=== PATIENT | male | born 1930 | race Caucasian/White ===

== ENCOUNTER → 2019-01-03 | Outpatient (CLI) | payer MEDICARE ==
--- NOTE | 2019-01-04 13:36 | Diagnostic Imaging Report ---
PROCEDURE:X-RAY MODIFIED BARIUM SWALLOW COMPARISON:None. INDICATIONS:Not provided. Fluoroscopy time: 1.9 minutes DAP: 1.43 Gycm2 DISCUSSION:Fluoroscopic examination was performed in conjunction with speech pathology, during swallowing of a variety of thin and thick liquid consistencies. CONCLUSION:Laryngeal penetration with thin liquid administration. Trace silent aspiration of thin liquids with cup and straw sips. Please see the report from speech pathology for complete details. Dictated by: Nikko Timmons M.D. on 01/04/2019 at 13:40 Electronically approved by: Nikko Timmons M.D. on 01/04/2019 at 13:40
== END ==
LOC: DX 11:32
PROVIDERS: ATTEND Psychiatry & Neurology Neurology
DX: R13.10 Dysphagia, unspecified (principal); G20 Parkinson's disease; G31.83 Neurocognitive disorder with Lewy bodies
CPT/HCPCS: 74230

== ENCOUNTER → 2019-02-01 | Outpatient (RCR) | payer MEDICARE ==
--- NOTE | 2019-01-12 15:12 | NUR ---
Patient Name: Damaso Frank: 1930 Age/Sex: 88/maleOrdering Physician: Tyrell Machado MD Clinical Swallow Evaluation/Initial Treatment Session Patient is a 88 year old male with diagnosis of dysphagia and choking. PMH includs dementia. Pt/spouse reported several month h/o difficulty swallowing, liquids more than solids. Pt stated that he coughs every once in a while when he drinks liquids and he must be careful with everything he chews, including oatmeal and mashed potatoes. Pt/spouse denied recent PNA, bronchitis, or URI. Per pt/spouse report, pt is very active. He reportedly goes to the gym 4-5 times per week for cardio and light weight lifting. 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 Pt noted to have very low volume of speech. It was noted that the order for this evaluation included an order for a speech and language eval. Patient completed a modified barium swallow (MBS) study on 01/03/2019. Pt presented with mild to moderate pharyngeal dysphagia c/b consistent premature spillage over the base of tongue, SILENT aspiration of thin liquids, and consistent pharyngeal residue after the swallow. Dysphagia was judged to be secondary to decreased hyolaryngeal excursion, decreased pharyngeal constriction during the swallow, and decreased coordination of the swallow. Recommendation was made for dysphagia therapy to increase strength and coordination of swallow. Patient was seen today in the outpatient clinic for initial treatment of Neuromuscular Electrical Stimulation (NMES) with VitalStim Therapy and traditional dysphagia therapy with pharyngeal exercises. Pt was seen with spouse present. Oral motor exam revealed function that was grossly within normal limits. Patient tolerates room air. Hearing appeared to be WFL. Speech and language skills were functional. Provided extensive education re: need for therapy, purpose of exercises and NMES, and future plan of care. Pt indicated understanding. Pt was given water and he refused hard candy. Pt was instructed to take small sips and swallow hard, feeling all the muscles in her throat contract. Placement 3b was used to target the mylohyoid muscle, the anterior belly of the digastric muscle, the sternohyoid muscle, the omohyoid muscle, the geniohyoid muscle, and the middle pharyngeal constrictors. Channel 1 of the electrodes was aligned horizontally just above the hyoid bone and channel 2 of the electrodes was aligned horizontally at the level of the thyroid notch. This placement was used to improve base of tongue strength, pharyngeal constriction, and UES function. Pt initially tolerated 6.5 mA, but as the session progressed pt tolerated 12.5 mA. Pt received 50 minutes of stimulation. Cough noted X 1, throat clear X 0 and pts eyes watered the majority of the session. During NMES an exercise program was presented, demonstrated, and discussed. Pt completed the exercises with minimal assistance. A home program was assigned. Pt verbalized understanding of the home exercise program. Pt stimulable for vocal loudness with average extended phonation of 79 dB and conversational speech averaged 64 dB. Data supports pt participation in [facility] and this can be initiated either during or after completion of dysphagia therapy with NMES. Education provided as indicated. All questions were answered. Pt/spouse indicated that attending therapy 3x/week would be convenient Impressions: Pt tolerated initial session of NMES well. He continues to report and demonstrate s/s of aspiration during meals which significantly interferes with his quality of life. Pt is an excellent candidate for dysphagia exercises and NMES for improvement of strength and coordination of swallow. Recommendations: 1.Dysphagia therapy to include traditional exercises and NMES 3X/week for 4 weeks for a total of 12 treatment sessions 2.Home exercise program 3.Repeat MBS in 4-6 weeks with new goals to be determined at that time Senior Care Goal: Pt will tolerate least restrictive diet without s/s of aspiration as judged by an objective evaluation. Short Term Goals: 1.Pt will complete 3 repetitions of a set of dysphagia exercises to improve laryngeal elevation, base of tongue retraction, and laryngeal closure, 10 repetitions per exercise, with minimal cues. 2.Pt will tolerate NMES for 45 60 minutes with no clinical s/s of aspiration to improve strength of pharyngeal constrictors, hyolaryngeal excursion, and safety with po intake. 3.Pt will complete home dysphagia exercise program targeting laryngeal elevation, base of tongue strength, and cricopharyngeal function independently. 4.Pt will follow aspiration precautions with independence. 5.Pt will participate in a repeat Modified Barium Swallow study to objectively re-assess swallow safety and function and determine safest diet. Stacie Brown M.S. CCC-MEAT PICK[employer]ER Date of Session: 01/12/19 Dysphagia Evaluation and Treatment X 60 minutes Physicians signature below certifies medical necessity for these skilled interventions Physician Signature Date NOMS Rating for Swallowing: Level 5
== END ==
LOC: PT 01-12 09:48
PROVIDERS: ATTEND Psychiatry & Neurology Neurology
DX: G20 Parkinson's disease (principal); M62.81 Muscle weakness (generalized); R26.2 Difficulty in walking, not elsewhere classified

== ENCOUNTER → 2019-02-10 | Outpatient (CLI) | payer MEDICARE ==
--- NOTE | 2019-02-13 08:49 | Diagnostic Imaging Report ---
PROCEDURE: X-RAY MODIFIED BARIUM SWALLOW COMPARISON: None. INDICATION: Aspiration Radiation Details: Fluoroscopy time: 1.7 minutes Cumulative dose: 5.4 mGy DISCUSSION: Fluoroscopic examination was performed in conjunction with speech pathology during swallowing a variety of thin and thick liquid consistencies. Provided images demonstrate laryngeal penetration and silent aspiration. CONCLUSION: Modified barium swallow demonstrating laryngeal penetration and silent aspiration. Please refer to the speech pathology report for further details. Signed by: Kelvin Kimball MD on 02/13/2019 8:45 AM
== END ==
LOC: DX 10:09
PROVIDERS: ATTEND Specialist
DX: R13.13 Dysphagia, pharyngeal phase (principal); G20 Parkinson's disease; F02.80 Dementia in other diseases classified elsewhere, unspecified severity, without behavioral disturbance, psychotic disturbance, mood disturbance, and anxiety
CPT/HCPCS: 74230

== ENCOUNTER 2019-03-03 12:51 | Outpatient (RCR) | payer MEDICARE ==
--- NOTE | 2019-02-27 09:38 | NUR ---
ST NOTE: Pt cx apt, he is ill. Pt scheduled for 03/02/19 at 1200
== END 2019-03-04 ==
LOC: ST 12:51
PROVIDERS: ATTEND Psychiatry & Neurology Neurology
DX: G20 Parkinson's disease (principal); M62.81 Muscle weakness (generalized); R26.89 Other abnormalities of gait and mobility; R26.2 Difficulty in walking, not elsewhere classified

== ENCOUNTER 2019-03-13 09:53 | Outpatient (RCR) | payer MEDICARE | END 2019-04-03 | LOC: ST 09:53 | PROVIDERS: ATTEND Psychiatry & Neurology Neurology | DX: G20 Parkinson's disease (principal); M62.81 Muscle weakness (generalized); R26.2 Difficulty in walking, not elsewhere classified ==

== ENCOUNTER → 2019-03-15 | Outpatient (CLI) | payer MEDICARE ==
--- NOTE | 2019-03-20 12:41 | Diagnostic Imaging Report ---
PROCEDURE: X-RAY MODIFIED BARIUM SWALLOW COMPARISON: Modified barium swallow of 02/10/2019. INDICATION: Dysphasia Radiation Details: Fluoroscopy time: 1.8 minutes Cumulative dose: 6.1 mGy DISCUSSION: Fluoroscopic examination was performed in conjunction with speech pathology during swallowing a variety of thin and thick liquid consistencies. Provided images demonstrate one episode of laryngeal penetration and no aspiration. CONCLUSION: Modified barium swallow demonstrating one episode of laryngeal penetration and no aspiration. Please refer to the speech pathology report for further details. Signed by: Kelvin Kimball MD on 03/20/2019 12:38 PM
== END ==
LOC: DX 09:29
PROVIDERS: ATTEND Specialist
DX: R13.13 Dysphagia, pharyngeal phase (principal); R09.89 Other specified symptoms and signs involving the circulatory and respiratory systems; F03.90 Unspecified dementia, unspecified severity, without behavioral disturbance, psychotic disturbance, mood disturbance, and anxiety
CPT/HCPCS: 74230

== ENCOUNTER 2020-01-16 19:39 | Emergency (ER) | payer MEDICARE, OTHER ==
--- NOTE | 2020-01-16 20:09 | Emergency Department Note ---
History of Present Illnes History of Present Illness Chief Complaint: Extremity Trauma/Pain History of Present Illness This is a 89 year old male brought by [facility] for unwitnessed fall. Patient was recovering from rehab earlier today and had felt weak and had fallen down. Seen at bedside with no complaint. PCP requested XR for evaluation of R femur. 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 Any updates have been documented here. Past Medical History Recent Fever: No Clinical Suspicion of Infectio: No New/Unexplained Change in Ment: No Other Medical History: parkinsons Past Surgical History: Pacer/AICD Social History Smoking Cessation: Never Smoker Review of Systems Review of Systems Constitutional: Reports no symptoms EENTM: Reports no symptoms Cardiovascular: Reports no symptoms Respiratory: Reports no symptoms Gastrointestinal: Reports no symptoms Genitourinary: Reports no symptoms Musculoskeletal: Reports no symptoms Integumentary: Reports no symptoms Neurological: Reports no symptoms Psychological: Reports no symptoms Endocrine: Reports no symptoms Hematological/Lymphatic: Reports no symptoms Physical Exam Related Data Allergies: Coded Allergies: No Known Allergies (Unverified , 01/16/20) Triage Vital Signs Vital Signs Date Time Temp Pulse Resp B/P (MAP) Pulse Ox O2 Delivery O2 Flow Rate FiO2 01/16/20 19:50 98.3 112 20 150/93 96 Room Air Vital signs reviewed: Yes Physical Exam CONSTITUTIONAL Constitutional: Present cachectic HENT HENT: Present normocephalic, Present atraumatic, Present oropharynx clear/moist, Present nose normal HENT L/R: Present left ext ear normal, Present right ext ear normal EYES Eyes: Reports PERRL, Reports conjunctivae normal NECK Neck: Present ROM normal PULMONARY Pulmonary: Present effort normal, Present breath sounds normal CARDIOVASCULAR Cardiovascular: Present tachycardia GASTROINTESTINAL Abdominal: Present soft, Present nontender, Present bowel sounds normal GENITOURINARY Genitourinary: Present exam deferred SKIN Skin: Present warm, Present dry MUSCULOSKELETAL Musculoskeletal: Present ROM normal NEUROLOGICAL Neurological: Present alert, Present oriented x 3, Present no gross motor or sensory deficits PSYCHOLOGICAL Psychological: Present mood/affect normal, Present judgement normal Results Imaging Imaging results reviewed: Yes Impressions [place] [address] Patient Name: WAYNE MCCARTNEY MR #: [id number] : 1930 Age/Sex: 89/M Req #: [id number] Adm Physician: Ordered by: SAHIL CADET DO Report #: [id number] Location: ER Room/Bed: Procedure: [id number] DX/FEMUR 2 VIEWS MINIMUM LEFT Exam Date: Exam Time: REPORT STATUS: Signed Exam: Left femur, 4 views History: Status post fall, leg pain. Comparison: None. Findings: There is decreased bone mineralization, which limits evaluation of the bony structures.. No acute, displaced fracture or dislocation. Mild to moderate degenerative changes in the left hip joint. 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 Vascular calcifications. No aggressive lytic or suspicious focal sclerotic lesions. No soft tissue swelling. Impression: 1. No acute, displaced fracture or dislocation despite the limitations. Signed by: Dr. Hieu Jackson M.D. on 01/16/2020 9:34 PM Dictated By: HIEU JACKSON MD 33 Transcribed By: ELAYNE on 01/16/202133 COPY TO: SAHIL CADET DO~ [place] [address] Patient Name: WAYNE MCCARTNEY MR #: [id number] : 1930 Age/Sex: 89/M Req #: [id number] [facility] Physician: Ordered by: SAHIL CADET DO Report #: [id number] Location: ER Room/Bed: Procedure: [id number] DX/FEMUR 2 VIEWS MINIMUM LEFT Exam Date: Exam Time: REPORT STATUS: Signed Exam: Left femur, 4 views History: Status post fall, leg pain. Comparison: None. Findings: There is decreased bone mineralization, which limits evaluation of the bony structures.. No acute, displaced fracture or dislocation. Mild to moderate degenerative changes in the left hip joint. 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 Vascular calcifications. No aggressive lytic or suspicious focal sclerotic lesions. No soft tissue swelling. Impression: 1. No acute, displaced fracture or dislocation despite the limitations. Signed by: Dr. Hieu Jacskon M.D. on 01/16/2020 9:34 PM Dictated By: HIEU JACKSON MD 33 Transcribed By: ELAYNE on 01/16/202133 COPY TO: SAHIL CADET DO~ Procedures 12 Lead ECG Interpretation ECG Interpretation : ECG: ECG 1 Silica Filter Operator: Interpreted by ED physician Date: Jan 16, 2020 Time: 20:07 Prior ECG tracings: reviewed Rhythm: sinus rhythm Ectopy: frequent PVC's BPM: 106 ST segments normal: Yes T waves normal: Yes Pacin% capture Assessment & Plan Medical Decision Making MDM Diff Dx : sprain, strain, fracture, contusion Assessment & Plan Final Impression: (1) Left thigh pain Depart Disposition: HOME, SELF-CARE Last Vital Signs Date Time Temp Pulse Resp B/P (MAP) Pulse Ox O2 Delivery O2 Flow Rate FiO2 01/16/20 19:50 98.3 112 20 150/93 96 Room Air SAHIL CADET DO Jan 16, 2020 20:09
--- NOTE | 2020-01-16 21:14 | NUR ---
Patient resting with no distress noted. RR even and unlabored. Will continue to monitor patient.
--- NOTE | 2020-01-16 21:38 | Diagnostic Imaging Report ---
Exam: Left femur, 4 views History: Status post fall, leg pain. Comparison: None. Findings: There is decreased bone mineralization, which limits evaluation of the bony structures.. No acute, displaced fracture or dislocation. Mild to moderate degenerative changes in the left hip joint. 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 Vascular calcifications. No aggressive lytic or suspicious focal sclerotic lesions. No soft tissue swelling. Impression: 1. No acute, displaced fracture or dislocation despite the limitations. Signed by: Dr. Rodrgio Jackson M.D. on 01/16/2020 9:34 PM
--- NOTE | 2020-01-16 21:41 | Diagnostic Imaging Report ---
Exam: Left hip and AP pelvis, 3 views History: Status post fall, left Comparison: None. Findings: There is decreased bone mineralization, which limits evaluation of the bony structures. No acute, displaced fracture or dislocation. Mild to moderate degenerative changes in bilateral hip and sacroiliac joints and lower lower lumbosacral spine. No lytic lesions. Well-circumscribed 2.0 cm round sclerotic focus projecting over the left iliac crest likely represents a gluteal injection granuloma and less likely a bone island. No soft tissue swelling. Impression: 1. No acute, displaced fracture or dislocation despite the limitations of the study. Correlate clinically for need for further imaging. Signed by: Dr. Rodrigo Jackson M.D. on 01/16/2020 9:38 PM
[2020-01-16 21:45] VITALS: BP 142/91
== END 2020-01-16 22:15 | disposition home or self-care (01) ==
LOC: ER 20:00
DX: M79.652 Pain in left thigh (principal); W18.30XA Fall on same level, unspecified, initial encounter; G20 Parkinson's disease; Z95.810 Presence of automatic (implantable) cardiac defibrillator
CPT/HCPCS: 93005; 99283

== ENCOUNTER → 2020-01-26 | Outpatient (CLI) | payer MEDICARE ==
[~2020-01-26] MED LIST: ADVIL100 M1 PO; ASPIRIN81 MG PO; DONEPEZIL HCL5 MG SL; FLOMAX0.4 MG PO; FUROSEMIDE40 MG PO; MIRALAX17 GM PO; MULTI-VITAMIN1 EACH PO; NAPROXEN250 MG PO; SINEMET 25-1001 EACH PO
--- NOTE | 2020-01-26 17:40 | Diagnostic Imaging Report ---
Bone Scan, three-phase Reason for exam: 89 M with left leg pain. Sustained on fall on his left side on 01/16/2020 and has complained of leg pain since the fall. Radiopharmaceutical: Tc-99m MDP 27.4 mCi IV RAC Comparison: Left femur and hip radiographs 01/16/2020 Following intravenous administration of the radiopharmaceutical, dynamic flow and immediate blood pool images of the thighs followed by delayed total body and selected spot images were obtained. The flow and blood pool images show symmetric distribution of tracer in the thighs and knees bilaterally. The hips were not included on these images. Two small round foci of increased tracer are seen in the anterior aspect of the left 3rd and 4th ribs in an adjacent pattern. Focal moderately increased tracer is seen in the femoral neck of the left femur. A left knee prosthesis is present and has not associated increased osteoblastic activity. Impression: 1. Acute fracture in the left femoral neck. 2. Healing rib fractures in the left 3rd and 4th ribs anteriorly. 3. Dr. Ankit Jacobsen was notified of these results at 5:30 pm on 01/26/2020. Signed by: Dr. Annmarie Waite M.D. on 01/26/2020 5:37 PM
== END ==
LOC: NM 09:52
PROVIDERS: ATTEND Specialist
DX: M79.605 Pain in left leg (principal); S72.002A Fracture of unspecified part of neck of left femur, initial encounter for closed fracture; W19.XXXA Unspecified fall, initial encounter
CPT/HCPCS: 78315; A9503

== ENCOUNTER 2020-01-28 11:04 | Inpatient (IN) | payer MEDICARE, OTHER ==
[~2020-01-28] VITALS: Ht 175.3 cm; Wt 80.3 kg
[2020-01-28 11:38] LABS: BASOPHILS % 0.4 % (0.0-1.0); EOSINOPHILS # (AUTO) 0.1 (0.0-0.4); EOSINOPHILS % 1.6 % (0.0-6.0); HEMATOCRIT 42.6 % (38.2-49.6); HEMOGLOBIN 14.1 g/dL (14.0-18.0); LYMPHOCYTES # (AUTO) 0.7 (1.0-3.2); LYMPHOCYTES % 9.4 % (18.0-39.1); MEAN CORPUSCULAR HEMOGLOBIN 32.8 pg (28-32); MEAN CORPUSCULAR HGB CONC 33.1 g/dL (31-35); MEAN CORPUSCULAR VOLUME 99.1 fL (81-99); MONOCYTES # (AUTO) 0.7 (0.2-0.8); MONOCYTES % 9.1 % (4.4-11.3); NEUTROPHILS % 79.1 % (38.7-80.0); PLATELET COUNT 302 x10e3/uL (140-360)
[2020-01-28 11:48] LABS: INR 0.97; PROTHROMBIN TIME 13.4 seconds (11.9-14.5)
[2020-01-28 11:49] LABS: PARTIAL THROMBOPLASTIN TIME 35.3 seconds (23.8-35.5)
[2020-01-28 11:58] LABS: ALANINE AMINOTRANSFERASE 15 IU/L (0-55); ALBUMIN 3.7 g/dL (3.5-5.0); ALBUMIN/GLOBULIN RATIO 1.4 (0.8-2.0); ALKALINE PHOSPHATASE 78 IU/L (40-150); ANION GAP 14.1 mmol/L (8-16); BLOOD UREA NITROGEN 14 mg/dL (7-26); BUN/CREATININE RATIO 17 (6-25); CALCIUM 8.8 mg/dL (8.4-10.2); CARBON DIOXIDE 25 mmol/L (22-29); CHLORIDE 101 mmol/L (98-107); CREATINE KINASE 66 IU/L (30-200); CREATININE, SERUM 0.83 mg/dL (0.72-1.25); EST GLOMERULAR FILTRATION RATE > 60 ML/MIN (60-); GLUCOSE 106 mg/dL (74-118); POTASSIUM 4.1 mmol/L (3.5-5.1); SODIUM 136 mmol/L (136-145)
[2020-01-28] MEDS ORDERED: ONDANSETRON HCL INJ 2MG/ML 2ML 2 MG/ML VIAL IV PRN ×2 (12:15→16:30)
[2020-01-28] MEDS ORDERED: MORPHINE SULFATE 2 MG/ML SYR 1ML IV PRN (12:15)
[2020-01-28] MEDS ORDERED: SODIUM CHLORIDE 0.9% 1000ML 1,000 ML IV SCH (12:15)
[2020-01-28] MEDS ORDERED: SODIUM CHLORIDE 0.9% 1000ML 1,000 ML ONE (12:23)
--- NOTE | 2020-01-28 12:57 | Emergency Department Note ---
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 Arrival Mode: [place] Additional Treatment DEVELOPER ADVISOR: N/A [employer] Director Required: No Onset (how long ago): day(s) (10) Location: LEFT HIP Quality: PAIN Radiation: Reports non-radiation Severity: moderate Onset quality: sudden Timing of current episode: constant Chronicity: new Context: Reports trauma/injury; Denies recent illness Relieving factors: none Exacerbating factors: movement Associated symptoms: Reports denies other symptoms Treatments prior to arrival: none Past Medical/Family History Physician Review I have reviewed the patient's past medical and family history. Any updates have been documented here. Past Medical History Recent Fever: No Clinical Suspicion of Infectio: No New/Unexplained Change in Ment: No Other Medical History: parkinsons, DEMENTIA Past Surgical History: Pacer/AICD Social History Smoking Cessation: Never Smoker Counseling Performed: No Alcohol Use: None Any Illegal Drug Use: No TB Exposure/Symptoms: No Physically hurt or threatened: No Family History Family history of heart diseas: No Other Any Pre-Existing Lines (PICC,: No Review of Systems Review of Systems Constitutional: Reports no symptoms EENTM: Reports no symptoms Cardiovascular: Reports no symptoms Respiratory: Reports no symptoms Gastrointestinal: Reports no symptoms Genitourinary: Reports no symptoms Musculoskeletal: Reports as per HPI Integumentary: Reports no symptoms Neurological: Reports no symptoms Psychological: Reports no symptoms Endocrine: Reports no symptoms Hematological/Lymphatic: Reports no symptoms Physical Exam Related Data Allergies: Coded Allergies: No Known Allergies (Unverified , 01/16/20) Triage Vital Signs Vital Signs Date Time Temp Pulse Resp B/P (MAP) Pulse Ox O2 Delivery O2 Flow Rate FiO2 01/28/20 11:30 100 15 152/101 95 Room Air 01/28/20 11:32 98.1 Vital signs reviewed: Yes Physical Exam CONSTITUTIONAL Constitutional: Present well-developed, Present well-nourished HENT HENT: Present normocephalic, Present atraumatic, Present oropharynx clear/moist, Present nose normal HENT L/R: Present left ext ear normal, Present right ext ear normal EYES Eyes: Reports PERRL, Reports conjunctivae normal NECK Neck: Present ROM normal PULMONARY Pulmonary: Present effort normal, Present breath sounds normal CARDIOVASCULAR Cardiovascular: Present regular rhythm (WITH FREQUENT ECTOPY), Present tachycardia GASTROINTESTINAL Abdominal: Present soft, Present nontender, Present bowel sounds normal GENITOURINARY Genitourinary: Present exam deferred SKIN Skin: Present warm, Present dry MUSCULOSKELETAL Musculoskeletal: Present other (TENDERNESS LEFT HIP, DECR ROM LEFT HIP, PELVIS STABLE) NEUROLOGICAL Neurological: Present alert, Present oriented x 3, Present no gross motor or sensory deficits PSYCHOLOGICAL Psychological: Present mood/affect normal, Present judgement normal Results Laboratory Result Diagram: 01/28/20 1115 01/28/20 1115 Laboratory Laboratory Tests Test 01/28/20 12:10 01/28/20 11:15 White Blood Count 7.59 x10e3/uL (4.8-10.8) Red Blood Count 4.30 x10e6/uL (4.3-5.7) Hemoglobin 14.1 g/dL (14.0-18.0) Hematocrit 42.6 % (38.2-49.6) Mean Corpuscular Volume 99.1 fL (81-99) Mean Corpuscular Hemoglobin 32.8 pg (28-32) Mean Corpuscular Hemoglobin Concent 33.1 g/dL (31-35) Red Cell Distribution Width 13.0 % (11.7-14.4) Platelet Count 302 x10e3/uL (140-360) Neutrophils (%) (Auto) 79.1 % (38.7-80.0) Lymphocytes (%) (Auto) 9.4 % (18.0-39.1) Monocytes (%) (Auto) 9.1 % (4.4-11.3) Eosinophils (%) (Auto) 1.6 % (0.0-6.0) Basophils (%) (Auto) 0.4 % (0.0-1.0) Neutrophils # (Auto) 6.0 (2.1-6.9) Lymphocytes # (Auto) 0.7 (1.0-3.2) Monocytes # (Auto) 0.7 (0.2-0.8) Eosinophils # (Auto) 0.1 (0.0-0.4) Basophils # (Auto) 0.0 (0.0-0.1) Absolute Immature Granulocyte (auto 0.03 x10e3/uL (0-0.1) Prothrombin Time 13.4 seconds (11.9-14.5) Prothromb Time International Ratio 0.97 Activated Partial Thromboplast Time 35.3 seconds (23.8-35.5) Sodium Level 136 mmol/L (136-145) Potassium Level 4.1 mmol/L (3.5-5.1) Chloride Level 101 mmol/L (98-107) Carbon Dioxide Level 25 mmol/L (22-29) Anion Gap 14.1 mmol/L (8-16) Blood Urea Nitrogen 14 mg/dL (7-26) Creatinine 0.83 mg/dL (0.72-1.25) Estimat Glomerular Filtration Rate > 60 ML/MIN (60-) BUN/Creatinine Ratio 17 (6-25) Glucose Level 106 mg/dL (74-118) Calcium Level 8.8 mg/dL (8.4-10.2) Total Bilirubin 0.6 mg/dL (0.2-1.2) Aspartate Amino Transf (AST/SGOT) 25 IU/L (5-34) Alanine Aminotransferase (ALT/SGPT) 15 IU/L (0-55) Alkaline Phosphatase 78 IU/L (40-150) Creatine Kinase 66 IU/L (30-200) Creatine Kinase MB 1.90 ng/mL (0-5.0) Troponin I 0.013 ng/mL (0-0.300) B-Type Natriuretic Peptide 401.4 pg/mL (0-100) Total Protein 6.4 g/dL (6.5-8.1) Albumin 3.7 g/dL (3.5-5.0) Globulin 2.7 g/dL (2.3-3.5) Albumin/Globulin Ratio 1.4 (0.8-2.0) Lab results reviewed: Yes Imaging Imaging results reviewed: Yes Procedures 12 Lead ECG Interpretation ECG Interpretation : ECG: ECG 1 [employer] Director: Interpreted by ED physician Date: Jan 28, 2020 Time: 11:20 Rhythm: paced (VENTRICULAR PACED) Rate: tachycardia (111) QRS axis: left Conduction: left bundle branch block Clinical Impression: abnormal ECG Assessment & Plan Medical Decision Making MDM CHECK CBC, CHEM, ECG, CARDIACS, CXR, T&S - NEEDS MED CLEARANCE FOR LEFT HIP SURGERY. WILL ALSO CHECK CT BRAIN R/O CEREBRAL BLEED. I SPOKE WITH DR MOISE WHO WANTS REPEAT LEFT HIP XRAYS Reassessment Reassessment SPOKE WITH DR CADET FOR ADMISSION AND DR MOISE Assessment & Plan Final Impression: (1) Fracture of femoral neck, left (2) Fall Depart Disposition: ADMITTED Last Vital Signs Date Time Temp Pulse Resp B/P (MAP) Pulse Ox O2 Delivery O2 Flow Rate FiO2 01/28/20 12:32 107 14 143/93 95 Room Air 01/28/20 11:32 98.1 KEITH ORLANDO MD Jan 28, 2020 12:57
--- NOTE | 2020-01-28 13:38 | NUR ---
given parkinsons meds
--- NOTE | 2020-01-28 13:48 | Diagnostic Imaging Report ---
CT BRAIN WO HISTORY: Trauma COMPARISON: None. Technique: Noncontrast axial scans were obtained from skull base to the vertex. Coronal and sagittal reconstructions obtained from the axial data. One or more of the following dose reduction techniques were used: Automated exposure control, adjustment of the mA and/or kV according to patient size, and/or utilization of iterative reconstruction technique. DISCUSSION: Scalp/Skull: Unremarkable. Brain sulci: Mildly prominent. Ventricles: Compensatory dilatation. Extra-axial spaces: No masses or fluid collections. Carotid and vertebral artery calcifications are present. Parenchyma: Moderate bilateral deep white matter hypodensity is likely chronic microvascular ischemic change. Otherwise, no masses, hemorrhage, or large vascular territory acute infarct. Dural sinuses: No abnormal densities. Sellar/Suprasellar region: Intact. Skull base: Intact. Incidental findings: Bilateral ocular lens replacement. Small amount of subcutaneous air is seen in the right premaxillary region. IMPRESSION: 1. No acute intracranial abnormalities. 2. 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 Mild generalized cerebral volume loss. Signed by: Dr. Logan Anderson M.D. on 01/28/2020 1:44 PM
[2020-01-28 13:55] VITALS: BP 136/95
--- NOTE | 2020-01-28 13:56 | Diagnostic Imaging Report ---
HIP LEFT 2-3 VW (+/- PELVIS) - Multiple views HISTORY: FALL 01/15 WITH LEFT FEM NECK FX COMPARISON: Hip x-ray dated 01/16/2020. Bone scan dated 01/26/2020. FINDINGS: Bones: No acute displaced fracture. The left femoral neck fracture reported on bone scan on 01/26/2020 is not seen on this exam. Osseous alignment is within normal limits. Joints: There are bilateral hip joint space narrowing and bone production compatible with osteoarthritis. Soft tissues: The soft tissues appear unremarkable. IMPRESSION: Left femoral neck fracture reported on bone scan on 01/26/2020 is not seen on this exam. Signed by: Héctor Khan MD on 01/28/2020 1:53 PM
--- NOTE | 2020-01-28 13:56 | Diagnostic Imaging Report ---
CT CERVICAL SPINE WO HISTORY: Trauma COMPARISON: Concurrent head CT TECHNIQUE: CT of the cervical spine without contrast. Sagittal and coronal reformations were created. One or more of the following dose reduction techniques were used: Automated exposure control, adjustment of the mA and/or kV according to patient size, and/or utilization of iterative reconstruction technique. FINDINGS: Mild bone demineralization limits evaluation. Cervical lordosis is straightened. There is no significant scoliosis. No definite acute fracture or compression deformity is seen. The craniocervical junction is intact. No gross spinal canal masses are seen. The paravertebral and paraspinal soft tissues are unremarkable. Degenerative changes. Moderate multilevel spondylotic changes are associated with facet arthrosis. There is associated minimal grade 1 anterolisthesis of C3 on C4. Prominent atlantoaxial arthrosis is present as well. At least mild multilevel canal stenoses are due to posterior disc osteophyte complexes. Multilevel moderate to severe bilateral foraminal stenoses are due to uncovertebral and facet arthrosis. Additional findings: Small bilateral pleural effusions are partially imaged. Incidental hypodense left thyroid nodule measures up to 1.3 cm; no further imaging is indicated. Small amount of air is seen in the right submandibular region and in the lower right internal jugular vein. Mild bilateral carotid bulb calcified plaque is present. Cardiac device in the left anterior chest wall is partially imaged. IMPRESSION: 1. No acute osseous abnormalities. 2. Degenerative changes as described. Signed by: Dr. Logan Anderson M.D. on 01/28/2020 1:52 PM
--- NOTE | 2020-01-28 13:58 | Diagnostic Imaging Report ---
EXAMINATION: CHEST SINGLE (NOT PORTABLE) INDICATION: FALL 01/15 WITH LEFT FEM NECK FX COMPARISON: None FINDINGS: AP view TUBES and LINES: 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 . LUNGS/PLEURA: Lungs are well inflated. There are bilateral interstitial opacities, consistent with pulmonary edema.. There is no pleural effusion or pneumothorax. HEART AND MEDIASTINUM: Cardiac size is mildly enlarged. BONES AND SOFT TISSUES: No acute osseous lesion. Soft tissues are unremarkable. UPPER ABDOMEN: No free air under the diaphragm. IMPRESSION: Mild pulmonary edema. Signed by: Héctor Khan MD on 01/28/2020 1:55 PM
[2020-01-28] MEDS ORDERED: GLYCOPYRROLATE INJ 0.2 MG/ML VIAL ONE (14:09)
[2020-01-28] MEDS ORDERED: PROPOFOL IV EMULSION 10 MG/ML 20 ML VIAL ONE (14:09)
[2020-01-28] MEDS ORDERED: ONDANSETRON HCL INJ 2MG/ML 2ML 2 MG/ML VIAL ONE (14:09)
[2020-01-28] MEDS ORDERED: ETOMIDATE 2 MG/ML 10 ML INJ IV ONE (14:09)
[2020-01-28] MEDS ORDERED: LIDOCAINE HCL 2% LOCAL INJ 5 ML SDV VIAL INJ ONE (14:09)
[2020-01-28] MEDS ORDERED: SEVOFLURANE INHAL SOLN 250 ML PEN BTL ONE (14:09)
[2020-01-28] MEDS ORDERED: NEOSTIGMINE 1 MG/ML 10ML VIAL ONE (14:09)
[2020-01-28] MEDS ORDERED: MULTI-VITAMIN1 EACH PO (15:55)
[2020-01-28] MEDS ORDERED: DONEPEZIL HCL5 MG PO (15:55)
[2020-01-28] MEDS ORDERED: ASPIRIN81 MG PO (15:55)
[2020-01-28] MEDS ORDERED: SINEMET 25-1001 EACH PO (15:55)
[2020-01-28] MEDS ORDERED: NAPROXEN250 MG PO (15:55)
[2020-01-28] MEDS ORDERED: FLOMAX0.4 MG PO (15:55)
[2020-01-28] MEDS ORDERED: FUROSEMIDE40 MG PO (15:55)
[2020-01-28 16:29] VITALS: BP 136/95
[2020-01-28] MEDS ORDERED: ACETAMINOPHEN 325 MG TAB PO PRN (16:30)
[2020-01-28] MEDS ORDERED: ONDANSETRON HCL 4 MG ORAL DISINTEGRATING TAB PO PRN (16:30)
[2020-01-28] MEDS ORDERED: FUROSEMIDE INJ 10 MG/ML 4 ML VIAL IV NR ×2 (16:30→18:30)
[2020-01-28] MEDS ORDERED: POTASSIUM CHLORIDE 10MEQ EA PO NR ×2 (16:30→18:30)
[2020-01-28] MEDS ORDERED: ADVIL100 M1 PO (16:32)
--- NOTE | 2020-01-28 17:00 | NUR ---
Given 3 carvidopa/levodopa at this time.
--- NOTE | 2020-01-28 17:38 | NUR ---
Notified Dr. Proctor about the patient running V-tach and the patient's history and pacemaker, notified about the stat EKG result. He stated that he does not want me to read the result to him and he is probably because of the pace maker. The patient is asymptomatic and denies chest discomfort.
--- NOTE | 2020-01-28 18:04 | History and Physical ---
PRIMARY CARE PHYSICIAN: Dr. Ankit Jacobsen. CONSULTING PHYSICIAN: Dr. Mil Brito. CHIEF COMPLAINT: Left hip pain, status post fall approximately two weeks ago. HISTORY OF PRESENT ILLNESS: The patient is an 89 years old male apparently fell on January 15Wednesday a few weeks ago, had negative x-ray again. The patient did follow up with primary care physician and subsequently ambulatory, but then again experiencing increasing pain. PCP did a bone scan that showed left femoral neck fractures, called Dr. Brito and subsequently was sent into the emergency room for evaluation. The patient is now admitted to the hospital for possible intervention. The patient's imaging tests done shown that the patient has left femoral neck fractures reported on the bone scan on January 26, 2020, it was not seen on the imaging test. The patient's chest x-ray was otherwise unremarkable with mild pulmonary edema. He does have a left upper chest dual lead pacemaker. The patient stated that he has significant pain upon ambulation especially to the left leg. The patient does have Parkinson disease. The patient is otherwise stable. Mast virus PCR is still pending. His BNP is 401. The patient is stable. PAST MEDICAL HISTORY: Permanent pacemaker placed approximately a month ago per patient. Parkinson disease. Hypertension. Congestive heart failure. Osteoarthritis. Enlarged prostate. PAST SURGICAL HISTORY: Permanent pacemaker placement. SOCIAL HISTORY: The patient lives with his spouse. He does not smoke or use alcohol. No regular drug. ALLERGIES: NO KNOWN ALLERGIES. HOME MEDICATIONS: The patient is on aspirin 81 mg daily, Sinemet 25/100, 3 tablets 3 times a day, Aricept 5 mg at bedtime, Lasix 40 mg daily, multivitamin, naproxen p.r.n. and Flomax 0.4 mg daily. PHYSICAL EXAMINATION: VITAL SIGNS: Temperature is 98, blood pressure 157/100, pulse rate 101, respiration 18. GENERAL: The patient is not in acute distress. He seems comfortable. HEENT: Normocephalic and atraumatic. Anicteric. NECK: Supple grossly. PULMONARY: Diminished breath sounds without any wheezing. Possible some rales at the bases. CARDIOVASCULAR: Permanent pacemaker left upper chest. S1, S2. Regular rate and rhythm. ABDOMEN: Soft. EXTREMITIES: No cyanosis or edema. NEUROLOGIC: Dementia. Parkinson's without any other focal deficits. LABORATORY DATA: Sodium 136, potassium 4.1, chloride 101, bicarb 25, BUN 14, creatinine 0.8, glucose is 106. WBC 7.6, hemoglobin 14, hematocrit 43, platelets 302,000. Chest x-ray showed vascular congestion. IMPRESSION: 1. Left femoral neck fractures on previous bone scan. Not apparent on the x-ray, however, the patient has signs and symptoms consistent with hip fractures. 2. Baseline Parkinson disease associated with dementia. 3. Baseline permanent pacemaker. PLAN: Obtain 2D echocardiogram. Consult Dr. Proctor for cardiac monitoring. May not need clearance since hip fracture need to be fix. Continue with home medication. Lasix IV for now. We will monitor the patient's electrolytes and correction if needed. The patient will be admitted for management. MD LORA Murray/ANNETTE /[id number]
[2020-01-28] MEDS ORDERED: MIRALAX17 GM PO (18:05)
[2020-01-28] MEDS: HYDROCODONE/APAP 5MG-325MG TAB PO PRN (18:26)
[2020-01-28 19:07] LABS: CREATINE KINASE MB 1.7 ng/mL (0-5.0)
[2020-01-28 20:48] VITALS: BP 126/89
[2020-01-28] MEDS ORDERED: CARBIDOPA/LEVODOPA 25/100 TAB PO SCH (21:00)
[2020-01-28] MEDS: TAMSULOSIN HCL 0.4 MG CAP PO SCH (21:08)
[2020-01-28] MEDS: DONEPEZIL HCL 5 MG TAB PO SCH (21:08)
--- NOTE | 2020-01-28 21:16 | NUR ---
DR. MOISE DOING ROUNDS. NEW ORDER RECEIVED TO APPLY 5LBS SANDHU'S TRACTION TO LEFT LEG.
[2020-01-28 21:30] VITALS: BP 126/89
--- NOTE | 2020-01-28 21:30 | NUR ---
5LBS BUCKS TRACTION APPLIED TO LEFT LEG
[2020-01-29] VITALS (8 sets, daily range): BP systolic 111–150; BP diastolic 71–96
[2020-01-29 01:16] LABS: CREATINE KINASE MB 1.7 ng/mL (0-5.0)
[2020-01-29] MEDS: CARBIDOPA/LEVODOPA 25/100 TAB PO SCH ×4 (06:00→20:21)
[2020-01-29 06:27] LABS: BASOPHILS % 0.3 % (0.0-1.0); EOSINOPHILS # (AUTO) 0.1 (0.0-0.4); EOSINOPHILS % 1.6 % (0.0-6.0); HEMOGLOBIN 13.8 g/dL (14.0-18.0); LYMPHOCYTES # (AUTO) 0.6 (1.0-3.2); LYMPHOCYTES % 9.4 % (18.0-39.1); MEAN CORPUSCULAR HEMOGLOBIN 32.6 pg (28-32); MEAN CORPUSCULAR HGB CONC 32.9 g/dL (31-35); MEAN CORPUSCULAR VOLUME 99.3 fL (81-99); MONOCYTES # (AUTO) 0.5 (0.2-0.8); MONOCYTES % 8.7 % (4.4-11.3); NEUTROPHILS # (AUTO) 4.9 (2.1-6.9); NEUTROPHILS % 79.7 % (38.7-80.0); PLATELET COUNT 284 x10e3/uL (140-360); RED BLOOD COUNT 4.23 x10e6/uL (4.3-5.7); RED CELL DISTRIBUTION WIDTH 12.9 % (11.7-14.4)
[2020-01-29 06:56] LABS: ALANINE AMINOTRANSFERASE 8 IU/L (0-55); ALBUMIN 3.4 g/dL (3.5-5.0); ALBUMIN/GLOBULIN RATIO 1.3 (0.8-2.0); ALKALINE PHOSPHATASE 76 IU/L (40-150); ANION GAP 13.1 mmol/L (8-16); BLOOD UREA NITROGEN 11 mg/dL (7-26); BUN/CREATININE RATIO 15 (6-25); CALCIUM 8.8 mg/dL (8.4-10.2); CARBON DIOXIDE 25 mmol/L (22-29); CHLORIDE 102 mmol/L (98-107); CREATININE, SERUM 0.75 mg/dL (0.72-1.25); EST GLOMERULAR FILTRATION RATE > 60 ML/MIN (60-); GLUCOSE 95 mg/dL (74-118); POTASSIUM 4.1 mmol/L (3.5-5.1); SODIUM 136 mmol/L (136-145)
[2020-01-29] MEDS: FUROSEMIDE 40 MG TAB PO SCH (08:26)
[2020-01-29] MEDS: HYDROCODONE/APAP 5MG-325MG TAB PO PRN (08:26)
[2020-01-29] MEDS: METOPROLOL TARTRATE 50 MG TAB PO SCH ×2 (10:50→17:13)
[2020-01-29] MEDS ORDERED: BISACODYL 10 MG SUPP PR PRN (12:00)
[2020-01-29] MEDS ORDERED: SODIUM CHLORIDE 0.9% 1000ML 1,000 ML IV SCH (15:45)
[2020-01-29] MEDS ORDERED: CEFAZOLIN SOD 1 GM VIAL IV ONE (15:45)
[2020-01-29] MEDS ORDERED: CEFAZOLIN SOD 2 GM/D5W 50ML 50 ML IV PRN (16:30)
--- NOTE | 2020-01-29 18:55 | Consultation ---
DATE OF CONSULTATION: Cardiology Consult HISTORY OF PRESENT ILLNESS: Damaso Gutiérrez is an 89-year-old male with primary history of hypertension, CHF with LVEF of less than 40%, the patient has a pacemaker, admitted for left femoral neck fracture following a fall 2 weeks ago prior to admission. On admission, the patient chest x-ray result shows mild pulmonary edema and admission BNP is 401. The patient denies any shortness of breath. Denies any chest pain or denies cough or any GI symptoms. PAST MEDICAL HISTORY: Hypertension, congestive heart failure, permanent pacemaker placed approximately a month ago, Parkinson disease, osteoarthritis, and also enlarged prostate. PAST SURGICAL HISTORY: Permanent pacemaker placement approximately a month ago. SOCIAL HISTORY: The patient lives with his spouse. He is not a cigarette smoker nor an alcohol user. ALLERGIES: NO KNOWN DRUG ALLERGIES. HOME MEDICATIONS: Includes aspirin, Sinemet, Aricept, Lasix, multivitamin, naproxen, and Flomax. PHYSICAL EXAMINATION: CURRENT VITAL SIGNS: 98.2 temperature, pulse is 98, respiration rate is 19, blood pressure is 150/92, and pulse oximetry 94% on room air. GENERAL: The patient is well developed, well nourished, and no acute respiratory distress. SKIN: Normal in appearance, texture, and temperature. Warm and dry. HEENT: The patient's cranium is normocephalic and atraumatic. Pupils are equally round and reactive to light and accommodation. Sclerae are nonicteric. Ears are normal. Mucosa is moist. Throat is clear. NECK: Supple. Full range of motion. No cervical lymphadenopathy. No thyromegaly. No JVD or hepatojugular reflux. RESPIRATORY: Normal respiratory effort. Lungs are clear to auscultation bilaterally. No rales or wheezing. CARDIOVASCULAR: S1 and S2 is audible. Regular rate and rhythm. No significant murmurs heard. GI: Soft, nontender, and nondistended. Bowel sounds are present. EXTREMITIES: No cyanosis. No edema. Pulses are palpable 1+ throughout. NEUROLOGIC: The patient has Parkinson. No overt tremors observed. Reflexes are normal and symmetrical bilaterally. LABORATORY DATA: Sodium is 136, potassium is 4.1, and creatinine 0.75. Troponin 0.019, 0.013, 0.024. BNP is 401. ASSESSMENT AND PLAN: The patient is admitted with left femoral neck fracture on previous bone scan reported on 01/26/2020. Cardiology is consulted to give clearance for possible surgery. The patient's cardiac status is stable and the patient is cleared for possible surgical intervention from cardiac standpoint. Thank you for this consultation. We will continue to follow. Dictated by Brynn Stewart NP MD JG Blanton/ANNETTE /[id number]
--- NOTE | 2020-01-29 19:16 | NUR ---
WALKING ROUNDS PERFORMED, RECEIVED PT LAYING SEMI FOWLERS IN BED, AAOX3, RR EVEN AND NON-LABORED, ON ROOM AIR. (L) LEG IN 5 POUNDS BUCKS TRACTION. NO S/SX OF DISTRESS NOTED. LEFT PT LAYING SEMI FOWLERS IN BED, BED IN LOW LOCKED POSITION, SIDE RAILS UPX2, CALL LIGHT AND PHONE WITHIN REACH.
--- NOTE | 2020-01-29 20:00 | NUR ---
ALTERNATING PRESSURE PUMP APPLIED TO MATTRESS FOR PUP.
[2020-01-29] MEDS: DONEPEZIL HCL 5 MG TAB PO SCH (20:21)
[2020-01-29] MEDS: TAMSULOSIN HCL 0.4 MG CAP PO SCH (20:21)
[2020-01-30] VITALS (8 sets, daily range): BP systolic 111–163; BP diastolic 71–95
[2020-01-30] MEDS: CARBIDOPA/LEVODOPA 25/100 TAB PO SCH ×4 (05:20→21:00)
[2020-01-30] MEDS: METOPROLOL TARTRATE 50 MG TAB PO SCH ×2 (09:00→17:00)
[2020-01-30] MEDS: FUROSEMIDE 40 MG TAB PO SCH (09:00)
[2020-01-30] MEDS: POLYETHYLENE GLYCOL 3350 17 GM PACK PO SCH (09:00)
[2020-01-30] MEDS ORDERED: BACITRACIN 50,000 UNIT VIAL ONE (12:09)
[2020-01-30] MEDS ORDERED: ONDANSETRON HCL INJ 2MG/ML 2ML 2 MG/ML VIAL IV PRN (14:15)
[2020-01-30] MEDS ORDERED: HYDROCODONE/APAP 5MG-325MG TAB PO PRN (14:15)
[2020-01-30] MEDS ORDERED: SODIUM CHLORIDE 0.9% 1000ML 1,000 ML IV SCH (14:15)
--- NOTE | 2020-01-30 15:00 | Diagnostic Imaging Report ---
EXAMINATION: PELVIS AP 1-2 VIEWS INDICATION: Postoperative COMPARISON: Pelvic and hip radiographs of 01/28/2020, bone scan of 01/26/2020 FINDINGS: AP view of the pelvis demonstrates postoperative findings of left proximal femur ORIF with 3 partially threaded screws. No displaced fracture. Mild degenerative changes of both absentee-shawnee hip joints. Surgical skin cheikh in place. IMPRESSION: Anatomic alignment status post ORIF of the left proximal femur. Signed by: Kelvin Kimball MD on 01/30/2020 2:57 PM
--- NOTE | 2020-01-30 15:35 | NUR ---
SPOKE WITH ABOUT IN NETWORK FACILITIES, SIGNED CHOICE FOR MEDICAL RESORT TRAM AREA
[2020-01-30 15:55] LABS: BILIRUBIN,URINE SMALL (NEGATIVE); CLARITY,URINE SL CLOUDY (CLEAR); COLOR,URINE YELLOW (YELLOW); KETONES,URINE 2+ (NEGATIVE); LEUKOCYTE ESTERASE ,URINE NEGATIVE (NEGATIVE); NITRITE,URINE NEGATIVE (NEGATIVE); PROTEIN,URINE DIPSTICK 1+ (NEGATIVE); URINE UROBILINOGEN 0.2 mg/dL (0.2 - 1)
[2020-01-30 16:12] LABS: BACTERIA,URINE FEW /HPF
--- NOTE | 2020-01-30 20:00 | NUR ---
INITIAL ASSESSMENT COMPLETE, CALL LIGHT IN REACH, O2 2L NC ON PT, VS WNL, TELE ON PT, IV INFUSING, WILSON DRAINING CLEAR YELLOW URINE, SCDS ON PT, NO DISTRESS NOTED,
[2020-01-30] MEDS: TAMSULOSIN HCL 0.4 MG CAP PO SCH (21:00)
[2020-01-30] MEDS: DONEPEZIL HCL 5 MG TAB PO SCH (21:00)
--- NOTE | 2020-01-30 21:25 | Operative Report ---
DATE OF PROCEDURE: 01/28/2020 SURGEON: Mil Brito MD PREOPERATIVE DIAGNOSIS: Displaced left femoral neck fracture. POSTOPERATIVE DIAGNOSIS: Displaced left femoral neck fracture. OPERATIONS/PROCEDURES PERFORMED: The patient underwent a closed reduction and percutaneous screw fixation of the left femoral neck fracture. CV TECH: There was no cafe assistant. ANESTHESIA: General endotracheal intubation anesthesia. IV FLUIDS: Per Anesthesia record. BRIEF DESCRIPTION OF THE PATIENT'S OPERATIVE PROCEDURE: Mr. Gutiérrez was taken to the operating room and placed in a supine position on the fracture table. Following induction of general anesthesia as well as endotracheal intubation, the patient's left lower extremity is placed in a well-padded longitudinal traction and the right lower extremity was placed in a well-padded lithotomy position. Fluoroscopic evaluation of the patient's left hip demonstrated a minimally displaced femoral neck fracture. The leg was manipulated under anesthesia and this resulted in reduction of the patient's femoral neck fracture. The patient's thigh and flank were then prepped and draped in the standard surgical fashion. An incision was created over the proximal lateral thigh in line with the femur. This incision was carried through skin only. Blunt dissection was used to deepen the incision to the level of lateral aspect of the femur. A guide was placed against the lateral aspect of the femur and three pins from the 7.3 cannulated screw system were then inserted from lateral to medial through the neck and into the head of the femur. The position of those pins was checked fluoroscopically in both the AP and lateral planes and found to be appropriate. Measurements were taken and three screws were then inserted over the pins transfixing the fracture and providing compression at the level of the fracture site. The position of the screws as well as reduction of the fracture was again assessed fluoroscopically in both the AP and lateral plane and found to be appropriate. The wound was copiously irrigated. A multilayer closure was provided. Sterile dressings were applied and the patient was then awakened and transferred to the Postanesthesia Care Unit in stable condition. MD PK Alaniz/LIDIAL /[id number]
[2020-01-30] MEDS: CEFAZOLIN SOD 1 GM/NS 50ML 50 ML IV SCH (22:00)
[2020-01-31] VITALS (8 sets, daily range): BP systolic 115–147; BP diastolic 79–89
[2020-01-31 04:44] LABS: BASOPHILS % 0.4 % (0.0-1.0); EOSINOPHILS # (AUTO) 0.1 (0.0-0.4); EOSINOPHILS % 1.2 % (0.0-6.0); HEMATOCRIT 39.3 % (38.2-49.6); HEMOGLOBIN 13.2 g/dL (14.0-18.0); LYMPHOCYTES # (AUTO) 0.6 (1.0-3.2); LYMPHOCYTES % 8.4 % (18.0-39.1); MEAN CORPUSCULAR HEMOGLOBIN 33.2 pg (28-32); MEAN CORPUSCULAR HGB CONC 33.6 g/dL (31-35); MEAN CORPUSCULAR VOLUME 98.7 fL (81-99); MONOCYTES # (AUTO) 0.6 (0.2-0.8); MONOCYTES % 8.5 % (4.4-11.3); NEUTROPHILS % 81.1 % (38.7-80.0); PLATELET COUNT 254 x10e3/uL (140-360); RED BLOOD COUNT 3.98 x10e6/uL (4.3-5.7); RED CELL DISTRIBUTION WIDTH 12.6 % (11.7-14.4)
[2020-01-31 05:01] LABS: ANION GAP 14.9 mmol/L (8-16); BLOOD UREA NITROGEN 15 mg/dL (7-26); BUN/CREATININE RATIO 19 (6-25); CARBON DIOXIDE 24 mmol/L (22-29); CHLORIDE 105 mmol/L (98-107); CREATININE, SERUM 0.81 mg/dL (0.72-1.25); EST GLOMERULAR FILTRATION RATE > 60 ML/MIN (60-); GLUCOSE 79 mg/dL (74-118); POTASSIUM 3.9 mmol/L (3.5-5.1); SODIUM 140 mmol/L (136-145)
[2020-01-31] MEDS: CEFAZOLIN SOD 1 GM/NS 50ML 50 ML IV SCH ×2 (06:00→14:42)
[2020-01-31] MEDS: CARBIDOPA/LEVODOPA 25/100 TAB PO SCH ×4 (06:00→21:30)
--- NOTE | 2020-01-31 06:49 | NUR ---
PT AWAKE, WILSON DCd, TIP INTACT, CONTINUE TO MONITOR DTV
--- NOTE | 2020-01-31 07:40 | NUR ---
ASSUMED CARE. AAOX3. ACYANOTIC. RESTING IN BED. NO DISTRESS NOTED. CALL LIGHT IN REACH. SIDE RAILS UP X2. BED LOW AND LOCKED.
[2020-01-31] MEDS: FUROSEMIDE 40 MG TAB PO SCH (10:00)
[2020-01-31] MEDS: METOPROLOL TARTRATE 50 MG TAB PO SCH ×2 (10:00→17:17)
[2020-01-31] MEDS: POLYETHYLENE GLYCOL 3350 17 GM PACK PO SCH (10:00)
[2020-01-31] MEDS: SENNA-S TABLET PO SCH ×2 (10:00→17:17)
--- NOTE | 2020-01-31 13:11 | NUR ---
AWAKE AND ALERT. ACYANOTIC. RESTING IN BED. NO DISTRESS NOTED. SPOUSE PRESENT AT BEDSIDE. CALL LIGHT IN REACH. SIDE RAILS UP X2. BED LOW AND LOCKED.
[2020-01-31] MEDS: RIVAROXABAN 10 MG TABLET PO SCH (17:17)
[2020-01-31] MEDS: TAMSULOSIN HCL 0.4 MG CAP PO SCH (21:00)
[2020-01-31] MEDS: DONEPEZIL HCL 5 MG TAB PO SCH (21:30)
--- NOTE | 2020-01-31 21:30 | NUR ---
PATIENT IN STABLE CONDITION, NO SIGNS OF DISTRESS NOTED. IS AT BEDSIDE AND PATIENT VOICES NO PAIN AT THIS TIME. DRESSING NOTED ON LEFT HIP, CLEAN, DRY, AND INTACT. NASAL CANNULA IS INTACT AND RUNNING AT 2 LITERS. BED IS IN LOWEST POSITION, BOTH SIDE RAILS ARE UP, CALL LIGHT IS WITHIN REACH, WILL CONTINUE TO MONITOR.
[2020-02-01] VITALS (8 sets, daily range): BP systolic 110–143; BP diastolic 71–93
[2020-02-01 04:43] LABS: HEMATOCRIT 38.4 % (38.2-49.6); HEMOGLOBIN 12.9 g/dL (14.0-18.0)
[2020-02-01] MEDS: CARBIDOPA/LEVODOPA 25/100 TAB PO SCH ×4 (06:35→20:43)
--- NOTE | 2020-02-01 07:21 | NUR ---
ASSUMED CARE. RESTING IN BED WITH EYES CLOSED. ACYANOTIC. EQUAL RISE AND FALL OF CHEST NOTED WITH RESPRIATIONS. NO DISTRESS. CALL LIGHT IN REACH. SIDE RAILS UP X2. BED LOW AND LOCKED. SPOUSE PRESENT AT BEDSIDE.
[2020-02-01] MEDS: METOPROLOL TARTRATE 50 MG TAB PO SCH ×2 (08:53→17:30)
[2020-02-01] MEDS: SENNA-S TABLET PO SCH ×2 (08:53→17:30)
[2020-02-01] MEDS: FUROSEMIDE 40 MG TAB PO SCH (08:53)
[2020-02-01] MEDS: POLYETHYLENE GLYCOL 3350 17 GM PACK PO SCH (08:53)
[2020-02-01] MEDS: OLOPATADINE 5 ML BTL OP SCH ×2 (09:46→20:42)
--- NOTE | 2020-02-01 13:31 | NUR ---
ORDER FOR ACUTE REHAB PT'S CHOSE [facility] FAXED TO [facility] AWAIT INS DECISION TODAY REC'D PHONE CALL FROM VICKEY AT [facility] WHO STATES ACUTE REHAB HAS BEEN DENIED BY MED DIRECTOR PEER TO PEER OFFERED TEXT TO SERAFIN COULTER AND DR CADET REGARDING PEER TO PEER INFORMATION CASE # [id number] LEAVE PT'S NAME [facility] ID # [id number] DR CADET'S NPI NUMBER DR CADET'S PHONE NUMBER DEADLINE FOR PEER TO PEER IS TOMORROW AT 1 PM
[2020-02-01] MEDS: RIVAROXABAN 10 MG TABLET PO SCH (17:30)
[2020-02-01] MEDS: TAMSULOSIN HCL 0.4 MG CAP PO SCH (20:42)
[2020-02-01] MEDS: DONEPEZIL HCL 5 MG TAB PO SCH (20:42)
--- NOTE | 2020-02-01 20:45 | NUR ---
PATIENT IN STABLE CONDITION, NO SIGNS OF DISTRESS NOTED. PATIENT RESTING COMFORTABLY AND VOICES NO PAIN AT THIS TIME. DRESSING NOTED ON LEFT HIP, CLEAN, DRY, AND INTACT. NASAL CANNULA IS INTACT AND RUNNING AT 2 LITERS. BED IS IN LOWEST POSITION, BOTH SIDE RAILS ARE UP, CALL LIGHT IS WITHIN REACH, WILL CONTINUE TO MONITOR.
[2020-02-02] VITALS: BP 123/86
[2020-02-02 04:00] VITALS: BP 135/84
[2020-02-02] MEDS: CARBIDOPA/LEVODOPA 25/100 TAB PO SCH ×4 (06:46→20:25)
--- NOTE | 2020-02-02 07:36 | NUR ---
SPOKE WITH PATIENT'S REGARDING ACUTE CARE/REHAB. SHE VOICES THAT SHE WOULD NOT LIKE TO GO FORWARD AND WOULD LIKE TO SPEAK TO DR. CADET AND CASE MANAGEMENT SOON THEY ARRIVE. CALLED DR. CADET AND HE IS AWARE OF THE SITUATION AND MADE A NOTE TO CASE MANAGEMENT TO UPDATE THEM.
[2020-02-02] MEDS: METOPROLOL TARTRATE 50 MG TAB PO SCH ×2 (08:42→18:09)
[2020-02-02] MEDS: POTASSIUM CHLORIDE 10MEQ EA PO SCH (08:42)
[2020-02-02] MEDS: POLYETHYLENE GLYCOL 3350 17 GM PACK PO SCH (08:43)
[2020-02-02] MEDS: SENNA-S TABLET PO SCH ×2 (08:43→18:10)
[2020-02-02] MEDS: FUROSEMIDE 40 MG TAB PO SCH (08:43)
[2020-02-02 08:45] VITALS: BP 128/70
[2020-02-02] MEDS: OLOPATADINE 5 ML BTL OP SCH ×2 (08:51→20:25)
[2020-02-02 08:59] VITALS: BP 128/70
--- NOTE | 2020-02-02 11:51 | NUR ---
PEER TO PEER DONE BY DR CADET FOR ACUTE REHAB TODAY DENIAL UPHELD ORDERS FOR SNF EVAL AND TRANSFER NOTIFIED PT'S AND SHE IS CALLING CUSTOMER SERVICE TO APPEAL DENIAL
--- NOTE | 2020-02-02 12:50 | NUR ---
EDUCATED ABOUT IMM, SIGNED, FILED IN CHART, WITH COPY LEFT WITH FAMILY AT BEDSIDE.
--- NOTE | 2020-02-02 13:33 | NUR ---
SPOKE WITH ABOUT DENIAL FOR INPATIENT REHAB, WHILE IN ROOM SHE CALLED INSURANCE AND ASKED FOR A EXPEDITED APPEAL ON HER BEHALF. SHE KNOWS THE DOCTOR DID THE PEER TO PEER, BUT STATES WITH HIS PARKINSONS AND NEED TO RETURN TO HIS BASELINE HEALTHIEST SHE FEELS HE WOULD DO BETTER AND NOT RISK GETTING COVID AT A REHAB VERSES THE NEXT LEVEL OF CARE OF A SNF. YUNI ON THE APPEALS LINE TOOK NOTES AND STATES WILL HAVE AN ANSWER IN 24 HOURS AND WILL CALL HOSPITAL AND ASK FOR SYSTEM SPECIALIST OR THE NURSE STATION, AND THE TO LET KNOW DECISION. PACKET WITH [facility], AND RTF IS ON MY DESK IN OFFICE IF DENIED , CAN FAX AT THAT TIME, REFUSES UNTIL THEY GIVE AN ANSWER AT APPROX 230 TOMORROW.
[2020-02-02 17:01] VITALS: BP 122/78
[2020-02-02] MEDS: RIVAROXABAN 10 MG TABLET PO SCH (18:10)
--- OUTSIDE RECORDS SUMMARY | 2020-02-02 18:29 | XMS REPORT | Continuity of Care Document ---
Author Author [facility] Organization [facility] Address [address] [place] [address] Phone Unavailable Care Team Providers Care Packaging Sales Name Role Phone Marc JACOBSEN PCP JOSÉ MIGUEL CADET Attphys Unavailable Marc JACOBSEN Attphys Unavailable SAHIL CADET Attphys Unavailable Jeannette HUYNH, Tyrell Attphys VISIT, [facility] NURSE Attphys Unavailable STARR BANUELOS Attphys Unavailable Amira Moise Attphys [place] Attphys Lars Barker Attphys JOSÉ MIGUEL CADET Admphys Unavailable Payers Payer Name Policy Type Policy Number Effective Date Expiration Date Christa carroll [facility] Care [id number] 2011 00:00:00 C [facility] Medicare A & B [id number] 1996 00:00:00 C [facility] Problems Condition Name Condition Details Condition Category Status Onset Date Resolution Date Last Treatment Date Treating Clinician Comments Source RIGHT KNEE AND BALANCE RIG T KNEE AND BALANCE Active 08/04/2016 [facility] [place] Diagnosis Active 2016-08-04 08:00:00 2016-10-20 11:52:00 [facility] RT KNEE AND BALANCE RT K NEE AND BALANCE Active 07/17/2016 [facility] [place] Diagnosis Active 2016-07-17 08:00:00 2016-09-17 14:55:0 0 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 [place] Active 07/05/2000 [facility] Diagnosis Active 2000-07-05 08:00:00 2016-10-01 15:44:00 [facility] Problem Condition Active [facility] Allergies, Adverse Reactions, Alerts Allergy Name Allergy Type Status Severity Reaction(s) Onset Date Inacti ve Date Treating Clinician Comments Source No Known Allergies DA Active U 2019-08-20 00:00:00 [facility] Social History Social Habit Start Date Stop Date Quantity Comments Source Social History 2015-11-12 04:59:00 2015-11-12 04:59:00 [facility] Sex Assigned At 1930 00:00:00 1930 00:00:00 Male [facility] Medications This patient has no known medications. Procedures This patient has no known procedures. Plan of Care Planned Activity Planned Date Details Comments Source Instructions Fall Prevention [facility] Encounters Start Date/Time End Date/Time Encounter Type Admission Type Attendi [facility] Care Department Encounter ID Source 2020-01-16 20:00:00 2020-01-16 20:00:00 Registered Emergency Room SAHIL CADET [facility] [id number] [facility] 2020-01-04 10:51:08 2020-01-04 13:54:57 Office Visit Tyrell Collier [facility] [id number] 2019-08-18 15:53:01 2019-08-19 23:59:59 Outpatient [facility] [id number] 2019-08-07 08:30:00 2019-08-07 08:30:00 [facility] [id number] 2019-03-13 09:53:00 2019-04-03 23:59:00 Discharged Recurring [facility] [id number] [facility] 2019-03-15 09:29:00 2019-03-15 09:29:00 Registered Clinic 3 ANKIT JACOBSEN [facility] [id number] [facility] 2019-02-03 10:08:00 2019-03-04 23:59:00 Discharged Recurring [facility] [id number] [facility] 2019-02-10 10:09:00 2019-02-10 10:09:00 Registered Clinic 3 ANKIT JACOBSEN [facility] [id number] [facility] 2019-01-12 09:48:00 2019-02-01 23:59:00 Discharged Recurring [facility] [id number] [facility] 2019-01-03 11:32:00 2019-01-03 11:32:00 Registered Clinic 3 STARR BANUELOS [facility] [id number] [facility] 2016-10-20 11:45:00 2016-11-18 23:59:00 Outpatient Mil Moise [id number] 2016-10-01 08:00:00 2016-10-30 23:59:00 [place]patient [place] [facility] [id number] 2016-09-17 14:52:00 2016-10-16 23:59:00 Outpatient Mil Moise [id number] 2016-09-01 08:00:00 2016-09-30 23:59:00 [facility] [place] [facility] [id number] 2016-08-17 09:30:00 2016-09-15 23:59:00 Outpatient Mil Moise [id number] 2015-11-11 09:52:00 2015-11-11 23:59:00 Outpatient Radha Barker [facility] [id number] Results Test Description Test Time Test Comments Results Result Comments Source PELVIS AP 1-2 VIEWS 2020-01-30 14:55:00 [place] [address] Patient Name: WAYNE MCCARTNEY MR #: [id number] : 1930 Age/Sex: 89/M Req #: [id number] [facility] Physician: JOSÉ MIGUEL CADET MD Ordered by: MIL MOISE MD Report #: [id number] Location: MED/SURG Room/Bed: [facility] Procedure: [id number] DX/PELVIS AP 1-2 VIEWS Exam Date: 01/30/20 Exam Time: 1430 REPORT STATUS: Signed EXAMINATION: PELVIS AP 1-2 VIEWS INDICATION: Postoperative COMPARISON: Pelvic and hip radiographs of 01/28/2020, bone scan of 01/26/2020 FINDINGS: AP view of the pelvis demonstrates postoperative findings of left proximal femur ORIF with 3 partially threaded screws. No displaced fracture. Mild degenerative changes of both pokagon hip joints. Surgical skin cheikh in place. IMPRESSION: Anatomic alignment status post ORIF of the left proximal femur. Signed by: Hung Talley MD on 01/30/2020 2:57 PM Dictated By: HUNG TALLEY MD 56 Transcribed By: ELAYNE on 01/30/201456 COPY TO: MIL MOISE MD CHEST SINGLE (NOT PORTABLE) 2020-01-28 13:54:00 [place] [address] Patient Name: WAYNE MCCARTNEY MR #: [id number] : 1930 Age/Sex: 89/M Req #: [id number] Adm Physician: JOSÉ MIGUEL CADET MD Ordered by: KEITH ORLANDO MD Report #: [id number] Location: [facility] Room/Bed: [place] [address] Procedure: [id number] DX/CHEST SINGLE (NOT PORTABLE) Exam Date: 01/28/20 Exam Time: 1256 REPORT STATUS: Signed EXAMINATION: CHEST SINGLE (NOT PORTABLE) INDICATION: FALL 01/15 WITH LEFT FEM NECK FX COMPARISON: None FINDINGS: AP view TUBES and LINES: 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 . LUNGS/PLEURA: Lungs are well inflated. There are bilateral interstitial opacities, consistent with pulmonary edema.. There is no pleural effusion or pneumothorax. HEART AND MEDIASTINUM: Cardiac size is mildly enlarged. BONES AND SOFT TISSUES: No acute osseous lesion. Soft tissues are unremarkable. UPPER ABDOMEN: No free air under the diaphragm. IMPRESSION: Mild pulmonary edema. Signed by: Héctor Agustin MD on 01/28/2020 1:55 PM Dictated By: HÉCTOR AGUSTIN MD 54 Transcribed By: ELAYNE on 01/28/20 135 COPY TO: KEITH ORLANDO MD HIP LEFT 2-3 VW (+/- PELVIS) 2020-01-28 13:49:00 [place] [address] Patient Name: WAYNE MCCARTNEY MR #: [id number] : 1930 Age/Sex: 89/M Req #: [id number] Adm Physician: JOSÉ MIGUEL CADET MD Ordered by: KEITH ORLANDO MD Report #: [id number] Location: [facility] Room/Bed: [place] [address] Procedure: [id number] DX/HIP LEFT 2-3 VW (+/- PELVIS) Exam Date: Exam Time: REPORT STATUS: Signed HIP LEFT 2-3 VW (+/- PELVIS) - Multiple views HISTORY: FALL 01/15 WITH LEFT FEM NECK FX COMPARISON: Hip x-ray dated 01/16/2020. Bone scan dated 01/26/2020. FINDINGS: Bones: No acute displaced fracture. The left femoral neck fracture reported on bone scan on 01/26/2020 is not seen on this exam. Osseous alignment is within normal limits. Joints: There are bilateral hip joint space narrowing and bone production compatible with osteoarthritis. Soft tissues: The soft tissues appear unremarkable. IMPRESSION: Left femoral neck fracture reported on bone scan on 01/26/2020 is not seen on this exam. Signed by: Héctor Agustin MD on 01/28/2020 1:53 PM Dictated By: HÉCTOR AGUSTIN MD 135 Transcribed By: ELAYNE on 01/28/201352 COPY TO: KEITH ORLANDO MD CT CERVICAL SPINE WO 2020-01-28 13:46:00 [place] [address] Patient Name: WAYNE MCCARTNEY MR #: [id number] : 1930 Age/Sex: 89/M Req #: [id number] Adm Physician: JOSÉ MIGUEL CADET MD Ordered by: KEITH ORLANDO MD Report #: [id number] Location: [facility] Room/Bed: [place] [address] Procedure: [id number] CT/CT CERVICAL SPINE WO Exam Date: 01/28/20 Exam Time: 1302 REPORT STATUS: Signed CT CERVICAL SPINE WO HISTORY: Trauma COMPARISON: Concurrent head CT TECHNIQUE: CT of the cervical spine without contrast. Sagittal and coronal reformations were created. One or more of the following dose reduction techniques were used: Automated exposure control, adjustment of the mA and/or kV according to patient size, and/or utilization of iterative reconstruction technique. FINDINGS: Mild bone demineralization limits evaluation. Cervical lordosis is straightened. There is no significant scoliosis. No definite acute fracture or compression deformity is seen. The craniocervical junction is intact. No gross spinal canal masses are seen. The paravertebral and paraspinal soft tissues are unremarkable. Degenerative changes. Moderate multilevel spondylotic changes are associated with facet arthrosis. There is associated minimal grade 1 anterolisthesis of C3 on C4. Prominent atlantoaxial arthrosis is present as well. At least mild multilevel canal stenoses are due to posterior disc osteophyte complexes. Multilevel moderate to severe bilateral foraminal stenoses are due to uncovertebral and facet arthrosis. Additional findings: Small bilateral pleural effusions are partially imaged. Incidental hypodense left thyroid nodule measures up to 1.3 cm; no further imaging is indicated. Small amount of air is seen in the right submandibular region and in the lower right internal jugular vein. Mild bilateral carotid bulb calcified plaque is present. Cardiac device in the left anterior chest wall is partially imaged. IMPRESSION: 1. No acute osseous abnormalities. 2. Degenerative changes as described. Signed by: Dr. Logan Anderson M.D. on 01/28/2020 1:52 PM Dictated By: LOGAN ANDERSON MD 135 Transcribed By: ELAYNE on 01/28/20 135 COPY TO: KEITH ORLANDO MD CT BRAIN WO 2020-01-28 13:39:00 [place] [address] Patient Name: WAYNE MCCARTNEY MR #: [id number] : 1930 Age/Sex: 89/M Req #: [id number] Adm Physician: JOSÉ MIGUEL CADET MD Ordered by: KEITH ORLANDO MD Report #: [id number] Location: [facility] Room/Bed: [place] [address] Procedure: [id number] CT/CT BRAIN WO Exam Date: 01/28/20 Exam Time: 1302 REPORT STATUS: Signed CT BRAIN WO HISTORY: Trauma COMPARISON: None. Technique: Noncontrast axial scans were obtained from skull base to the vertex. Coronal and sagittal reconstructions obtained from the axial data. One or more of the following dose reduction techniques were used: Automated exposure control, adjustment of the mA and/or kV according to patient size, and/or utilization of iterative reconstruction technique. DISCUSSION: Scalp/Skull: Unremarkable. Brain sulci: Mildly prominent. Ventricles: Compensatory dilatation. Extra-axial spaces: No masses or fluid collections. Carotid and vertebral artery calcifications are present. Parenchyma: Moderate bilateral deep white matter hypodensity is likely chronic microvascular ischemic change. Otherwise, no masses, hemorrhage, or large vascular territory acute infarct. Dural sinuses: No abnormal densities. Sellar/Suprasellar region: Intact. Skull base: Intact. Incidental findings: Bilateral ocular lens replacement. Small amount of subcutaneous air is seen in the right premaxillary region. IMPRESSION: 1. No acute intracranial abnormalities. 2. 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 Mild generalized cerebral volume loss. Signed by: Dr. Logan Anderson M.D. on 01/28/2020 1:44 PM Dictated By: LOGAN ANDERSON MD 1344 Transcribed By: ELAYNE on 01/28/20 1344 COPY TO: KEITH ORLANDO MD BONE SCAN, 3 PHASE 2020-01-26 17:18:00 [place] [address] Patient Name: WAYNE MCCARTNEY MR #: [id number] : 1930 Age/Sex: 89/M Req #: [id number] Adm Physician: Ordered by: ANKIT JACOBSEN Report #: [id number] Location: [facility] Room/Bed: Procedure: [id number] NM/BONE SCAN, 3 PHASE Exam Date: 01/26/20 Exam Time: 1045 REPORT STATUS: Signed Bone Scan, three-phase Reason for exam: 89 M with left leg pain. Sustained on fall on his left side on 01/16/2020 and has complained of leg pain since the fall. Radiopharmaceutical: Tc-99m MDP 27.4 mCi IV RAC Comparison: Left femur and hip radiographs 01/16/2020 Following intravenous administration of the radiopharmaceutical, dynamic flow and immediate blood pool images of the thighs followed by delayed total body and selected spot images were obtained. The flow and blood pool images show symmetric distribution of tracer in the thighs and knees bilaterally. The hips were not included on these images. Two small round foci of increased tracer are seen in the anterior aspect of the left 3rd and 4th ribs in an adjacent pattern. Focal moderately increased tracer is seen in the femoral neck of the left femur. A left knee prosthesis is present and has not associated increased osteoblastic activity. Impression: 1. Acute fracture in the left femoral neck. 2. Healing rib fractures in the left 3rd and 4th ribs anteriorly. 3. Dr. Ankit Jacobsen was notified of these results at 5:30 pm on 01/26/2020. Signed by: Dr. Sugar Waite M.D. on 01/26/2020 5:37 PM Dictated By: SUGAR WAITE MD 36 Transcribed By: ELAYNE on 01/26/201736 COPY TO: ANKIT JACOBSEN HIP LEFT 2-3 VW (+/- PELVIS) 2020-01-16 21:36:00 [place] [address] Patient Name: WAYNE MCCARTNEY MR #: [id number] : 1930 Age/Sex: 89/M Req #: [id number] Adm Physician: Ordered by: SAHIL CADET DO Report #: [id number] Location: ER Room/Bed: Procedure: [id number] DX/HIP LEFT 2-3 VW (+/- PELVIS) Exam Date: Exam Time: REPORT STATUS: Signed Exam: Left hip and AP pelvis, 3 views History: Status post fall, left Comparison: None. Findings: There is decreased bone mineralization, which limits evaluation of the bony structures. No acute, displaced fracture or dislocation. Mild to moderate degenerative changes in bilateral hip and sacroiliac joints and lower lower lumbosacral spine. No lytic lesions. Well-circumscribed 2.0 cm round sclerotic focus projecting over the left iliac crest likely represents a gluteal injection granuloma and less likely a bone island. No soft tissue swelling. Impression: 1. No acute, displaced fracture or dislocation despite the limitations of the study. Correlate clinically for need for further imaging. Signed by: Dr. Rodrigo Bianchi M.D. on 01/16/2020 9:38 PM Dictated By: RODRIGO BIANCHI MD 37 Transcribed By: ELAYNE on 01/16/202137 COPY TO: SAHIL CADET DO FEMUR 2 VIEWS MINIMUM LEFT 2020-01-16 21:33:00 [place] [address] Patient Name: WAYNE MCCARTNEY MR #: [id number] : 1930 Age/Sex: 89/M Req #: [id number] Adm Physician: Ordered by: SAHIL CADET DO Report #: [id number] Location: ER Room/Bed: Procedure: [id number] DX/FEMUR 2 VIEWS MINIMUM LEFT Exam Date: Exam Time: REPORT STATUS: Signed Exam: Left femur, 4 views History: Status post fall, leg pain. Comparison: None. Findings: There is decreased bone mineralization, which limits evaluation of the bony structures.. No acute, displaced fracture or dislocation. Mild to moderate degenerative changes in the left hip joint. 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 Vascular calcifications. No aggressive lytic or suspicious focal sclerotic lesions. No soft tissue swelling. Impression: 1. No acute, displaced fracture or dislocation despite the limitations. Signed by: Dr. Rodrigo Bianchi M.D. on 01/16/2020 9:34 PM Dictated By: RODRIGO BIANCHI MD 33 Transcribed By: ELAYNE on 01/16/202133 COPY TO: SAHIL CADET DO COMPREHENSIVE METABOLIC PANEL 2019-08-25 06:31:00 Test Item SODIUM (test code = NA) 140 mmol/L 136-145 N POTASSIUM (test code = K) 3.7 mmol/L 3.5-5.1 N CHLORIDE (test code = CL) 105.0 mmol/L 98-107 N CARBON DIOXIDE (test code = CO2) 28.0 mmol/L 21-32 N ANION GAP (test code = GAP) 10.7 10-20 N GLUCOSE (test code = GLU) 93 mg/dL 74-106 N BLOOD UREA NITROGEN (test code = BUN) 12 mg/dL 7-18 N GLOMERULAR FILTRATION RATE (test code = GFR) > 60 mL/min >=60 Estimated GFR by using Modified MDRD formula.Chronic kidney disease is defined as either kidney damageor GFR <60 mL/min/1.73 m2 for >3 months. CREATININE (test code = CREAT) 0.70 mg/dL 0.7-1.3 N BUN/CREATININE RATIO (test code = BUN/CREA) 17.1 10-20 N TOTAL PROTEIN (test code = PROT) 6.3 gram/dL 6.4-8.2 L ALBUMIN (test code = ALB) 3.5 g/dL 3.4-5.0 N GLOBULIN (test code = GLOB) 2.8 gram/dL 2.7-4.2 N ALBUMIN/GLOBULIN RATIO (test code = A/G) 1.3 0.75-1.50 N CALCIUM (test code = CA) 8.4 mg/dL 8.5-10.1 L BILIRUBIN TOTAL (test code = BILT) 0.90 mg/dL 0.0-1.0 N SGOT/AST (test code = AST) 24 IUnit/L 15-37 N SGPT/ALT (test code = ALT) 8 IUnit/L 12-78 L ALKALINE PHOSPHATASE TOTAL (test code = ALKP) 81 IUnit/L 45-117 N Note change in reference range due to change in reagent. COMPREHENSIVE METABOLIC [id number] 06:18:00* Test Item Value Reference Range Interpretation Comments SODIUM (test code = NA) 140 mmol/L 136-145 N POTASSIUM (test code = K) 3.7 mmol/L 3.5-5.1 N CHLORIDE (test code = CL) 105.0 mmol/L 98-107 N CARBON DIOXIDE (test code = CO2) mmol/L 21-32 ANION GAP (test code = GAP) 10-20 GLUCOSE (test code = GLU) mg/dL 74-106 BLOOD UREA NITROGEN (test code = BUN) mg/dL 7-18 GLOMERULAR FILTRATION RATE (test code = GFR) mL/min >=60 CREATININE (test code = CREAT) mg/dL 0.7-1.3 BUN/CREATININE RATIO (test code = BUN/CREA) 10-20 TOTAL PROTEIN (test code = PROT) gram/dL 6.4-8.2 ALBUMIN (test code = ALB) g/dL 3.4-5.0 GLOBULIN (test code = GLOB) gram/dL 2.7-4.2 ALBUMIN/GLOBULIN RATIO (test code = A/G) 0.75-1.50 CALCIUM (test code = CA) mg/dL 8.5-10.1 BILIRUBIN TOTAL (test code = BILT) mg/dL 0.0-1.0 SGOT/AST (test code = AST) IUnit/L 15-37 SGPT/ALT (test code = ALT) IUnit/L 12-78 ALKALINE PHOSPHATASE TOTAL (test code = ALKP) IUnit/L 45-117 CBC W/AUTO [id number] 05:53:00* Test Item Value Reference Range Interpretation Comments WHITE BLOOD CELL (test code = WBC) 5.3 K/mm3 4.5-12.5 N RED BLOOD CELL (test code = RBC) 4.34 mill/mm3 4.0-5.8 N HEMOGLOBIN (test code = HGB) 14.2 gram/dL 13.0-17.5 N HEMATOCRIT (test code = HCT) 41.3 % 42.0-52.0 L MEAN CELL VOLUME (test code = MCV) 95.2 fL 80-98 N MEAN CELL HGB (test code = MCH) 32.7 picogram 27.0-33.0 N MEAN CELL HGB CONCETRATION (test code = MCHC) 34.4 gram/dL 33.0-36. 0 N RED CELL DISTRIBUTION WIDTH (test code = RDW) 11.8 % 11.6-16. 2 N RED CELL DISTRIBUTION WIDTH SD (test code = RDW-SD) 41.2 fL 37 .0-51.0 N PLATELET COUNT (test code = PLT) 188 K/mm3 150-450 N MEAN PLATELET VOLUME (test code = MPV) 11.5 fL 6.7-11.0 H NEUTROPHIL % (test code = NT%) 56.2 % 39.0-69.0 N IMMATURE GRANULOCYTE % (test code = IG%) 0.2 % 0.0-5.0 N LYMPHOCYTE % (test code = LY%) 23.3 % 25.0-55.0 L MONOCYTE % (test code = MO%) 14.0 % 0.0-10.0 H EOSINOPHIL % (test code = EO%) 5.7 % 0.0-5.0 H BASOPHIL % (test code = BA%) 0.6 % 0.0-1.0 N NUCLEATED RBC % (test code = NRBC%) 0.0 % 0-0 N NEUTROPHIL # (test code = NT#) 2.98 K/mm3 1.8-7.7 N IMMATURE GRANULOCYTE # (test code = IG#) 0.01 x10 3/uL 0-0.03 N LYMPHOCYTE # (test code = LY#) 1.23 K/mm3 1.0-5.0 N MONOCYTE # (test code = MO#) 0.74 K/mm3 0-0.8 N EOSINOPHIL # (test code = EO#) 0.30 K/mm3 0.0-0.5 N BASOPHIL # (test code = BA#) 0.03 K/mm3 0.0-0.2 N NUCLEATED RBC # (test code = NRBC#) 0.00 K/mm3 0.0-0.1 N CBC W/AUTO [id number] 05:50:00* Test Item Value Reference Range Interpretation Comments WHITE BLOOD CELL (test code = WBC) K/mm3 4.5-12.5 RED BLOOD CELL (test code = RBC) mill/mm3 4.0-5.8 HEMOGLOBIN (test code = HGB) 14.2 gram/dL 13.0-17.5 N HEMATOCRIT (test code = HCT) % 42.0-52.0 MEAN CELL VOLUME (test code = MCV) fL 80-98 MEAN CELL HGB (test code = MCH) picogram 27.0-33.0 MEAN CELL HGB CONCETRATION (test code = MCHC) gram/dL 33.0-36. 0 RED CELL DISTRIBUTION WIDTH (test code = RDW) % 11.6-16. 2 RED CELL DISTRIBUTION WIDTH SD (test code = RDW-SD) fL 37 .0-51.0 PLATELET COUNT (test code = PLT) K/mm3 150-450 MEAN PLATELET VOLUME (test code = MPV) fL 6.7-11.0 NEUTROPHIL % (test code = NT%) % 39.0-69.0 IMMATURE GRANULOCYTE % (test code = IG%) % 0.0-5.0 LYMPHOCYTE % (test code = LY%) % 25.0-55.0 MONOCYTE % (test code = MO%) % 0.0-10.0 EOSINOPHIL % (test code = EO%) % 0.0-5.0 BASOPHIL % (test code = BA%) % 0.0-1.0 NEUTROPHIL # (test code = NT#) K/mm3 1.8-7.7 LYMPHOCYTE # (test code = LY#) K/mm3 1.0-5.0 MONOCYTE # (test code = MO#) K/mm3 0-0.8 EOSINOPHIL # (test code = EO#) K/mm3 0.0-0.5 BASOPHIL # (test code = BA#) K/mm3 0.0-0.2 COMPREHENSIVE METABOLIC [id number] 07:27:00* Test Item Value Reference Range Interpretation Comments SODIUM (test code = NA) 139 mmol/L 136-145 N POTASSIUM (test code = K) 3.7 mmol/L 3.5-5.1 N CHLORIDE (test code = CL) 107.0 mmol/L 98-107 N CARBON DIOXIDE (test code = CO2) 26.0 mmol/L 21-32 N ANION GAP (test code = GAP) 9.7 10-20 L GLUCOSE (test code = GLU) 98 mg/dL 74-106 N BLOOD UREA NITROGEN (test code = BUN) 11 mg/dL 7-18 N GLOMERULAR FILTRATION RATE (test code = GFR) > 60 mL/min >=60 Estimated GFR by using Modified MDRD formula.Chronic kidney disease is defined as either kidney damageor GFR <60 mL/min/1.73 m2 for >3 months. CREATININE (test code = CREAT) 0.70 mg/dL 0.7-1.3 N BUN/CREATININE RATIO (test code = BUN/CREA) 15.7 10-20 N TOTAL PROTEIN (test code = PROT) 6.7 gram/dL 6.4-8.2 N ALBUMIN (test code = ALB) 3.4 g/dL 3.4-5.0 N GLOBULIN (test code = GLOB) 3.3 gram/dL 2.7-4.2 N ALBUMIN/GLOBULIN RATIO (test code = A/G) 1.0 0.75-1.50 N CALCIUM (test code = CA) 8.5 mg/dL 8.5-10.1 N BILIRUBIN TOTAL (test code = BILT) 1.10 mg/dL 0.0-1.0 H SGOT/AST (test code = AST) 26 IUnit/L 15-37 N SGPT/ALT (test code = ALT) 7 IUnit/L 12-78 L ALKALINE PHOSPHATASE TOTAL (test code = ALKP) 80 IUnit/L 45-117 N Note change in reference range due to change in reagent. COMPREHENSIVE METABOLIC [id number] 07:16:00* Test Item Value Reference Range Interpretation Comments SODIUM (test code = NA) 139 mmol/L 136-145 N POTASSIUM (test code = K) 3.7 mmol/L 3.5-5.1 N CHLORIDE (test code = CL) 107.0 mmol/L 98-107 N CARBON DIOXIDE (test code = CO2) mmol/L 21-32 ANION GAP (test code = GAP) 10-20 GLUCOSE (test code = GLU) mg/dL 74-106 BLOOD UREA NITROGEN (test code = BUN) mg/dL 7-18 GLOMERULAR FILTRATION RATE (test code = GFR) mL/min >=60 CREATININE (test code = CREAT) mg/dL 0.7-1.3 BUN/CREATININE RATIO (test code = BUN/CREA) 10-20 TOTAL PROTEIN (test code = PROT) gram/dL 6.4-8.2 ALBUMIN (test code = ALB) g/dL 3.4-5.0 GLOBULIN (test code = GLOB) gram/dL 2.7-4.2 ALBUMIN/GLOBULIN RATIO (test code = A/G) 0.75-1.50 CALCIUM (test code = CA) mg/dL 8.5-10.1 BILIRUBIN TOTAL (test code = BILT) mg/dL 0.0-1.0 SGOT/AST (test code = AST) IUnit/L 15-37 SGPT/ALT (test code = ALT) IUnit/L 12-78 ALKALINE PHOSPHATASE TOTAL (test code = ALKP) IUnit/L 45-117 CBC W/AUTO [id number] 07:05:00* Test Item Value Reference Range Interpretation Comments WHITE BLOOD CELL (test code = WBC) 6.5 K/mm3 4.5-12.5 N RED BLOOD CELL (test code = RBC) 4.36 mill/mm3 4.0-5.8 N HEMOGLOBIN (test code = HGB) 14.3 gram/dL 13.0-17.5 N HEMATOCRIT (test code = HCT) 41.4 % 42.0-52.0 L MEAN CELL VOLUME (test code = MCV) 95.0 fL 80-98 N MEAN CELL HGB (test code = MCH) 32.8 picogram 27.0-33.0 N MEAN CELL HGB CONCETRATION (test code = MCHC) 34.5 gram/dL 33.0-36. 0 N RED CELL DISTRIBUTION WIDTH (test code = RDW) 11.9 % 11.6-16. 2 N RED CELL DISTRIBUTION WIDTH SD (test code = RDW-SD) 42.0 fL 37 .0-51.0 N PLATELET COUNT (test code = PLT) 170 K/mm3 150-450 N MEAN PLATELET VOLUME (test code = MPV) 11.3 fL 6.7-11.0 H NEUTROPHIL % (test code = NT%) 68.8 % 39.0-69.0 N IMMATURE GRANULOCYTE % (test code = IG%) 0.3 % 0.0-5.0 N LYMPHOCYTE % (test code = LY%) 15.5 % 25.0-55.0 L MONOCYTE % (test code = MO%) 12.6 % 0.0-10.0 H EOSINOPHIL % (test code = EO%) 2.5 % 0.0-5.0 N BASOPHIL % (test code = BA%) 0.3 % 0.0-1.0 N NUCLEATED RBC % (test code = NRBC%) 0.0 % 0-0 N NEUTROPHIL # (test code = NT#) 4.44 K/mm3 1.8-7.7 N IMMATURE GRANULOCYTE # (test code = IG#) 0.02 x10 3/uL 0-0.03 N LYMPHOCYTE # (test code = LY#) 1.00 K/mm3 1.0-5.0 N MONOCYTE # (test code = MO#) 0.81 K/mm3 0-0.8 H EOSINOPHIL # (test code = EO#) 0.16 K/mm3 0.0-0.5 N BASOPHIL # (test code = BA#) 0.02 K/mm3 0.0-0.2 N NUCLEATED RBC # (test code = NRBC#) 0.00 K/mm3 0.0-0.1 N [id number] 20:39:00* Test Item Value Reference Range Interpretation Comments GLUBED (test code = GLUBED) 113 mg/dL 74-106 H Performed by certified nylon operator at [facility] - XR CHEST 2 [id number] 13:02:00 FAX: Griselda Toure MD [phone] [place]: St: DIS FAX: Ondina Nova DO [phone] Name: WAYNE MCCARTNEY [facility] : 1930 Age/S: 89/M [address] Unit #: [id number] Loc: V.5013 [place] [address] Phys: Ondina Way DO Acct: [id number] Dis Date: [id number] Status: DIS IN PHONE #: [phone] Exam Date: 08/23/2019 1220 FAX #: [phone] Reason: S/P PPM INSERTION EXAMS: CPT CODE: [id number] XR CHEST 2 V 64147 REASON FOR EXAM: S/P PPM INSERTION Exam Order Date: 08/23/2019 5:00 AM Ordering M.D.: Ondina Nova DO PROCEDURE: - XR CHEST 2 V COMPARISON: Chest x-ray August 22, 2019 FINDINGS: The lungs are clear. There is no pleural effusion or pneumothorax. Pulmonary vascularity is within normal limits. Cardiomediastinal silhouette is normal in size for technique. The mediastinal contours are within normal limits. Left subclavian vein pacemaker is unchanged with leads in the right atrium, left ventricle, and right ventricle. There are degenerative changes in the spine. The visualized upper abdomen is within normal limits. Pacemaker leads terminating in the right atrium, right ventricle, and left ventricle and are unchanged from the previous study. IMPRESSION: No acute cardiopulmonary process. Location: [facility] at 1302 Reported and signed by: Tyson Kamara MD CC: Griselda Smith MD; Ondina Nova DO Technologist: Margo Babin RT(R) Trnscrd Date/Time/By: 08/23/2019 (5905) : By: [email or web address] Orig Print D/T: S: 08/23/2019 (1962) PAGE 1 Signed Report - XR CHEST 2 V 2019-08-23 13:02:00 FAX: Griselda Toure MD [phone] [place]: St: ADM FAX: Ondina Nova DO [phone] Name: WAYNE MCCARTNEY [facility] : 1930 Age/S: 89/M [address] Unit #: [id number] Loc: V.5013 [place] [address] Phys: Ondina Way DO Acct: [id number] Dis Date: Status: ADM IN PHONE #: [phone] Exam Date: 08/23/2019 1220 FAX #: [phone] Reason: S/P PPM INSERTION EXAMS: CPT CODE: [id number] XR CHEST 2 V [id number] REASON FOR EXAM: S/P PPM INSERTION Exam Order Date: 08/23/2019 5:00 AM Ordering M.DKathy: Ondina Nova DO PROCEDURE: - XR CHEST 2 V COMPARISON: Chest x-ray August 22, 2019 FINDINGS: The lungs are clear. There is no pleural effusion or pneumothorax. Pulmonary vascularity is within normal limits. Cardiomediastinal silhouette is normal in size for technique. The mediastinal contours are within normal limits. Left subclavian vein pacemaker is unchanged with leads in the right atrium, left ventricle, and right ventricle. There are degenerative changes in the spine. The visualized upper abdomen is within normal limits. Pacemaker leads terminating in the right atrium, right ventricle, and left ventricle and are unchanged from the previous study. IMPRESSION: No acute cardiopulmonary process. Location: [facility] at 1302 Reported and signed by: Tyson Kamara MD CC: Griselda Smith MD; Ondina Nova DO Technologist: Margo Babin RT(R) Trnscrd Date/Time/By: 08/23/2019 (9748) : By: [email or web address] Orig Print D/T: S: 08/23/2019 (4122) PAGE 1 Signed Report - XR CHEST 1 V 2019-08-22 13:43:00 FAX: Griselda Toure MD [phone] [place]: St: DIS FAX: RohiniOndina [phone] Name: WAYNE MCCARTNEY [facility] : 1930 Age/S: 89/M [address] Unit #: [id number] Loc: V.5013 [place] [address] Phys: Ondina Way DO Acct: [id number] Dis Date: [id number] Status: DIS IN PHONE #: [phone] Exam Date: 08/22/2019 1328 FAX #: [phone] Reason: S/P PPM INSERTION EXAMS: CPT CODE: [id number] XR CHEST 1 V 80061 REASON FOR EXAM: S/P PPM INSERTION Exam Order Date: 08/22/2019 1:17 PM Ordering MKathyDKathy: Ondina Nova DO PROCEDURE: - XR CHEST 1 V COMPARISON: Chest x-ray August 20, 2019 FINDINGS: There is subsegmental atelectasis in the left lung base. Remainder of the lungs are clear. Cardiomediastinal silhouette is normal in size for technique. The aorta is tortuous. There is been interval placement of a left subclavian biventricular pacemaker with leads in the right atrium, right ventricle, and left ventricle. There are degenerative changes in the spine. The visualized upper abdomen is within normal limits. IMPR ESSION: No pneumothorax following placement of left subclavian biventric ular pacemaker. Lungs are clear other than mild subsegmental ate lectasis in the left lung base. Location: [facility] at 1343 Reported and signed by: Tyson Kamara MD CC: Griselda Smith MD; Ondina Pop DO Technologist: Hodan Key(Jeane); STUDENT T ECHNOLOGIST Trnscrd Date/Time/By: 08/22/2019 (1144) : By: [email or web address] Orig Print D/T: S: 08/22/2019 (8680) PAGE 1 Signed Report - XR CHEST 1 V 2019-08-22 13:43:00 FAX: Griselda Toure MD [phone] [place]: B St: ADM FAX: Ondina Nova DO [phone] Name: WAYNE MCCARTNEY [facility] : 1930 Age/S: 89/M [address] Unit #: [id number] Loc: V.4032 [place] [address] Phys: Ondina Way DO Acct: [id number] Dis Date: Status: ADM IN PHONE #: [phone] Exam Date: 08/22/2019 1328 FAX #: [phone] Reason: S/P PPM INSERTION EXAMS: CPT CODE: [id number] XR CHEST 1 V 55715 REASON FOR EXAM: S/P PPM INSERTION Exam Order Date: 08/22/2019 1:17 PM Ordering M.D.: Ondina Nova PROCEDURE: - XR CHEST 1 V COMPARISON: Chest x-ray August 20, 2019 FINDINGS: There is subsegmental atelectasis in the left lung base. Remainder of the lungs are clear. Cardiomediastinal silhouette is normal in size for technique. The aorta is tortuous. There is been interval placement of a left subclavian biventricular pacemaker with leads in the right atrium, right ventricle, and left ventricle. There are degenerative changes in the spine. The visualized upper abdomen is within normal limits. IMPR ESSION: No pneumothorax following placement of left subclavian biventric ular pacemaker. Lungs are clear other than mild subsegmental ate lectasis in the left lung base. Location: [facility] at 1343 Reported and signed by: Tyson Kamara MD CC: Griselda Smith MD; Peg chavezOndina Birmingham DO Technologist: Hodan Key(Jeane); STUDENT T ECHNOLOGIST Trnscrd Date/Time/By: 08/22/2019 (1343) : By: [email or web address] Orig Print D/T: S: 08/22/2019 (3767) PAGE 1 Signed Report BASIC METABOLIC [id number] 05:59:00* Test Item Value Reference Range Interpretation Comments SODIUM (test code = NA) 143 mmol/L 136-145 N POTASSIUM (test code = K) 3.5 mmol/L 3.5-5.1 N CHLORIDE (test code = CL) 110.0 mmol/L 98-107 H CARBON DIOXIDE (test code = CO2) 26.0 mmol/L 21-32 N ANION GAP (test code = GAP) 10.5 10-20 N GLUCOSE (test code = GLU) 102 mg/dL 74-106 N BLOOD UREA NITROGEN (test code = BUN) 15 mg/dL 7-18 N GLOMERULAR FILTRATION RATE (test code = GFR) > 60 mL/min >=60 Estimated GFR by using Modified MDRD formula.Chronic kidney disease is defined as either kidney damageor GFR <60 mL/min/1.73 m2 for >3 months. CREATININE (test code = CREAT) 0.90 mg/dL 0.7-1.3 N BUN/CREATININE RATIO (test code = BUN/CREA) 16.7 10-20 N CALCIUM (test code = CA) 8.7 mg/dL 8.5-10.1 N BASIC METABOLIC [id number] 05:54:00* Test Item Value Reference Range Interpretation Comments SODIUM (test code = NA) 143 mmol/L 136-145 N POTASSIUM (test code = K) 3.5 mmol/L 3.5-5.1 N CHLORIDE (test code = CL) 110.0 mmol/L 98-107 H CARBON DIOXIDE (test code = CO2) mmol/L 21-32 ANION GAP (test code = GAP) 10-20 GLUCOSE (test code = GLU) mg/dL 74-106 BLOOD UREA NITROGEN (test code = BUN) mg/dL 7-18 GLOMERULAR FILTRATION RATE (test code = GFR) mL/min >=60 CREATININE (test code = CREAT) mg/dL 0.7-1.3 BUN/CREATININE RATIO (test code = BUN/CREA) 10-20 CALCIUM (test code = CA) mg/dL 8.5-10.1 CBC W/AUTO [id number] 05:23:00* Test Item Value Reference Range Interpretation Comments WHITE BLOOD CELL (test code = WBC) 5.6 K/mm3 4.5-12.5 N RED BLOOD CELL (test code = RBC) 4.22 mill/mm3 4.0-5.8 N HEMOGLOBIN (test code = HGB) 13.9 gram/dL 13.0-17.5 N HEMATOCRIT (test code = HCT) 40.7 % 42.0-52.0 L MEAN CELL VOLUME (test code = MCV) 96.4 fL 80-98 N MEAN CELL HGB (test code = MCH) 32.9 picogram 27.0-33.0 N MEAN CELL HGB CONCETRATION (test code = MCHC) 34.2 gram/dL 33.0-36. 0 N RED CELL DISTRIBUTION WIDTH (test code = RDW) 12.1 % 11.6-16. 2 N RED CELL DISTRIBUTION WIDTH SD (test code = RDW-SD) 42.6 fL 37 .0-51.0 N PLATELET COUNT (test code = PLT) 228 K/mm3 150-450 N MEAN PLATELET VOLUME (test code = MPV) 11.3 fL 6.7-11.0 H NEUTROPHIL % (test code = NT%) 65.9 % 39.0-69.0 N IMMATURE GRANULOCYTE % (test code = IG%) 0.2 % 0.0-5.0 N LYMPHOCYTE % (test code = LY%) 22.6 % 25.0-55.0 L MONOCYTE % (test code = MO%) 9.9 % 0.0-10.0 N EOSINOPHIL % (test code = EO%) 0.9 % 0.0-5.0 N BASOPHIL % (test code = BA%) 0.5 % 0.0-1.0 N NUCLEATED RBC % (test code = NRBC%) 0.0 % 0-0 N NEUTROPHIL # (test code = NT#) 3.71 K/mm3 1.8-7.7 N IMMATURE GRANULOCYTE # (test code = IG#) 0.01 x10 3/uL 0-0.03 N LYMPHOCYTE # (test code = LY#) 1.27 K/mm3 1.0-5.0 N MONOCYTE # (test code = MO#) 0.56 K/mm3 0-0.8 N EOSINOPHIL # (test code = EO#) 0.05 K/mm3 0.0-0.5 N BASOPHIL # (test code = BA#) 0.03 K/mm3 0.0-0.2 N NUCLEATED RBC # (test code = NRBC#) 0.00 K/mm3 0.0-0.1 N BASIC METABOLIC [id number] 05:12:00* Test Item Value Reference Range Interpretation Comments SODIUM (test code = NA) 143 mmol/L 136-145 N POTASSIUM (test code = K) 3.7 mmol/L 3.5-5.1 N CHLORIDE (test code = CL) 109.0 mmol/L 98-107 H CARBON DIOXIDE (test code = CO2) 27.0 mmol/L 21-32 N ANION GAP (test code = GAP) 10.7 10-20 N GLUCOSE (test code = GLU) 84 mg/dL 74-106 N BLOOD UREA NITROGEN (test code = BUN) 12 mg/dL 7-18 N GLOMERULAR FILTRATION RATE (test code = GFR) > 60 mL/min >=60 Estimated GFR by using Modified MDRD formula.Chronic kidney disease is defined as either kidney damageor GFR <60 mL/min/1.73 m2 for >3 months. CREATININE (test code = CREAT) 0.70 mg/dL 0.7-1.3 N BUN/CREATININE RATIO (test code = BUN/CREA) 17.1 10-20 N CALCIUM (test code = CA) 8.4 mg/dL 8.5-10.1 L BASIC METABOLIC [id number] 05:11:00* Test Item Value Reference Range Interpretation Comments SODIUM (test code = NA) 143 mmol/L 136-145 N POTASSIUM (test code = K) 3.7 mmol/L 3.5-5.1 N CHLORIDE (test code = CL) 109.0 mmol/L 98-107 H CARBON DIOXIDE (test code = CO2) mmol/L 21-32 ANION GAP (test code = GAP) 10-20 GLUCOSE (test code = GLU) mg/dL 74-106 BLOOD UREA NITROGEN (test code = BUN) mg/dL 7-18 GLOMERULAR FILTRATION RATE (test code = GFR) mL/min >=60 CREATININE (test code = CREAT) mg/dL 0.7-1.3 BUN/CREATININE RATIO (test code = BUN/CREA) 10-20 CALCIUM (test code = CA) 8.4 mg/dL 8.5-10.1 L CBC W/AUTO [id number] 04:45:00* Test Item Value Reference Range Interpretation Comments WHITE BLOOD CELL (test code = WBC) 6.1 K/mm3 4.5-12.5 N RED BLOOD CELL (test code = RBC) 4.29 mill/mm3 4.0-5.8 N HEMOGLOBIN (test code = HGB) 13.9 gram/dL 13.0-17.5 N HEMATOCRIT (test code = HCT) 41.2 % 42.0-52.0 L MEAN CELL VOLUME (test code = MCV) 96.0 fL 80-98 N MEAN CELL HGB (test code = MCH) 32.4 picogram 27.0-33.0 N MEAN CELL HGB CONCETRATION (test code = MCHC) 33.7 gram/dL 33.0-36. 0 N RED CELL DISTRIBUTION WIDTH (test code = RDW) 12.2 % 11.6-16. 2 N RED CELL DISTRIBUTION WIDTH SD (test code = RDW-SD) 42.9 fL 37 .0-51.0 N PLATELET COUNT (test code = PLT) 235 K/mm3 150-450 N MEAN PLATELET VOLUME (test code = MPV) 11.3 fL 6.7-11.0 H NEUTROPHIL % (test code = NT%) 65.5 % 39.0-69.0 N IMMATURE GRANULOCYTE % (test code = IG%) 0.3 % 0.0-5.0 N LYMPHOCYTE % (test code = LY%) 22.1 % 25.0-55.0 L MONOCYTE % (test code = MO%) 10.6 % 0.0-10.0 H EOSINOPHIL % (test code = EO%) 1.2 % 0.0-5.0 N BASOPHIL % (test code = BA%) 0.3 % 0.0-1.0 N NUCLEATED RBC % (test code = NRBC%) 0.0 % 0-0 N NEUTROPHIL # (test code = NT#) 3.96 K/mm3 1.8-7.7 N IMMATURE GRANULOCYTE # (test code = IG#) 0.02 x10 3/uL 0-0.03 N LYMPHOCYTE # (test code = LY#) 1.34 K/mm3 1.0-5.0 N MONOCYTE # (test code = MO#) 0.64 K/mm3 0-0.8 N EOSINOPHIL # (test code = EO#) 0.07 K/mm3 0.0-0.5 N BASOPHIL # (test code = BA#) 0.02 K/mm3 0.0-0.2 N NUCLEATED RBC # (test code = NRBC#) 0.00 K/mm3 0.0-0.1 N MANUAL DIFF REQUIRED (test code = MDIFF) NO CBC W/AUTO [id number] 04:33:00* Test Item Value Reference Range Interpretation Comments WHITE BLOOD CELL (test code = WBC) K/mm3 4.5-12.5 RED BLOOD CELL (test code = RBC) mill/mm3 4.0-5.8 HEMOGLOBIN (test code = HGB) 13.9 gram/dL 13.0-17.5 N HEMATOCRIT (test code = HCT) % 42.0-52.0 MEAN CELL VOLUME (test code = MCV) fL 80-98 MEAN CELL HGB (test code = MCH) picogram 27.0-33.0 MEAN CELL HGB CONCETRATION (test code = MCHC) gram/dL 33.0-36. 0 RED CELL DISTRIBUTION WIDTH (test code = RDW) % 11.6-16. 2 RED CELL DISTRIBUTION WIDTH SD (test code = RDW-SD) fL 37 .0-51.0 PLATELET COUNT (test code = PLT) K/mm3 150-450 MEAN PLATELET VOLUME (test code = MPV) fL 6.7-11.0 NEUTROPHIL % (test code = NT%) % 39.0-69.0 IMMATURE GRANULOCYTE % (test code = IG%) % 0.0-5.0 LYMPHOCYTE % (test code = LY%) % 25.0-55.0 MONOCYTE % (test code = MO%) % 0.0-10.0 EOSINOPHIL % (test code = EO%) % 0.0-5.0 BASOPHIL % (test code = BA%) % 0.0-1.0 NEUTROPHIL # (test code = NT#) K/mm3 1.8-7.7 LYMPHOCYTE # (test code = LY#) K/mm3 1.0-5.0 MONOCYTE # (test code = MO#) K/mm3 0-0.8 EOSINOPHIL # (test code = EO#) K/mm3 0.0-0.5 BASOPHIL # (test code = BA#) K/mm3 0.0-0.2 [id number] 09:17:00* Test Item Value Reference Range Interpretation Comments PHOSPHORUS (test code = PHOS) 3.2 mg/dL 2.5-4.9 N THYROID STIMULATING [id number] 09:17:00* Test Item Value Reference Range Interpretation Comments THYROID STIMULATING HORMONE (test code = TSH) 3.080 uIU/mL 0.36-3.7 4 N TSH REFERENCE RANGES: EUTHYROID: 0.35 - 4.3 mIU/mL HYPO : > 5.5 mIU/mL HYPER : < 0.35 mIU/mL BASIC METABOLIC [id number] 09:17:00* Test Item Value Reference Range Interpretation Comments SODIUM (test code = NA) 140 mmol/L 136-145 N POTASSIUM (test code = K) 3.7 mmol/L 3.5-5.1 N CHLORIDE (test code = CL) 106.0 mmol/L 98-107 N CARBON DIOXIDE (test code = CO2) 30.0 mmol/L 21-32 N ANION GAP (test code = GAP) 7.7 10-20 L GLUCOSE (test code = GLU) 154 mg/dL 74-106 H BLOOD UREA NITROGEN (test code = BUN) 15 mg/dL 7-18 N GLOMERULAR FILTRATION RATE (test code = GFR) > 60 mL/min >=60 Estimated GFR by using Modified MDRD formula.Chronic kidney disease is defined as either kidney damageor GFR <60 mL/min/1.73 m2 for >3 months. CREATININE (test code = CREAT) 0.80 mg/dL 0.7-1.3 N BUN/CREATININE RATIO (test code = BUN/CREA) 18.8 10-20 N CALCIUM (test code = CA) 8.5 mg/dL 8.5-10.1 N [id number] 09:17:00* Test Item Value Reference Range Interpretation Comments MAGNESIUM (test code = MAG) 2.2 mg/dL 1.8-2.4 N [id number] 09:17:00* Test Item Value Reference Range Interpretation Comments TROPONIN-I (test code = TROPI) <0.015 ng/mL 0-0.045 N PROTHROMBIN [id number] 09:04:00* Test Item Value Reference Range Interpretation Comments PROTHROMBIN TIME PATIENT (test code = PTP) 12.0 seconds 9.0-14.0 N INTERNATIONAL NORMAL RATIO (test code = INR) 1.0 0.8-1.2 N The therapeutic range for oral anticoagulant therapy formost indications is an international normalized ratio (INR)of between 2.0 and 3.0. The recommended therapeutic INRrange for various clinical situations is listed below: Clinical Situation INR range Pulmonary e mbolism treatment (2.0-3.0)Venous thrombosis treatmentVenous thrombosis prophylaxis (high risk surgery)Prevention of systemic embolism from: Acute myocardial infarction Valvular heart disease Atrial fibrillation Mechanical prosthetic heart valves (2.5-3.5) IS PATIENT ON ANTICOAGULANTS? NTHROMBOPLASTIN TIME [id number] 09:04:00* Test Item Value Reference Range Interpretation Comments THROMBOPLASTIN TIME PARTIAL (test code = PTT) 31.4 seconds 25.0-36. 5 N IS PATIENT ON ANTICOAGULANTS? NBASIC METABOLIC [id number] 09:04:00* Test Item Value Reference Range Interpretation Comments SODIUM (test code = NA) 140 mmol/L 136-145 N POTASSIUM (test code = K) 3.7 mmol/L 3.5-5.1 N CHLORIDE (test code = CL) 106.0 mmol/L 98-107 N CARBON DIOXIDE (test code = CO2) mmol/L 21-32 ANION GAP (test code = GAP) 10-20 GLUCOSE (test code = GLU) mg/dL 74-106 BLOOD UREA NITROGEN (test code = BUN) mg/dL 7-18 GLOMERULAR FILTRATION RATE (test code = GFR) mL/min >=60 CREATININE (test code = CREAT) mg/dL 0.7-1.3 BUN/CREATININE RATIO (test code = BUN/CREA) 10-20 CALCIUM (test code = CA) mg/dL 8.5-10.1 [id number] 09:04:00* Test Item Value Reference Range Interpretation Comments MAGNESIUM (test code = MAG) mg/dL 1.8-2.4 [id number] 09:04:00* Test Item Value Reference Range Interpretation Comments TROPONIN-I (test code = TROPI) ng/mL 0-0.045 - XR CHEST 1 [id number] 09:02:00 FAX: Alivia Reddy DO [place]: St: DIS Name: WAYNE GAITAN [facility] : [birth year] Age/S: 89/M [address] [facility] Unit #: [id number] Loc: V.5013 [place] [address] Phys: Alivia Reddy DO Acct: [id number] Dis Date: [id number] Status: DIS IN PHONE #: [phone] Exam Date: 08/20/2019 0853 FAX #: [phone] Reason: CHEST PAIN EXAMS: CPT CODE: [id number] XR CHEST 1 V 61859 HISTORY: CHEST PAIN TECHNIQUE: AP chest x-ray COMPARISON: None FINDINGS: No airspace consolidation or pleural effusion. Mild cardiomegaly. Tortuous thoracic aorta with vascular calcification. Thoracic spond ylosis. IMPRESSION: No radiographic ev idence of acute cardiopulmonary process. L OCATION: LP Electronically Signed by Saumya Tirado D.O. on at 0902 Reported and signed by: Saumya Tirado D.O. CC: Alivia Reddy chnologist: Donna Thomas RT(R) Trnscrd Date/ Time/By: 08/20/2019 (901) : By: [email or web address] Orig Print D/T: S: 08/20/19 20 (904) PAGE 1 Signed Report - XR CHEST 1 [id number] 09:02:00 FAX: Alivia Reddy DO [place]: B St: REG Name: WAYNE GAITAN [facility] : [birth year] Age/S: 89/M [address] Unit #: [id number] [place]: [place] [address] Phys: Alivia Reddy DO Acct: [id number] Dis Date: Status: REG ER PHONE #: [phone] Exam Date: 08/20/2019 08 FAX #: [phone] Reason: CHEST PAIN EXAMS: CPT CODE: [id number] XR CHEST 1 V 95934 HISTORY: CHEST PAIN TECHNIQUE: AP chest x-ray COMPARISON: None FINDINGS: No airspace consolidation or pleural effusion. Mild cardiomegaly. Tortuous thoracic aorta with vascular calcification. Thoracic spond ylosis. IMPRESSION: No radiographic ev idence of acute cardiopulmonary process. L OCATION: LP Electronically Signed by Saumya Tirado D.O. on at 0902 Reported and signed by: Saumya Tirado D.O. CC: Alivia Reddy DO Te chnologist: Donna Thomas RT(R) Trnscrd Date/ Time/By: 08/20/2019 (901) : By: [email or web address] Orig Print D/T: S: 08/20/19 20 (904) PAGE 1 Signed Report CBC W/O [id number] 09:00:00* Test Item Value Reference Range Interpretation Comments WHITE BLOOD CELL (test code = WBC) 4.5 K/mm3 4.5-12.5 N RED BLOOD CELL (test code = RBC) 4.07 mill/mm3 4.0-5.8 N HEMOGLOBIN (test code = HGB) 13.3 gram/dL 13.0-17.5 N HEMATOCRIT (test code = HCT) 39.5 % 42.0-52.0 L MEAN CELL VOLUME (test code = MCV) 97.1 fL 80-98 N MEAN CELL HGB (test code = MCH) 32.7 picogram 27.0-33.0 N MEAN CELL HGB CONCETRATION (test code = MCHC) 33.7 gram/dL 33.0-36. 0 N RED CELL DISTRIBUTION WIDTH (test code = RDW) 12.2 % 11.6-16. 2 N PLATELET COUNT (test code = PLT) 220 K/mm3 150-450 N MEAN PLATELET VOLUME (test code = MPV) 11.1 fL 6.7-11.0 H MODIFIED BA. [id number] 12:35:00 [place] [address] Patient Name: WAYNE MCCARTNEY MR #: [id number] : 1930 Age/Sex: 88/M Req #: [id number] Adm Physician: Ordered by: ANKIT JACOBSEN Report #: [id number] Location: DX Room/Bed: Procedure: [id number] DX /MODIFIED BA. SWALLOW Exam Date: 03/15/19 Exam Time: 1015 REPORT STATUS: Signed PROC EDURE: X-RAY MODIFIED BARIUM SWALLOW COMPARISON: Modified barium swallow of 02/10/2019. INDICATION: Dysphasia Radiation Details: Fluoroscopy eliecer e: 1.8 minutes Cumulative dose: 6.1 mGy DISCUSSION: Fluoroscopic examinat ion was performed in conjunction with speech pathology during swallowing a haim iety of thin and thick liquid consistencies. Provided images demonstrate one e pisode of laryngeal penetration and no aspiration. CONCLUSION[facility] demonstrating one episode of laryngeal penetration and no as piration. Please refer to the speech pathology report for further details. Signed by: Hung Talley MD on 03/20/2019 12:38 PM Dictated By: HUNG Burrows 1238 Transcribed By: JOI CADET on 03/20/191237 COPY TO: ANKIT JACOBSEN BA. [id number] 08:45:00 [place] [address] Patient Name: WAYNE MCCARTNEY MR #: [id number] : 1930 Age/Sex: 88/M Req #: [id number] Adm Physician: Ordered by: ANKIT JACOBSEN Report #: [id number] Location: DX Room/Bed: Procedure: [id number] DX/M ODIFIED BA. SWALLOW Exam Date: 02/10/19 Exam Time: 1 130 REPORT STATUS: Signed PROCED URE: X-RAY MODIFIED BARIUM SWALLOW COMPARISON: None. INDICATION: Aspi ration Radiation Details: Fluoroscopy time: 1.7 minutes Cumulative dose : 5.4 mGy DISCUSSION: Fluoroscopic examination was performed in conjunction with speech pathology during swallowing a variety of thin and thick liquid co nsistencies. Provided images demonstrate laryngeal penetration and silent aspi ration. CONCLUSION: Modified barium swallow demonstrating laryngeal pen etration and silent aspiration. Please refer to the speech pathology report fo r further details. Signed by: Hung Talley MD on 02/13/2019 8:45 AM Di ctated By: HUNG TALLEY MD 45 Transcribed By: ELAYNE on 02/13/1945 COPY TO: ANKIT JACOBSEN BA. [id number] 13:40:00 [facility] [address] [place] [address] Patient Name: WAYNE MCCARTNEY MR #: [id number] : 1930 Age/Sex: 88/M Req #: [id number] Adm Physician: Ordered by: STARR BANUELOS MD Report #: [id number] Location: DX Room/Bed: Procedure: [id number] DX/MODIFIED BA. SWALLOW Exam Date: 01/03/19 Exam T boubacar: 1800 REPORT STATUS: Signed PROCEDURE: X-RAY MODIFIED BARIUM SWALLOW COMPARISON: None. INDIC ATIONS: Not provided. Fluoroscopy time: 1.9 minutes DAP: 1.43 Gycm2 DISCUSSION: Fluoroscopic examination was performed in conjunction with speech pathology, during swallowing of a variety of thin and thick liquid co nsistencies. CONCLUSION: Laryngeal penetration with thin liquid administration. Trace silent aspiration of thin liquids with cup and straw si ps. Please see the report from speech pathology for complete details. Dictated by: Elpidio Timmons M.D. on 01/04/2019 at 13:40 Electronically ap proved by: Elpidio Timmons M.D. on 01/04/2019 at 13:40 Dictated By: Stormy TIMMONS MD 1340 Tr anscribed By: PHIL on 01/04/19 1340 COPY TO: STARR BANUELOS MD CHEM [id number] 16:05[facility] [id number] 16:05:0087[facility]
--- OUTSIDE RECORDS SUMMARY | 2020-02-02 18:29 | XMS REPORT | Continuity of Care Document ---
Author Author Jered Waggoner [employer] Ginger[employer] Address Unknown Phone Unavailable Care Team Providers Care Real Estate Photographer Name Role Phone [employer] Yidio Unavailable Un available Problems Problem Status Onset Date Classification Date Reported Comments Source RIGHT KNEE AND BALANCE Active 08/04/2016 [facility] Christopher RT KNEE AND BALANCE [facility] AN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, 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 [facility] [place] Active 07/05/2000 [facility] AORTIC AN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, WIT Active [facility] Medications No Data Provided for This Section Allergies, Adverse Reactions, Alerts No Known Medication Allergies Immunizations No Data Provided for This Section Results Order Name Results Value Reference Range Date Interpretation Comments Source CHEM PANEL POC Creatinine 0.7 0.5 - 1.4 11/11/2015 [facility] CHEM PANEL eGFR 87 11/11/2015 Result Comment: The eGFR is calculated using the CKD-EPI formula. In most young, healthy individuals the eGFR will be >90 mL/min/1.73m2. The eGFR declines with age. An eGFR of 60-89 may be normal in some populations, particularly the elderly, for whom the CKD-EPI formula has not been extensively validated. Use of the eGFR is not recommended in the following populations:

Individuals with unstable creatinine concentrations, including patients and those with serious co-morbid conditions.

Patients with extremes in muscle mass or diet.

The data above are obtained from the National Kidney Disease Education Program (NKDEP) which additionally recommends that when the eGFR is used in patients with extremes of body mass index for purposes of drug dosing, the eGFR should be multiplied by the estimated BMI. [facility] Pathology Reports No Data Provided for This Section Diagnostic Reports Report Value Date Source Chest/Abdomen CTA EXAM: CTA CH EST WITH AND WITHOUT CONTRAST EXAM: CTA ABDOMEN WITH AND WITHOUT CONTRAST DATE: 11/11/2015 10:21 AM CDT INDICATION: AORTIC AN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, WITHOUT RUPTURE ADDITIONAL INFORMATION: None. COMPARISON: None. TECHNIQUE: Volumetric CT acquisition of the chest and abdomen during precontrast, arterial and venous phases. Axial, coronal and sagittal reconstructions. MIP reformats are created at the acquisition workstation. FINDINGS: Aorta and proximal branches: There is no evidence of intramural or periaortic hematoma. The innominate, proximal subclavian, and common carotid arteries are normal in branching order and size. The celiac trunk, SMA, and CITLALY are patent. Single renal arteries are present bilaterally both of which are patent. The infrarenal abdominal aorta is within normal limits. The visualized iliac vessels contains scattered calcifications. The aorta contains extensive atherosclerotic plaque, and measures: 4.8 x 5 cm at the ascending aorta at the level of the pulmonary artery, 3.6 cm at the mid arch, 2.7 cm at the descending aorta at the le haider of the main pulmonary artery, 2.9 cm at the level of the aortic hiatus , 1.8 cm at the level of the renal arterie s 1.9 cm just proximal to the iliac bifurc ation Right pelvis: 1.3 cm at the mid right common iliac Left pelvis: 1.2 cm at the mid left common iliac Lines/tubes: None. Heart and mediastinum: There are small left thyroid hypodensities measuring up to 7 mm. No mediastinal, hilar or axillary lymphadenopathy is seen. The heart and pericardium are within normal limits. There are mild aortic root and coronary artery calcifications. Pleura: There is thickening and calcification along the pleura of the right posterior chest. No pleural effusion. Lungs and Airways: The lungs and airways are normal with no focal abnormality demonstrated. ABDOMEN/PELVIS: Hepatobiliary: A 2.3 cm hepatic hypodensity is likely a cyst. No biliary ductal dilatation. Spleen: No splenomegaly. Pancreas: No focal masses or ductal dilatation. Adrenals: No adrenal nodules. Kidneys/Ureters: No hydronephrosis, stones, or solid mass lesions. Peritoneum/Retroperitoneum: No free air or fluid. Lymph nodes: No lymphadenopathy. Vessels: Unremarkable. Patent main portal vein measuring up to 1.3 cm. Gastrointestinal Tract: No distention. BONES AND SOFT TISSUE: Unremarkable. IMPRESSION: 1. Ascending aortic aneurysm measuring up to 5 cm without dissection. 2. Moderate atherosclerotic disease of the aorta. 11/11/2015 [facility] Consultation Notes No Data Provided for This Section Discharge Summaries No Data Provided for This Section History and Physicals No Data Provided for This Section Vital Signs No Data Provided for This Section Encounters Location Location Details Encounter Type Encounter Number Reason For Visit Attending Provider ADM Date DC Date Status Source [facility] Outpatient [id number] Yareli Barker 11/11/2015 11/12/2015 [facility] OP Therapy Patients [id number] Mil Brito 08/17/2016 09/16/2016 [facility] [id number] [place] 09/01/2016 10/01/2016 [facility] OP Therapy Patients [id number] Mil Brito 09/17/2016 10/17/2016 [facility] Therapy [id number] [place] 10/01/2016 10/31/2016 [facility] OP Therapy Patients [id number] Mil Brito 10/20/2016 11/19/2016 [facility] Outpatient [id number] NURSE VISIT 08/07/2019 Active [facility] Urology [facility] Ambulatory Pre-Reg [id number] NURSE VISIT 08/07/2019 08/07/2019 [facility] Urology [facility] Phone Message [id number] 08/18/19 20 08/20/2019 [facility] Procedures No Data Provided for This Section Assessment and Plan No Data Provided for This Section Plan of Care No Data Provided for This Section Social History Social History Date Source No data available for this section 08/20/2019 [facility] No data available for this section 11/19/2016 [facility] No data available for this section 10/31/2016 [facility] No data available for this section 11/12/2015 [facility] Family History No Data Provided for This Section Advance Directives No Data Provided for This Section Functional Status No Data Provided for This Section
--- OUTSIDE RECORDS SUMMARY | 2020-02-02 18:30 | XMS REPORT | Continuity of Care Document ---
Author Author Jered Waggoner [employer] Address Unknown Phone Unavailable Care Team Providers Care Cement Tester Assistant Name Role Phone [employer] Information [place] Unavailable Un available Problems Problem Status Onset Date Classification Date Reported Comments Source RIGHT KNEE AND BALANCE Active 08/04/2016 [facility] [place] RT KNEE AND BALANCE [facility] AN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, 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 [facility] [place] Active 07/05/2000 [facility] AORTIC AN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, WIT Active [facility] Medications No Data Provided for This Section Allergies, Adverse Reactions, Alerts No Known Medication Allergies Immunizations No Data Provided for This Section Results Order Name Results Value Reference Range Date Interpretation Comments Source CHEM PANEL POC Creatinine 0.7 0.5 - 1.4 11/11/2015 [facility] CHEM PANEL eGFR 87 11/11/2015 Result Comment: [...] should be multiplied by the estimated BMI. [facility] Pathology Reports No Data Provided for This [...] Moderate atherosclerotic disease of the aorta. 11/11/2015 [facility] Consultation Notes No Data Provided for This Section Discharge Summaries No Data Provided for This Section History and Physicals No Data Provided for This Section Vital Signs No Data Provided for This Section Encounters Location Location Details Encounter Type Encounter Number Reason For Visit Attending Provider ADM Date DC Date Status Source [facility] Out[facility] [id number] Yareli Barker 11/11/2015 11/12/2015 [facility] [place] OP Therapy Patients [id number] Mil Brito 08/17/2016 09/16/2016 [facility] [place] [facility] [id number] [place] 09/01/2016 10/01/2016 [facility] [place] OP Therapy Patients [id number] Mil Brito 09/17/2016 10/17/2016 [facility] [place] [facility] Tots Therapy [id number] [place] 10/01/2016 10/31/2016 [facility] [place] OP Therapy Patients [id number] Mil Brito 10/20/2016 11/19/2016 [facility] [place] Outpatient [id number] NURSE VISIT 08/07/2019 Active [facility] Urology [facility] Ambulatory Pre-Reg [id number] NURSE VISIT 08/07/2019 08/07/2019 [facility] U[facility] Phone Message [id number] 08/18/19 20 08/20/2019 [facility] Procedures No Data Provided for This Section Assessment and Plan No Data Provided for This Section Plan of Care No Data Provided for This Section Social History Social History Date Source No data available for this section 08/20/2019 [facility] No data available for this section 11/19/2016 [facility] [place] No data available for this section 10/31/2016 [facility] No data available for this section 11/12/2015 [facility] Family History No Data Provided for This Section Advance Directives No Data Provided for This Section Functional Status No Data Provided for This Section
--- OUTSIDE RECORDS SUMMARY | 2020-02-02 18:31 | XMS REPORT | Continuity of Care Document ---
Author Author [facility] Organization [facility] Address [address] [place] [address] Phone Unavailable Care Team Providers Care Lab Aid Name Role Phone Marc JACOBSEN PCP JOSÉ MIGUEL CADET Attphys Unavailable Marc JACOBSEN Attphys Unavailable SAHIL CADET Attphys Unavailable Jeannette HUYNH, Tyrell Attphys VISIT, [facility] NURSE Attphys Unavailable STARR BANUELOS Attphys Unavailable Amira Moise Attphys [place] Attphys Lars Barker Attphys JOSÉ MIGUEL CADET Admphys Unavailable Payers Payer Name Policy Type Policy Number Effective Date Expiration Date Christa carroll [facility] Care [id number] 2011 00:00:00 C [facility] Medicare A & B [id number] 1996 00:00:00 C [facility] Problems Condition Name Condition Details Condition Category Status Onset Date Resolution Date Last Treatment Date Treating Clinician Comments Source RIGHT KNEE AND BALANCE RIG T KNEE AND BALANCE Active 08/04/2016 [facility] [place] Diagnosis Active 2016-08-04 08:00:00 2016-10-20 11:52:00 [facility] RT KNEE AND BALANCE RT K NEE AND BALANCE Active 07/17/2016 [facility] [place] Diagnosis Active 2016-07-17 08:00:00 2016-09-17 14:55:0 0 [facility] AORTIC AN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, WIT AORTIC AN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, 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 [facility] Diagnosis Active 2015-10-11 00:00:00 2015-11-11 10:03:00 [facility] [place] [place] [place] Active 07/05/2000 [facility] Diagnosis Active 2000-07-05 08:00:00 2016-10-01 15:44:00 [facility] Problem Condition Active [facility] Allergies, Adverse Reactions, Alerts Allergy Name Allergy Type Status Severity Reaction(s) Onset Date Inacti ve Date Treating Clinician Comments Source No Known Allergies DA Active U 2019-08-20 00:00:00 [facility] Social History Social Habit Start Date Stop Date Quantity Comments Source Social History 2015-11-12 04:59:00 2015-11-12 04:59:00 [facility] Sex Assigned At 1930 00:00:00 1930 00:00:00 Male [facility] Medications This patient has no known medications. Procedures This patient has no known procedures. Plan of Care Planned Activity Planned Date Details Comments Source Instructions Fall Prevention [facility] Encounters Start Date/Time End Date/Time Encounter Type Admission Type Attendi [facility] Care Department Encounter ID Source 2020-01-16 20:00:00 2020-01-16 20:00:00 Registered Emergency Room SAHIL CADET [facility] [id number] [facility] 2020-01-04 10:51:08 2020-01-04 13:54:57 Office Visit Tyrell Collier [facility] [id number] 2019-08-18 15:53:01 2019-08-19 23:59:59 Outpatient [facility] [id number] 2019-08-07 08:30:00 2019-08-07 08:30:00 [facility] [id number] 2019-03-13 09:53:00 2019-04-03 23:59:00 Discharged Recurring [facility] [id number] [facility] 2019-03-15 09:29:00 2019-03-15 09:29:00 Registered Clinic 3 ANKIT JACOBESN [facility] [id number] [facility] 2019-02-03 10:08:00 2019-03-04 23:59:00 Discharged Recurring [facility] [id number] [facility] 2019-02-10 10:09:00 2019-02-10 10:09:00 Registered Clinic 3 ANKIT JACOBSEN [facility] [id number] [facility] 2019-01-12 09:48:00 2019-02-01 23:59:00 Discharged Recurring [facility] [id number] [facility] 2019-01-03 11:32:00 2019-01-03 11:32:00 Registered Clinic 3 STARR BANUELOS [facility] [id number] [facility] 2016-10-20 11:45:00 2016-11-18 23:59:00 Outpatient Mil Moise [id number] 2016-10-01 08:00:00 2016-10-30 23:59:00 Outpatient [place] [facility] [facility] [id number] 2016-09-17 14:52:00 2016-10-16 23:59:00 Outpatient Mil Moise [id number] 2016-09-01 08:00:00 2016-09-30 23:59:00 Outpatient [place] [facility] [id number] 2016-08-17 09:30:00 2016-09-15 23:59:00 Outpatient Mil Moise [id number] 2015-11-11 09:52:00 2015-11-11 23:59:00 Outpatient Radha Barker [facility] [id number] Results Test Description Test Time Test Comments Results Result Comments Source PELVIS AP 1-2 VIEWS 2020-01-30 14:55:00 [place] [address] Patient Name: WAYNE MCCARTNEY MR #: [id number] : 1930 Age/Sex: 89/M Req #: [id number] [facility] Physician: JOSÉ MIGUEL CADET MD Ordered by: MIL MOISE MD Report #: [id number] Location: MED/SURG Room/Bed: [facility] Procedure: [id number] DX/PELVIS AP 1-2 VIEWS Exam Date: 01/30/20 Exam Time: 1430 REPORT STATUS: Signed EXAMINATION: PELVIS AP 1-2 VIEWS INDICATION: Postoperative COMPARISON: Pelvic and hip radiographs of 01/28/2020, bone scan of 01/26/2020 FINDINGS: AP view of the pelvis demonstrates postoperative findings of left proximal femur ORIF with 3 partially threaded screws. No displaced fracture. Mild degenerative changes of both mi'kmaq hip joints. Surgical skin cheikh in place. IMPRESSION: Anatomic alignment status post ORIF of the left proximal femur. Signed by: Hung Talley MD on 01/30/2020 2:57 PM Dictated By: HUNG TALLEY MD 56 Transcribed By: ELAYNE on 01/30/201456 COPY TO: MIL MOISE MD CHEST SINGLE (NOT PORTABLE) 2020-01-28 13:54:00 [place] [address] Patient Name: WAYNE MCCARTNEY MR #: [id number] : 1930 Age/Sex: 89/M Req #: [id number] Adm Physician: JOSÉ MIGUEL CADET MD Ordered by: KEITH ORLANDO MD Report #: [id number] Location: [facility] Room/Bed: [place] [address] Procedure: [id number] DX/CHEST SINGLE (NOT PORTABLE) Exam Date: 01/28/20 [...] LEFT 2-3 VW (+/- PELVIS) 2020-01-28 13:49:00 [place] [address] Patient Name: WAYNE MCCARTNEY MR #: [id number] : 1930 Age/Sex: 89/M Req #: [id number] Adm Physician: JOSÉ MIGUEL CADET MD Ordered by: KEITH ORLANDO MD Report #: [id number] Location: [facility] Room/Bed: [place] [address] Procedure: [id number] DX/HIP LEFT 2-3 VW (+/- PELVIS) Exam [...] MD CT CERVICAL SPINE WO 2020-01-28 13:46:00 [place] [address] Patient Name: WAYNE MCCARTNEY MR #: [id number] : 1930 Age/Sex: 89/M Req #: [id number] Adm Physician: JOSÉ MIGUEL CADET MD Ordered by: KEITH ORLANDO MD Report #: [id number] Location: [facility] Room/Bed: [place] [address] Procedure: [id number] CT/CT CERVICAL SPINE WO Exam Date: 01/28/20 [...] ORLANDO MD CT BRAIN WO 2020-01-28 13:39:00 [place] [address] Patient Name: WAYNE MCCARTNEY MR #: [id number] : 1930 Age/Sex: 89/M Req #: [id number] Adm Physician: JOSÉ MIGUEL CADET MD Ordered by: KEITH ORLANDO MD Report #: [id number] Location: [facility] Room/Bed: [place] [address] Procedure: [id number] CT/CT BRAIN WO Exam Date: 01/28/20 Exam [...] MD BONE SCAN, 3 PHASE 2020-01-26 17:18:00 [place] [address] Patient Name: WAYNE MCCARTNEY MR #: [id number] : 1930 Age/Sex: 89/M Req #: [id number] Adm Physician: Ordered by: ANKIT JACOBSEN Report #: [id number] Location: MD Room/Bed: Procedure: [id number] NM/BONE SCAN, 3 PHASE Exam Date: 01/26/20 [...] LEFT 2-3 VW (+/- PELVIS) 2020-01-16 21:36:00 [place] [address] Patient Name: WAYNE MCCARTNEY MR #: [id number] : 1930 Age/Sex: 89/M Req #: [id number] Adm Physician: Ordered by: SAHIL CADET DO Report #: [id number] Location: ER Room/Bed: Procedure: [id number] DX/HIP LEFT 2-3 VW (+/- PELVIS) Exam [...] FEMUR 2 VIEWS MINIMUM LEFT 2020-01-16 21:33:00 [place] [address] Patient Name: WAYNE MCCARTNEY MR #: [id number] : 1930 Age/Sex: 89/M Req #: [id number] Adm Physician: Ordered by: SAHIL CADET DO Report #: [id number] Location: ER Room/Bed: Procedure: [id number] DX/FEMUR 2 VIEWS MINIMUM LEFT Exam Date: [...] due to change in reagent. COMPREHENSIVE METABOLIC [id number] 06:18:00* Test Item Value Reference Range Interpretation [...] code = ALKP) IUnit/L 45-117 CBC W/AUTO [id number] 05:53:00* Test Item Value Reference Range Interpretation [...] NRBC#) 0.00 K/mm3 0.0-0.1 N CBC W/AUTO [id number] 05:50:00* Test Item Value Reference Range Interpretation [...] code = BA#) K/mm3 0.0-0.2 COMPREHENSIVE METABOLIC [id number] 07:27:00* Test Item Value Reference Range Interpretation [...] due to change in reagent. COMPREHENSIVE METABOLIC [id number] 07:16:00* Test Item Value Reference Range Interpretation [...] code = ALKP) IUnit/L 45-117 CBC W/AUTO [id number] 07:05:00* Test Item Value Reference Range Interpretation [...] code = NRBC#) 0.00 K/mm3 0.0-0.1 N [id number] 20:39:00* Test Item Value Reference Range Interpretation Comments GLUBED (test code = GLUBED) 113 mg/dL 74-106 H Performed by certified stem threshing machine operator at [facility] - XR CHEST 2 [id number] 13:02:00 FAX: Griselda Toure MD [phone] [place]: St: DIS FAX: Ondina Nova DO [phone] Name: WAYNE MCCARTNEY [facility] : 1930 Age/S: 89/M [address] Unit #: [id number] Loc: V.5013 [place] [address] Phys: Ondina Way DO Acct: [id number] Dis Date: [id number] Status: DIS IN PHONE #: [phone] Exam Date: 08/23/2019 1220 FAX #: [phone] Reason: S/P PPM INSERTION EXAMS: CPT CODE: [id number] XR CHEST 2 V 43551 REASON FOR EXAM: S/P PPM INSERTION Exam [...] study. IMPRESSION: No acute cardiopulmonary process. Location: [facility] at 1302 Reported and signed by: Tyson Kamara MD CC: Griselda Smith MD; Ondina Nova DO Technologist: Margo Babin RT(R) Trnscrd Date/Time/By: 08/23/2019 (4466) : By: [email or web address] Orig Print D/T: S: 08/23/2019 (0194) PAGE 1 Signed Report - XR CHEST 2 V 2019-08-23 13:02:00 FAX: Griselda Toure MD [phone] [place]: St: ADM FAX: Ondina Nova DO [phone] Name: WAYNE MCCARTNEY [facility] : 1930 Age/S: 89/M [address] Unit #: [id number] Loc: V.5013 [place] [address] Phys: Ondina Way DO Acct: [id number] Dis Date: Status: ADM IN PHONE #: [phone] Exam Date: 08/23/2019 1220 FAX #: [phone] Reason: S/P PPM INSERTION EXAMS: CPT CODE: [id number] XR CHEST 2 V 96317 REASON FOR EXAM: S/P PPM INSERTION Exam [...] study. IMPRESSION: No acute cardiopulmonary process. Location: [facility] at 1302 Reported and signed by: Tyson Kamara MD CC: Griselda Smith MD; Ondina Nova DO Technologist: Margo Babin RT(R) Trnscrd Date/Time/By: 08/23/2019 (2131) : By: [email or web address] Orig Print D/T: S: 08/23/2019 (3040) PAGE 1 Signed Report - XR CHEST 1 V 2019-08-22 13:43:00 FAX: Griselda Toure MD [phone] [place]: St: DIS FAX: RohiniOndina [phone] Name: WAYNE MCCARTNEY [facility] : 1930 Age/S: 89/M [address] Unit #: [id number] Loc: V.5013 [place] [address] Phys: Ondina Way DO Acct: [id number] Dis Date: [id number] Status: DIS IN PHONE #: [phone] Exam Date: 08/22/2019 1328 FAX #: [phone] Reason: S/P PPM INSERTION EXAMS: CPT CODE: [id number] XR CHEST 1 V 31902 REASON FOR EXAM: S/P PPM INSERTION Exam [...] lectasis in the left lung base. Location: [facility] at 1343 Reported and signed by: Tyson Kamara MD CC: Griselda Smith MD; Ondina Pop DO Technologist: Hodan Key(Jeane); STUDENT T ECHNOLOGIST Trnscrd Date/Time/By: 08/22/2019 (2057) : By: [email or web address] Orig Print D/T: S: 08/22/2019 (8194) PAGE 1 Signed Report - XR CHEST 1 V 2019-08-22 13:43:00 FAX: Griselda Toure MD [phone] [place]: B St: ADM FAX: Ondina Nova DO [phone] Name: WAYNE MCCARTNEY [facility] : 1930 Age/S: 89/M [address] Unit #: [id number] Loc: V.4032 [place] [address] Phys: Ondina Way DO Acct: [id number] Dis Date: Status: ADM IN PHONE #: [phone] Exam Date: 08/22/2019 1328 FAX #: [phone] Reason: S/P PPM INSERTION EXAMS: CPT CODE: [id number] XR CHEST 1 V 16358 REASON FOR EXAM: S/P PPM INSERTION Exam [...] lectasis in the left lung base. Location: [facility] at 1343 Reported and signed by: Tyson Kamara MD CC: Griselda Smith MD; Peg chavezOndina Birmingham DO Technologist: Hodan Key(Jeane); STUDENT T ECHNOLOGIST Trnscrd Date/Time/By: 08/22/2019 (1343) : By: [email or web address] Orig Print D/T: S: 08/22/2019 (9841) PAGE 1 Signed Report BASIC METABOLIC [id number] 05:59:00* Test Item Value Reference Range Interpretation [...] CA) 8.7 mg/dL 8.5-10.1 N BASIC METABOLIC [id number] 05:54:00* Test Item Value Reference Range Interpretation [...] code = CA) mg/dL 8.5-10.1 CBC W/AUTO [id number] 05:23:00* Test Item Value Reference Range Interpretation [...] NRBC#) 0.00 K/mm3 0.0-0.1 N BASIC METABOLIC [id number] 05:12:00* Test Item Value Reference Range Interpretation [...] CA) 8.4 mg/dL 8.5-10.1 L BASIC METABOLIC [id number] 05:11:00* Test Item Value Reference Range Interpretation [...] CA) 8.4 mg/dL 8.5-10.1 L CBC W/AUTO [id number] 04:45:00* Test Item Value Reference Range Interpretation [...] (test code = MDIFF) NO CBC W/AUTO [id number] 04:33:00* Test Item Value Reference Range Interpretation [...] # (test code = BA#) K/mm3 0.0-0.2 [id number] 09:17:00* Test Item Value Reference Range Interpretation Comments PHOSPHORUS (test code = PHOS) 3.2 mg/dL 2.5-4.9 N THYROID STIMULATING [id number] 09:17:00* Test Item Value Reference Range Interpretation Comments THYROID STIMULATING HORMONE (test code = TSH) 3.080 uIU/mL 0.36-3.7 4 N TSH REFERENCE RANGES: EUTHYROID: 0.35 - 4.3 mIU/mL HYPO : > 5.5 mIU/mL HYPER : < 0.35 mIU/mL BASIC METABOLIC [id number] 09:17:00* Test Item Value Reference Range Interpretation [...] code = CA) 8.5 mg/dL 8.5-10.1 N [id number] 09:17:00* Test Item Value Reference Range Interpretation Comments MAGNESIUM (test code = MAG) 2.2 mg/dL 1.8-2.4 N [id number] 09:17:00* Test Item Value Reference Range Interpretation Comments TROPONIN-I (test code = TROPI) <0.015 ng/mL 0-0.045 N PROTHROMBIN [id number] 09:04:00* Test Item Value Reference Range Interpretation [...] (2.5-3.5) IS PATIENT ON ANTICOAGULANTS? NTHROMBOPLASTIN TIME [id number] 09:04:00* Test Item Value Reference Range Interpretation Comments THROMBOPLASTIN TIME PARTIAL (test code = PTT) 31.4 seconds 25.0-36. 5 N IS PATIENT ON ANTICOAGULANTS? NBASIC METABOLIC [id number] 09:04:00* Test Item Value Reference Range Interpretation [...] CALCIUM (test code = CA) mg/dL 8.5-10.1 [id number] 09:04:00* Test Item Value Reference Range Interpretation Comments MAGNESIUM (test code = MAG) mg/dL 1.8-2.4 [id number] 09:04:00* Test Item Value Reference Range Interpretation Comments TROPONIN-I (test code = TROPI) ng/mL 0-0.045 - XR CHEST 1 [id number] 09:02:00 FAX: Alivia Reddy DO [place]: St: DIS Name: WAYNE GAITAN [facility] : [birth year] Age/S: 89/M [address] [facility] Unit #: [id number] Loc: V.5013 [place] [address] Phys: Alivia Reddy DO Acct: [id number] Dis Date: [id number] Status: DIS IN PHONE #: [phone] Exam Date: 08/20/2019 0853 FAX #: [phone] Reason: CHEST PAIN EXAMS: CPT CODE: [id number] XR CHEST 1 V 63626 HISTORY: CHEST PAIN TECHNIQUE: AP chest x-ray [...] 1 Signed Report - XR CHEST 1 [id number] 09:02:00 FAX: Alivia Reddy DO [place]: B St: REG Name: WAYNE GAITAN [facility] : [birth year] Age/S: 89/M [address] Unit #: [id number] Loc: [place] [address] Phys: Alivia Reddy DO Acct: [id number] Dis Date: Status: REG ER PHONE #: [phone] Exam Date: 08/20/2019 08 FAX #: [phone] Reason: CHEST PAIN EXAMS: CPT CODE: [id number] XR CHEST 1 V 41598 HISTORY: CHEST PAIN TECHNIQUE: AP chest x-ray [...] (904) PAGE 1 Signed Report CBC W/O [id number] 09:00:00* Test Item Value Reference Range Interpretation [...] MPV) 11.1 fL 6.7-11.0 H MODIFIED BA. [id number] 12:35:00 [place] [address] Patient Name: WAYNE MCCARTNEY MR #: [id number] : 1930 Age/Sex: 88/M Req #: [id number] Adm Physician: Ordered by: ANKIT JACOBSEN Report #: [id number] Location: DX Room/Bed: Procedure: [id number] DX /MODIFIED BA. SWALLOW Exam Date: 03/15/19 [...] of laryngeal penetration and no aspiration. [facility] demonstrating one episode of laryngeal penetration and no as piration. Please refer to the speech pathology report for further details. Signed by: Hung Talley MD on 03/20/2019 12:38 PM Dictated By: HUNG Burrows 1238 Transcribed By: JOI CADET on 03/20/191237 COPY TO: ANKIT JACOBSEN BA. [id number] 08:45:00 [place] [address] Patient Name: WAYNE MCCARTNEY MR #: [id number] : 1930 Age/Sex: 88/M Req #: [id number] Adm Physician: Ordered by: ANKIT JACOBSEN Report #: [id number] Location: DX Room/Bed: Procedure: [id number] DX/M ODIFIED BA. SWALLOW Exam Date: 02/10/19 [...] on 02/13/1945 COPY TO: ANKIT JACOBSEN BA. [id number] 13:40:00 [facility] [address] [place] [address] Patient Name: WAYNE MCCARTNEY MR #: [id number] : 1930 Age/Sex: 88/M Req #: [id number] Adm Physician: Ordered by: STARR BANUELOS MD Report #: [id number] Location: DX Room/Bed: Procedure: [id number] DX/MODIFIED BA. SWALLOW Exam Date: 01/03/19 Exam T obubacar: 1800 REPORT STATUS: Signed PROCEDURE: X-RAY MODIFIED [...] 1340 COPY TO: STARR BANUELOS MD CHEM [id number] [facility] [id number] 16:05:[facility]
--- NOTE | 2020-02-02 19:10 | NUR ---
RECEIVED BEDSIDE SHIFT REPORT FROM PREVIOUS NURSE. CALL LIGHT WITHIN REACH. PATIENT IN BED. PATIENT'S AT BEDSIDE
[2020-02-02 20:15] VITALS: BP 115/84
[2020-02-02] MEDS: DONEPEZIL HCL 5 MG TAB PO SCH (20:25)
[2020-02-02] MEDS: TAMSULOSIN HCL 0.4 MG CAP PO SCH (20:25)
[2020-02-03 00:45] VITALS: BP 114/85
[2020-02-03 04:25] VITALS: BP 135/84
[2020-02-03] MEDS: CARBIDOPA/LEVODOPA 25/100 TAB PO SCH ×4 (06:40→21:17)
--- NOTE | 2020-02-03 07:11 | NUR ---
GAVE BEDSIDE SHIFT REPORT TO ONCOMING NURSE. CALL LIGHT WITHIN REACH. PATIENT ASLEEP IN BED. HOURLY ROUNDING PERFORMED.
[2020-02-03] MEDS: SENNA-S TABLET PO SCH ×2 (08:25→17:43)
[2020-02-03] MEDS: POLYETHYLENE GLYCOL 3350 17 GM PACK PO SCH (08:25)
[2020-02-03] MEDS: METOPROLOL TARTRATE 50 MG TAB PO SCH ×3 (08:26→17:43)
[2020-02-03] MEDS: FUROSEMIDE 40 MG TAB PO SCH ×2 (08:27→15:26)
[2020-02-03] MEDS: POTASSIUM CHLORIDE 10MEQ EA PO SCH (08:27)
[2020-02-03] MEDS: OLOPATADINE 5 ML BTL OP SCH ×2 (08:27→21:17)
[2020-02-03 08:40] VITALS: BP 95/62
--- NOTE | 2020-02-03 10:26 | NUR ---
RECEIVED A VISIT FROM THE BEDSIDE RN / MADDY REGARDING FAMILY APPEAL W RASHMI'S DENIAL FOR INPT REHAB. PT'S WOULD LIKE TO SPEAK W CM. CALL WAS MADE TO THE PT'S ROOM TO DISCUSS CONCERNS ABOUT THEIR APPEAL TO [employer]. THE STATES SHE JUST WANTED TO BE PREPARED FOR [employer]'S DETERMINATION TODAY AND KNOW WHAT SHE COULD DO AFTER THE APPEAL. WE DISCUSSED THE PROCESS AFTER A DETERMINATION IS GIVEN BY RASHMI. MS. MCCARTNEY HAD QUESTIONS ABOUT THE IMM AND SAFE DISCHARGE. DISCUSSED WHAT SAFE DC ENTAILED AND WHAT HAPPENS IF SHE DOES APPEAL HER HOSPITAL STAY. STATES SHE WILL GO TO MED RESORT IF SHE IS DENIED, BUT MAY TRY APPEALING TO THE PT'S INSURANCE AGAIN. DISCUSSED WHAT WHAT HAPPENS AFTER DC'ING FROM REHAB OR SNF IF THE PT DOES NOT PROGRESS W HIS ADL'S. STATES SHE HAS BEEN DEALING W THE PT'S PARKINSON'S FOR 16YRS. STATES HER SISTER IN LAW SPOKE W HER ABOUT HOSPICE AND GAVE HER QUESTIONS TO ASK WHEN THE TIME WAS APPROPRIATE. REVIEWED THE QUESTIONS W THE AND ENCOURAGED HER TO KEEP THE QUESTION FOR WHEN THE TIME WAS RIGHT. ENCOURAGED HER TO BEGIN LOOKING ONLINE AT HOSPICES AND WHAT THEY COULD OFFER HER THAT WOULD MEET HER NEEDS. VERBALIZED UNDERSTANDING. WE AGREED WE WOULD WAIT TO HEAR FROM HUMANNarciso TODAY AND WILL PROCEED NECESSARY.
[2020-02-03] MEDS: MULTIVITAMINS/MINERALS TAB PO SCH (15:26)
[2020-02-03] MEDS: ASCORBIC ACID 500 MG TAB PO SCH ×2 (15:26→17:43)
[2020-02-03] MEDS: TOBRAMYCIN 0.3% (OPTH) 5 ML BTL OP SCH ×2 (15:26→17:43)
[2020-02-03] MEDS: MAGNESIUM OXIDE 400 MG TAB PO SCH ×2 (15:26→17:42)
[2020-02-03] MEDS: NYSTATIN SUSPENSION 5 ML UDC PO SCH ×2 (15:26→17:43)
[2020-02-03] MEDS: CLINDAMYCIN HCL 150 MG CAP PO SCH ×2 (15:26→21:17)
[2020-02-03 17:13] VITALS: BP 120/77
[2020-02-03] MEDS: RIVAROXABAN 10 MG TABLET PO SCH (17:43)
--- NOTE | 2020-02-03 19:20 | NUR ---
RECEIVED REPORT FROM PREVIOUS NURSE. CALL LIGHT WITHIN REACH. PATIENT IN BED
--- NOTE | 2020-02-03 19:50 | NUR ---
Nutrition LOS Note RD Recommendation for Physician: - Continue diet and supplements as ordered Plan of Care: RD following, monitoring for tolerance and adequacy Nutrition reason for involvement: LOS Primary Diagnose(s): left femoral neck fracture PMH: Hypertension, congestive heart failure, permanent pacemaker placed approximately a month ago, Parkinson disease, osteoarthritis, enlarged prostate Ht: 69in Wt: 171# BMI: 25.3kg/m2 IBW: 160# RD Assessment: Chart reviewed. Labs and meds reviewed. 89yo M, who was admitted for right femoral neck fracture. Visited pt in the room. Pt was well asleep. Per RN, pt was eating well. PCT recorded 75-100% meal intake for the last few days. LBM 02/01. No GI related complains noted. Will continue to monitor and follow. Current Diet: Cardiac/ pureed diet, Ensure TID Malnutrition Evaluation (02/02) The patient does not meet criteria for a specified degree of malnutrition at this time. Will re-evaluate at follow-up as appropriate. Diet Education Needs Assessment: Diet education not indicated. Nutrition Care Level: low Signed: Angela Murrieta, , RD, LD
[2020-02-03 20:00] VITALS: BP 124/81
[2020-02-03 20:04] VITALS: BP 124/81
[2020-02-03] MEDS: TAMSULOSIN HCL 0.4 MG CAP PO SCH (21:17)
[2020-02-03] MEDS: DONEPEZIL HCL 5 MG TAB PO SCH (21:17)
[2020-02-04] VITALS (8 sets, daily range): BP systolic 110–129; BP diastolic 70–92
[2020-02-04 06:16] LABS: BASOPHILS % 0.6 % (0.0-1.0); EOSINOPHILS # (AUTO) 0.1 (0.0-0.4); EOSINOPHILS % 1.8 % (0.0-6.0); HEMATOCRIT 39.9 % (38.2-49.6); HEMOGLOBIN 13.4 g/dL (14.0-18.0); LYMPHOCYTES % 15.3 % (18.0-39.1); MEAN CORPUSCULAR HEMOGLOBIN 32.8 pg (28-32); MEAN CORPUSCULAR HGB CONC 33.6 g/dL (31-35); MEAN CORPUSCULAR VOLUME 97.6 fL (81-99); MONOCYTES # (AUTO) 0.8 (0.2-0.8); MONOCYTES % 11.7 % (4.4-11.3); NEUTROPHILS # (AUTO) 4.7 (2.1-6.9); PLATELET COUNT 285 x10e3/uL (140-360); RED BLOOD COUNT 4.09 x10e6/uL (4.3-5.7); RED CELL DISTRIBUTION WIDTH 12.6 % (11.7-14.4)
[2020-02-04] MEDS: NYSTATIN SUSPENSION 5 ML UDC PO SCH ×5 (06:29→23:56)
[2020-02-04] MEDS: CARBIDOPA/LEVODOPA 25/100 TAB PO SCH ×4 (06:29→21:32)
[2020-02-04] MEDS: CLINDAMYCIN HCL 150 MG CAP PO SCH ×3 (06:29→21:32)
[2020-02-04 06:45] LABS: BLOOD UREA NITROGEN 16 mg/dL (7-26); BUN/CREATININE RATIO 23 (6-25); CALCIUM 8.6 mg/dL (8.4-10.2); CARBON DIOXIDE 27 mmol/L (22-29); CHLORIDE 101 mmol/L (98-107); EST GLOMERULAR FILTRATION RATE > 60 ML/MIN (60-); GLUCOSE 96 mg/dL (74-118); SODIUM 137 mmol/L (136-145)
--- NOTE | 2020-02-04 06:59 | NUR ---
GAVE BEDSIDE SHIFT REPORT TO ONCOMING NURSE. CALL LIGHT WITHIN REACH. PATIENT IN BED. HOURLY ROUNDING PERFORMED.
[2020-02-04] MEDS: MAGNESIUM OXIDE 400 MG TAB PO SCH ×2 (07:58→17:30)
[2020-02-04] MEDS: METOPROLOL TARTRATE 50 MG TAB PO SCH ×2 (07:58→17:30)
[2020-02-04] MEDS: POTASSIUM CHLORIDE 10MEQ EA PO SCH (07:58)
[2020-02-04] MEDS: SENNA-S TABLET PO SCH ×2 (07:59→17:30)
[2020-02-04] MEDS: ASCORBIC ACID 500 MG TAB PO SCH ×2 (07:59→17:31)
[2020-02-04] MEDS: FUROSEMIDE 40 MG TAB PO SCH ×2 (07:59→14:17)
[2020-02-04] MEDS: MULTIVITAMINS/MINERALS TAB PO SCH (07:59)
[2020-02-04] MEDS: POLYETHYLENE GLYCOL 3350 17 GM PACK PO SCH (08:02)
[2020-02-04] MEDS: TOBRAMYCIN 0.3% (OPTH) 5 ML BTL OP SCH ×2 (08:02→17:30)
[2020-02-04] MEDS: OLOPATADINE 5 ML BTL OP SCH ×2 (08:02→21:32)
[2020-02-04] MEDS: RIVAROXABAN 10 MG TABLET PO SCH (17:31)
--- NOTE | 2020-02-04 19:10 | NUR ---
RECEIVED REPORT FROM PREVIOUS NURSE. CALL LIGHT WITHIN REACH. PATIENT IN BED. IS AT THE BEDSIDE
[2020-02-04] MEDS: TAMSULOSIN HCL 0.4 MG CAP PO SCH (21:32)
[2020-02-04] MEDS: DONEPEZIL HCL 5 MG TAB PO SCH (21:32)
[2020-02-05] VITALS: BP 116/72
[2020-02-05 04:00] VITALS: BP 125/84
[2020-02-05] MEDS: CARBIDOPA/LEVODOPA 25/100 TAB PO SCH ×2 (05:54→13:01)
[2020-02-05] MEDS: CLINDAMYCIN HCL 150 MG CAP PO SCH (05:54)
[2020-02-05] MEDS: NYSTATIN SUSPENSION 5 ML UDC PO SCH ×2 (05:54→11:27)
--- NOTE | 2020-02-05 07:46 | NUR ---
FAXED CLINICALS TO [facility]
--- NOTE | 2020-02-05 07:46 | NUR ---
GAVE BEDSIDE SHIFT REPORT TO ONCOMING NURSE. CALL LIGHT WITHIN REACH. PATIENT IN BED.
[2020-02-05 07:56] VITALS: BP 114/83
[2020-02-05] MEDS: POTASSIUM CHLORIDE 10MEQ EA PO SCH (08:55)
[2020-02-05] MEDS: FUROSEMIDE 40 MG TAB PO SCH ×2 (08:55→13:01)
[2020-02-05] MEDS: MAGNESIUM OXIDE 400 MG TAB PO SCH (08:56)
[2020-02-05] MEDS: MULTIVITAMINS/MINERALS TAB PO SCH (08:56)
[2020-02-05] MEDS: METOPROLOL TARTRATE 50 MG TAB PO SCH (08:56)
[2020-02-05] MEDS: POLYETHYLENE GLYCOL 3350 17 GM PACK PO SCH (08:56)
[2020-02-05] MEDS: SENNA-S TABLET PO SCH (08:57)
[2020-02-05] MEDS: ASCORBIC ACID 500 MG TAB PO SCH (08:57)
[2020-02-05] MEDS: TOBRAMYCIN 0.3% (OPTH) 5 ML BTL OP SCH (08:58)
[2020-02-05] MEDS: OLOPATADINE 5 ML BTL OP SCH (08:58)
[2020-02-05 09:51] VITALS: BP 114/83
--- NOTE | 2020-02-05 10:25 | NUR ---
[facility] FACILITY DISCHARGE INFORMATION PATIENT HAS BEEN ACCEPTED TO: NAME: [facility] ADDRESS: [id number] [facility] ACCEPTING PRODUCTION FINISHER: MAKI MANZO MD: TYLER ROOM: 104 NURSE CALL REPORT TO: [phone] IMM SIGNED AND OBTAINED (if applicable): IMM THE FOLLOWING DOCUMENTS MUST ACCOMPANY PATIENT FOR TRANSFER: COPIED CHART: PACKET
[2020-02-05 11:27] VITALS: BP 133/89
[2020-02-05 12:17] VITALS: BP 135/89
--- NOTE | 2020-02-05 12:55 | NUR ---
Report given to DAVID Kirby at [facility].
--- NOTE | 2020-02-05 13:26 | NUR ---
[facility]. ETA 1.5 hours.
--- NOTE | 2020-02-05 13:48 | NUR ---
PIV to right AC discontinued, catheter intact, no bleeding noted. Respiration even and unlabored without SOB. Spouse at bedside. Call light in reach. Awaiting transportation poultry picker at this time.
--- NOTE | 2020-02-05 15:07 | NUR ---
Patient is transported via stretcher by [facility]. All personal belongings are taken.
--- NOTE | 2020-02-06 08:57 | Discharge Summary ---
PRIMARY CARE PHYSICIAN: Dr. Ankit Jacobsen. ALMOND SORTER: Dr. Mil Brito. FINAL DIAGNOSES: 1. Status post fall with left femoral neck fracture. 2. Status post left femoral neck open reduction and internal fixation. 3. Baseline Parkinson disease associated with dementia. 4. Baseline medical debility. SUMMARY: The patient is an 89-year-old male, who lives at home with his spouse. The patient is functional per spouse that he was able to do things for himself mostly, but with dementia, he has limitation, but he usually walks with a walker. Apparently, he tripped and fell, suffered a left femoral neck fracture. The patient admitted to the hospital. He was on Parkinson's medication. The patient was having problem with pain and pain medication given and subsequently, the patient was cleared. He underwent surgical intervention done by Dr. Mil Brito. The patient did better. He is stable. Postoperatively, the patient continued to improve. He did receive physical therapy. The patient is improving with his physical therapy and request for acute inpatient rehab, which was subsequently denied by the patient's insurance. It is state that because of hip fractures noncomplicated surgical intervention, the patient is not qualified for inpatient rehab. Skilled care obtained with [facility] and insurance approved. The patient was transferred. Medication reconciliation was done. PT/OT. Fall precaution. Parkinson's medication along with the patient treatment of his chronic disease. The patient was otherwise stable. Home medication was already resumed. The patient is to follow up with his family physician, Dr. Ankit Jacobsen upon discharge from the skilled facility. The patient is stable, transferred to the skilled facility today. MD LORA Murray/ANNETTE /[id number]
[2020-02-06] MEDS ORDERED: BALSAM PERU/CASTOR OIL 60 GM OINT...G. TP SCH (09:00)
== END 2020-02-05 15:09 | DRG 480 ==
LOC: ER 11:16 → ERHOLD 11:22 → MED/SURG 14:08
PROVIDERS: ADMIT Internal Medicine; ATTEND Internal Medicine
PROC: 0QS934Z Reposition Left Femoral Shaft with Internal Fixation Device, Percutaneous Approach (ICD-10-PCS; principal; 2020-01-28)
DX: S72.002A Fracture of unspecified part of neck of left femur, initial encounter for closed fracture (principal); I50.21 Acute systolic (congestive) heart failure; G20 Parkinson's disease; F02.80 Dementia in other diseases classified elsewhere, unspecified severity, without behavioral disturbance, psychotic disturbance, mood disturbance, and anxiety; Z95.0 Presence of cardiac pacemaker; Z11.59 Encounter for screening for other viral diseases; I49.5 Sick sinus syndrome; M81.0 Age-related osteoporosis without current pathological fracture; W19.XXXA Unspecified fall, initial encounter; Y92.009 Unspecified place in unspecified non-institutional (private) residence as the place of occurrence of the external cause; N40.0 Benign prostatic hyperplasia without lower urinary tract symptoms; M19.90 Unspecified osteoarthritis, unspecified site; I11.0 Hypertensive heart disease with heart failure
CPT/HCPCS: 36415; 70450; 71045; 72125; 72170; 76000; 80048; 80053; 81001; 82550; 82553; 82607; 82746; 83880; 84443; 84484; 85014; 85018; 85025; 85610; 85730; 86850; 86900; 87086; 93005; 93306; 97139; 99284; C1713; J0690; J1940; J2001; J2270; J2405; J2710; J7030; U0002

== ENCOUNTER 2020-02-10 13:14 | Inpatient (IN) | payer MEDICARE, OTHER ==
[~2020-02-10] VITALS: Ht 175.3 cm; Wt 74.9 kg
[~2020-02-10 13:14] MED LIST changes: +DONEPEZIL HCL5 MG PO; -DONEPEZIL HCL5 MG SL
[2020-02-10] MEDS ORDERED: SODIUM CHLORIDE 0.9% 1000ML 1,000 ML IV STA (13:20)
--- OUTSIDE RECORDS SUMMARY | 2020-02-10 13:57 | XMS REPORT | Continuity of Care Document ---
Author Author Jered Waggoner [employer] Address Unknown Phone Unavailable Care Team Providers Care Knuckle [employer]er Name Role Phone [employer] Information [employer] Unavailable Un available Problems Problem Status Onset Date Classification Date Reported Comments Source RIGHT KNEE AND BALANCE Active 08/04/2016 [facility] [place] RT KNEE AND BALANCE Active 07/17/2016 [facility] AORTIC AN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, 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 [facility] [place] Active 07/05/2000 [facility] AORTIC AN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, WIT Active [facility] Medications No Data Provided for This Section Allergies, Adverse Reactions, Alerts No Known Medication Allergies Immunizations No Data Provided for This Section Results Order Name Results Value Reference Range Date Interpretation Comments Source CHEM PANEL POC Creatinine 0.7 0.5 - 1.4 11/11/2015 [facility] CHEM PANEL eGFR 87 11/11/2015 [...] should be multiplied by the estimated BMI. [facility] Pathology Reports No Data Provided [...] Moderate atherosclerotic disease of the aorta. 11/11/2015 [facility] Consultation Notes No Data Provided for This Section Discharge Summaries No Data Provided for This Section History and Physicals No Data Provided for This Section Vital Signs No Data Provided for This Section Encounters Location Location Details Encounter Type Encounter Number Reason For Visit Attending Provider ADM Date DC Date Status Source [facility] Outpatient [id number] Yareli Barker 11/11/2015 11/12/2015 [facility] [place] [facility] [id number] Mil Brito 08/17/2016 09/16/2016 [facility] [place] [facility] [id number] [place] 09/01/2016 10/01/2016 [facility] [place] [facility] [id number] Mil Brito 09/17/2016 10/17/2016 [facility] [place] [facility] [id number] [place] 10/01/2016 10/31/2016 [facility] [place] [facility] Patients [id number] Mil Brito 10/20/2016 11/19/2016 [facility] [place] Outpatient [id number] NURSE VISIT 08/07/2019 Active [facility] Pre-Reg [id number] NURSE VISIT 08/07/2019 08/07/2019 [facility] Phone Message [phone] 08/18/19 20 08/20/2019 [facility] Procedures No Data Provided for This Section Assessment and Plan No Data Provided for This Section Plan of Care No Data Provided for This Section Social History Social History Date Source No data available for this section 08/20/2019 [facility] No data available for this section 11/19/2016 [facility] [place] No data available for this section 10/31/2016 [facility] No data available for this section 11/12/2015 [facility] Family History No Data Provided for This Section Advance Directives No Data Provided for This Section Functional Status No Data Provided for This Section
--- OUTSIDE RECORDS SUMMARY | 2020-02-10 13:57 | XMS REPORT | Continuity of Care Document ---
Author Author [facility] Organization [facility] Address [address] [place] [address] Phone Unavailable Care Team Providers Care Chip Frier Name Role Phone Marc JACOBSEN PCP JOSÉ MIGUEL CADET Attphys Unavailable Marc JACOBSEN Attphys Unavailable SAHIL CADET Attphys Unavailable Jeannette HUYNH, Tyrell Attphys VISIT, [facility] NURSE Attphys Unavailable STARR BANUELOS Attphys Unavailable Amira Moise Attphys [place] Attphys Lars Barker Attphys JOSÉ MIGUEL CADET Admphys Unavailable Payers Payer Name Policy Type Policy Number Effective Date Expiration Date Christa Michael [facility] Care [id number] 2011 00:00:00 [facility] Medicare A & B [id number] 1996 00:00:00 [facility] Problems Condition Name Condition Details Condition Category Status Onset Date Resolution Date Last Treatment Date Treating Clinician Comments Source RIGHT KNEE AND BALANCE RIG T KNEE AND BALANCE Active 08/04/2016 [facility] [place] Diagnosis Active 2016-08-04 08:00:00 2016-10-20 11:52:00 [facility] RT KNEE AND BALANCE RT K NEE AND BALANCE Active 07/17/2016 [facility] [place] Diagnosis Active 2016-07-17 08:00:00 2016-09-17 14:55:0 0 [facility] AORTIC AN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, WIT AORTIC AN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, 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 [facility] Diagnosis Active 2015-10-11 00:00:00 2015-11-11 10:03:00 [facility] [place] Active 07/05/2000 [facility] Diagnosis Active 2000-07-05 08:00:00 2016-10-01 15:44:00 [facility] Pain of left thigh Problem Active [facility] Fracture of neck of left femur Problem Active [facility] Fall Problem Active [facility] Allergies, Adverse Reactions, Alerts Allergy Name Allergy Type Status Severity Reaction(s) Onset Date Inacti ve Date Treating Clinician Comments Source No Known Allergies DA Active U 2019-08-20 00:00:00 [facility] Social History Social Habit Start Date Stop Date Quantity Comments Source Social History 2015-11-12 04:59:00 2015-11-12 04:59:00 [facility] Sex Assigned At 1930 00:00:00 1930 00:00:00 Male [facility] Medications Ordered Medication Name Filled Medication Name Start Date Stop Da te Current Medication? Ordering Clinician Indication Dosage Frequency Signature (SIG) Comments Components Source Aspirin Aspirin Yes 81 Daily [facility] Carbidopa/Levodopa (Sinemet 25-100 Mg Tablet) 1 Each T ABLET Carbidopa/Levodopa (Sinemet 25-100 Mg Tablet) 1 Each TABLET Yes 3 Three Times A Day [facility] Donepezil Hcl Donepezil Hcl Yes 5 Daily [facility] Furosemide Furosemide Yes 40 Daily [facility] Ibuprofen (Advil) 100 Mg TAB.CHEW Ibuprofen (Advil) 100 Mg TAB.CHEW Yes 650 As Needed [facility] Multivitamin (Multi-Vitamin Daily) 1 Each TABLET Multi vitamin (Multi-Vitamin Daily) 1 Each TABLET Yes [facility] Naproxen Naproxen Yes 500 Twice A Day [facility] Polyethylene Glycol 3350 (Miralax) 17 Gm POWD.PACK Ernst yethylene Glycol 3350 (Miralax) 17 Gm POWD.PACK Yes 17 Daily [facility] Tamsulosin Hcl (Flomax*) 0.4 Mg CAP Tamsulosin Hcl (Flomax*) 0.4 Mg C AP Yes .4 Bedtime [facility] Vital Signs Vital Name Observation Time Observation Value Comments Source Body Temperature 2020-02-05 11:27:00 99.4 [degF] [facility] Weight 2020-02-04 08:09:00 177 [lb_av] [facility] BMI (Body Mass Index) 2020-02-04 08:09:00 26.1 kg/m2 [facility] Procedures Procedure Date / Time Performed Performing Clinician [facility] e Computed tomography of brain without radiopaque contrast 2020-01 00:00:00 [facility] Computed tomography of cervical spine without contrast 2020-01-04 6 00:00:00 [facility] X-ray of chest, single view 2020-01-28 00:00:00 [facility] Encounters Start Date/Time End Date/Time Encounter Type [facility] Department Encounter ID Source 2020-01-28 11:22:00 2020-02-05 15:09:00 Discharged Inpatient 1 JOSÉ MIGUEL CADET [facility] [id number] [facility] 2020-01-26 09:52:00 2020-01-26 09:52:00 Registered Clinic 3 MARTINE JACOBSEN [facility] [id number] [facility] 2020-01-16 20:00:00 2020-01-16 22:15:00 Departed Emergency Room SAHIL CADET [facility] [id number] [facility] 2020-01-04 10:51:08 2020-01-04 13:54:57 Office Visit Tyrell Collier [facility] [id number] 2019-08-18 15:53:01 2019-08-19 23:59:59 [facility]patient [facility] [id number] 2019-08-07 08:30:00 2019-08-07 08:30:[address] [facility] [id number] 2019-03-13 09:53:00 2019-04-03 23:59:00 Discharged Recurring [facility] [id number] [facility] 2019-03-15 09:29:00 2019-03-15 09:29:00 Registered Clinic 3 MARTINE JACOBSEN [facility] [id number] [facility] 2019-02-03 10:08:00 2019-03-04 23:59:00 Discharged Recurring [facility] [id number] [facility] 2019-02-10 10:09:00 2019-02-10 10:09:00 Registered Clinic 3 MARTINE JACOBSEN [facility] [id number] [facility] 2019-01-12 09:48:00 2019-02-01 23:59:00 Discharged Recurring [facility] [id number] [facility] 2019-01-03 11:32:00 2019-01-03 11:32:00 Registered Clinic 3 STARR BANUELOS [facility] [id number] [facility] 2016-10-20 11:45:00 2016-11-18 23:59:00 Outpatient Mil Moise [id number] 2016-10-01 08:00:00 2016-10-30 23:59:00 Outpatient [place] [facility] [id number] 2016-09-17 14:52:00 2016-10-16 23:59:00 Outpatient Mil Moise [id number] 2016-09-01 08:00:00 2016-09-30 23:59:00 Outpatient [place] [facility] [id number] 2016-08-17 09:30:00 2016-09-15 23:59:00 Outpatient Mli Moise [id number] 2015-11-11 09:52:00 2015-11-11 23:59:00 Outpatient Radha Barker [facility] [id number] Results Test Description Test Time Test Comments Results Result Comments Source Blood leukocytes automated count (number/volume) 2020-02-04 05:05:00 Test Item White Blood Count (test code = 6690-2) 6.73 4.8-10.8 [facility] erythrocytes automated count (number/volume)2020-02-04 05:05:00* Test Item Value Reference Range Interpretation Comments Red Blood Count (test code = 789-8) 4.09 4.3-5.7 [facility] hemoglobin measurement (moles/volume)2020-02-04 05:05:00* Test Item Value Reference Range Interpretation Comments Hemoglobin (test code = 99391-7) 13.4 14.0-18.0 [facility] CenterAutomated blood hematocrit (volume fraction)2020-02-04 05:05:00* Test Item Value Reference Range Interpretation Comments Hematocrit (test code = 4544-3) 39.9 38.2-49.6 [facility] CenterAutomated erythrocyte mean corpuscular vanosq2568-50-12 05:05:00* Test Item Value Reference Range Interpretation Comments Mean Corpuscular Volume (test code = 787-2) 97.6 81-99 [facility] CenterAutom[facility] erythrocyte mean corpuscular hemoglobin (mass per erythrocyte)2020-02-04 05:05:00* Test Item Value Reference Range Interpretation Comments Mean Corpuscular Hemoglobin (test code = 785-6) 32.8 28-32 [facility] CenterAutomated erythrocyte mean corpuscular hemoglobin concentration measurement (mass/volume)2020-02-04 05:05:00* Test Item Value Reference Range Interpretation Comments Mean Corpuscular Hemoglobin Concent (test code = 786-4) 33.6 31-35 [facility] CenterRDW UjxCp-Qwy1956-61-02 05:05:00* Test Item Value Reference Range Interpretation Comments Red Cell Distribution Width (test code = 91330-0) 12.6 11.7 -14.4 [facility] CenterAutom[facility] blood platelet count (count/volume)2020-02-04 05:05:00* Test Item Value Reference Range Interpretation Comments Platelet Count (test code = 777-3) 285 140-360 [facility] CenterAutom[facility] blood segmented neutrophil count as percentage of total yefuqjrwtk3292-62-31 05:05:00* Test Item Value Reference Range Interpretation Comments Neutrophils (%) (Auto) (test code = 22705-2) 70.0 38.7-80.0 [facility] CenterAutomated blood lymphocyte count as percentage ot total svovkwfjmo2847-28-33 05:05:00* Test Item Value Reference Range Interpretation Comments Lymphocytes (%) (Auto) (test code = 736-9) 15.3 18.0-39.1 [facility] CenterAutom[facility] blood monocyte count as percentage of total kvyocamwdm6106-14-87 05:05:00* Test Item Value Reference Range Interpretation Comments Monocytes (%) (Auto) (test code = 5905-5) 11.7 4.4-11.3 [facility] CenterAutomated blood eosinophil count as percentage of total yijctljbzj6470-10-96 05:05:00* Test Item Value Reference Range Interpretation Comments Eosinophils (%) (Auto) (test code = 713-8) 1.8 0.0-6.0 [facility] CenterAutomated blood basophil count as percentage of total tavbjttpxx4947-45-20 05:05:00* Test Item Value Reference Range Interpretation Comments Basophils (%) (Auto) (test code = 706-2) 0.6 0.0-1.0 [facility] CenterFluoroscopic procedure less than one hour dqjwmlby3799-50-67 05:05:00* Test Item Value Reference Range Interpretation Comments IM GRANULOCYTES % (test code = IM GRANULOCYTES %) 0.6 0.0- 1.0 [facility] CenterAutom[facility] blood neutrophil count 2020-02-04 05:05:00* Test Item Value Reference Range Interpretation Comments Neutrophils # (Auto) (test code = 751-8) 4.7 2.1-6.9 [facility] lymphocytes count (number/volume) 2020-02-04 05:05:00* Test Item Value Reference Range Interpretation Comments Lymphocytes # (Auto) (test code = 51969-3) 1.0 1.0-3.2 [facility] monocytes automated count (number/volume)2020-02-04 05:05:00* Test Item Value Reference Range Interpretation Comments Monocytes # (Auto) (test code = 742-7) 0.8 0.2-0.8 [facility] CenterAutomated blood eosinophil count 2020-02-04 05:05:00* Test Item Value Reference Range Interpretation Comments Eosinophils # (Auto) (test code = 711-2) 0.1 0.0-0.4 [facility] CenterAutomated blood basophil count (count/volume)2020-02-04 05:05:00* Test Item Value Reference Range Interpretation Comments Basophils # (Auto) (test code = 704-7) 0.0 0.0-0.1 [facility] CenterFluoroscopic procedure less than one hour mwuxmxyv1308-38-91 05:05:00* Test Item Value Reference Range Interpretation Comments Absolute Immature Granulocyte (auto (kia t code = Absolute Immature Granulocyte (auto) 0.04 0-0.1 [facility] or plasma sodium measurement (moles/volume)2020-02-04 05:05:00* Test Item Value Reference Range Interpretation Comments Sodium Level (test code = 2951-2) 137 136-145 [facility]icserum or plasma potassium measurement (moles/volume)2020-02-04 05:05:00* Test Item Value Reference Range Interpretation Comments Potassium Level (test code = 2823-3) 4.0 3.5-5.1 [facility]ics[facility] or plasma chloride measurement (moles/volume)2020-02-04 05:05:00* Test Item Value Reference Range Interpretation Comments Chloride Level (test code = 2075-0) 101 98-107 [facility]icserum or plasma carbon dioxide, total measurement (moles/volume)2020-02-04 05:05:00* Test Item Value Reference Range Interpretation Comments Carbon Dioxide Level (test code = 2028-9) 27 22-29 [facility]icserum or plasma anion zgu7098-62-98 05:05:00* Test Item Value Reference Range Interpretation Comments Anion Gap (test code = 46755-2) 13.0 8-16 [facility]ics[facility] or plasma urea nitrogen measurement (mass/volume)2020-02-04 05:05:00* Test Item Value Reference Range Interpretation Comments Blood Urea Nitrogen (test code = 3094-0) 16 7-26 [facility]icserum or plasma creatinine measurement (mass/volume)2020-02-04 05:05:00* Test Item Value Reference Range Interpretation Comments Creatinine (test code = 2160-0) 0.70 0.72-1.25 [facility]icserum or plasma urea nitrogen/creatinine mass emsdh2871-06-47 05:05:00* Test Item Value Reference Range Interpretation Comments BUN/Creatinine Ratio (test code = 3097-3) 23 6-25 [facility] CenterEstimated glomerular filtration rate (GFR) oxmicbctghihi4928-88-02 05:05:00* Test Item Value Reference Range Interpretation Comments Estimat Glomerular Filtration Rate (test code = 791800589) > 60 >60 Ranges were taken from the National Kidney Disease Education Program and the [facility] literature.Reference ranges:60 or greater: Emppqf70-38 ( for 3 consecutive months): Chronic kidney disease 15 or less: Kidney failureMethodist Charlton Medical CenterGlucose tkhlgzdhvgs1261-71-20 05:05:00* Test Item Value Reference Range Interpretation Comments Glucose Level (test code = MXD3797) 96 74-118 [facility]ics[facility]um or plasma calcium measurement (mass/volume)2020-02-04 05:05:00* Test Item Value Reference Range Interpretation Comments Calcium Level (test code = 95466-5) 8.6 8.4-10.2 [facility] CenterUrine color rjokqzwegzaek0842-81-72 15:33:00* Test Item Value Reference Range Interpretation Comments Urine Color (test code = 5778-6) YELLOW YELLOW [facility] CenterUrine entearl4892-26-67 15:33:00* Test Item Value Reference Range Interpretation Comments Urine Clarity (test code = 18732-1) SL CLOUDY CLEAR [facility]icspecific gravity of Urine by Test strip 2020-01-30 15:33:00* Test Item Value Reference Range Interpretation Comments Urine Specific [place] (test code = 5811-5) 1.025 1.010-1.02 5 [facility] CenterUrine pH measurement by automated test cvxny5166-76-12 15:33:00* Test Item Value Reference Range Interpretation Comments Urine pH (test code = 65428-5) 7 5-7 [facility] CenterUrine leukocyte esterase detection by lixyjvcw8441-53-40 15:33:00* Test Item Value Reference Range Interpretation Comments Urine Leukocyte Esterase (test code = 5799-2) NEGATIVE NEGATIVE [facility] CenterUrine nitrite qkdzygbyb4689-44-41 15:33:00* Test Item Value Reference Range Interpretation Comments Urine Nitrite (test code = 58493-2) NEGATIVE NEGATIVE [facility] CenterUrine protein measurement by test strip (mass/volume)2020-01-30 15:33:00* Test Item Value Reference Range Interpretation Comments Urine Protein (test code = 5804-0) 1+ NEGATIVE [facility] CenterUrine glucose bgdzircje6375-56-71 15:33:00* Test Item Value Reference Range Interpretation Comments Urine Glucose (UA) (test code = 2349-9) NEGATIVE NEGATIVE [facility] CenterUrine ketones detection by automated test fzvyx4551-69-26 15:33:00* Test Item Value Reference Range Interpretation Comments Urine Ketones (test code = 56105-6) 2+ NEGATIVE [facility] CenterUrine urobilinogen measurement by test strip (mass/volume)2020-01-30 15:33:00* Test Item Value Reference Range Interpretation Comments Urine Urobilinogen (test code = 30439-5) 0.2 0.2-1 [facility] CenterUrine total bilirubin measurement (mass/volume)2020-01-30 15:33:00* Test Item Value Reference Range Interpretation Comments Urine Bilirubin (test code = 1978-6) SMALL NEGATIVE [facility] CenterUrine erythrocytes fzaljwisp6826-53-35 15:33:00* Test Item Value Reference Range Interpretation Comments Urine Blood (test code = 23216-7) TRACE NEGATIVE [facility] CenterAutomated urine sediment leukocyte count by microscopy (number/high power field)2020-01-30 15:33:00* Test Item Value Reference Range Interpretation Comments Urine WBC (test code = 5821-4) NONE 0-5 [facility] CenterErythrocytes detection in urine sediment by light moxfllgelz6329-15-95 15:33:00* Test Item Value Reference Range Interpretation Comments Urine RBC (test code = 53207-7) NONE 0-5 [facility] CenterBacteria detection in urine sediment by light eraypgscco0701-64-67 15:33:00* Test Item Value Reference Range Interpretation Comments Urine Bacteria (test code = 20329-7) FEW NONE [facility] CenterEpithelial cells detection in urine sediment by light zztlpxcfcv6567-90-84 15:33:00* Test Item Value Reference Range Interpretation Comments Urine Epithelial Cells (test code = 53616-6) NONE NONE [facility] CenterPELVIS AP 1-2 CHTLW0950-80-91 14:55:00 [facility] [address] [facility] [place] [address] Patient Name: WAYNE MCCARTNEY MR #: [id number] : 1930 Age/Sex: 89/M Req #: [id number] Adm Physician: JOSÉ MIGUEL CADET MD Ordered by: MIL MOISE MD Report #: [id number] Location: MED/SURG Natalya m/Bed: 100 Procedure: [id number] DX/PELVIS A P 1-2 VIEWS Exam Date: 01/30/20 Exam Time: 1430 REPORT STATUS: Signed EXAMINATION: PELVIS AP 1-2 VIEWS INDICATION: Postoperative COMPARISON: Pelvic a nd hip radiographs of 01/28/2020, bone scan of 01/26/2020 FINDINGS: AP view of the pelvis demonstrates postoperative findings of left proximal fe mur ORIF with 3 partially threaded screws. No displaced fracture. Mild degener ative changes of both [place] hip joints. Surgical skin cheikh in place. IM PRESSION: Anatomic alignment status post ORIF of the left proximal femur. Signed by: Hung Talley MD on 01/30/2020 2:57 PM Dictated By: HUNG TALLEY MD 56 Transcribed By: RAMEZ BATRES on 01/30/201456 COPY TO: MIL MOISE MD Serum or plasma total bilirubin measurement (mass/volume)2020-01-29 06:21:00* Test Item Value Reference Range Interpretation Comments Total Bilirubin (test code = 1975-2) 0.7 0.2-1.2 [facility] CenterFluoroscopic procedure less than one hour ixvmgkrn3350-01-90 06:21:00* Test Item Value Reference Range Interpretation Comments Aspartate Amino Transf (AST/SGOT) (test code = Aspartate Amino Transf (AST/SGOT)) 21 -34 [facility]icserum or plasma alanine aminotransferase measurement (enzymatic activity/volume)2020-01-29 06:21:00* Test Item Value Reference Range Interpretation Comments Alanine Aminotransferase (ALT/SGPT) (test code = 1742-6) 8 0-55 [facility]icserum or plasma protein measurement (mass/volume)2020-01-29 06:21:00* Test Item Value Reference Range Interpretation Comments Total Protein (test code = 2885-2) 6.1 6.5-8.1 [facility]icserum or plasma albumin measurement (mass/volume)2020-01-29 06:21:00* Test Item Value Reference Range Interpretation Comments Albumin (test code = 1751-7) 3.4 3.5-5.0 [facility] CenterPlasma globulin measurement (mass/volume) 2020-01-29 06:21:00* Test Item Value Reference Range Interpretation Comments Globulin (test code = 97662-3) 2.7 2.3-3.5 [facility]icserum or plasma albumin/globulin mass igsur9851-57-08 06:21:00* Test Item Value Reference Range Interpretation Comments Albumin/Globulin Ratio (test code = 1759-0) 1.3 0.8-2.0 [facility]icserum or plasma alkaline phosphatase measurement (enzymatic activity/volume)2020-01-29 06:21:00* Test Item Value Reference Range Interpretation Comments Alkaline Phosphatase (test code = 6768-6) 76 40-150 [facility]icserum or plasma creatine kinase measurement (enzymatic activity/volume)2020-01-29 06:21:00* Test Item Value Reference Range Interpretation Comments Creatine Kinase (test code = 2157-6) 54 30-200 [facility]icserum or plasma creatine kinase MB measurement (mass/volume)2020-01-29 06:21:00* Test Item Value Reference Range Interpretation Comments Creatine Kinase MB (test code = 39096-4) 2.00 0-5.0 [facility] CenterTroponin I measurement by highly sensitive enzyme chsqcblwkoh5372-90-76 06:21:00* Test Item Value Reference Range Interpretation Comments Troponin I (test code = 42932-0) 0.019 0-0.300 [facility] CenterBlood cobalamin (vitamin B12) measurement (mass/volume)2020-01-29 06:21:00* Test Item Value Reference Range Interpretation Comments Vitamin B12 Level (test code = 42901-1) 656 213-816 [facility]icserum or plasma thyrotropin measurement by detection limit <= 0.005 miu/l (units/volume)2020-01-29 06:21:00* Test Item Value Reference Range Interpretation Comments Thyroid Stimulating Hormone (TSH) (test code = 10278-8) 2.235 0.350-4.940 [facility]icserum or plasma folate measurement (mass/volume)2020-01-29 06:21:00* Test Item Value Reference Range Interpretation Comments Folate (test code = 2284-8) 15.4 >3.0 A serum folate concentration of less than 3.1 ng/mL isconsidered to represent cl inical deficiency.Performed at: [facility] [address] [id number] Director: Feliciano Case MD, Phone: [phone] Charlton Medical CenterCHEST SINGLE (NOT PORTABLE)2020-01-28 13:54:00 [facility] [address] [place] [address] Patient Name: WAYNE MCCARTNEY MR #: [id number] : 1930 Age/Sex: 89/M Req #: [id number] Adm Physician: JOSÉ MIGUEL CADET MD Ordered by: KEITH ORLANDO MD Report #: [id number] Location: [facility] Room/Bed: [place] [address] Procedure: DX/CHEST SINGL E (NOT PORTABLE) Exam Date: 01/28/20 Exam Time: 1256 REPORT STATUS: Signed EXAMINATI ON: CHEST SINGLE (NOT PORTABLE) INDICATION: FALL 01/15 WITH LEFT FEM NE CK FX COMPARISON: None FINDINGS: AP view TUBES and LINES : 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 . LUNGS /PLEURA: Lungs are well inflated. There are bilateral interstitial opacities , consistent with pulmonary edema.. There is no pleural effusion or pneumothor ax. HEART AND MEDIASTINUM: Cardiac size is mildly enlarged. BONES AND SOFT TISSUES: No acute osseous lesion. Soft tissues are unremarkable. UPPER ABDOMEN: No free air under the diaphragm. IMPRESSION: Mild pulmonary edema. Signed by: Héctor Agustin MD on 01/28/2020 1:55 PM Dictated By: HÉCTOR AGUSTIN MD 1355 Transcribed By: ELAYNE on 01/28/20 1355 COPY T O: KEITH ORLANDO MD HIP LEFT 2-3 VW (+/- PELVIS)2020-01-28 13:49:00 [place] [address] Patient Name: WAYNE MCCARTNEY MR #: [id number] : 1930 Age/Sex: 89/M Req #: [id number] Adm Physician: JOSÉ MIGUEL CADET MD Ordered by: KEITH ORLANDO MD Rep ort #: [id number] Location: [facility]/B ed: [place] [address] Procedure: DX/HIP LEFT 2- 3 VW (+/- PELVIS) Exam Date: Exam Time: REPORT STATUS: Signed HIP LEFT 2-3 VW (+/- PELVIS) - Multiple views HISTORY: FALL 01/15 WITH LEFT FEM NECK FX COMP ARISON: Hip x-ray dated 01/16/2020. Bone scan dated 01/26/2020. FINDINGS : Bones: No acute displaced fracture. The left femoral neck fracture repor rima on bone scan on 01/26/2020 is not seen on this exam. Osseous alignment is within normal limits. Joints: There are bilateral hip joint space narrow ing and bone production compatible with osteoarthritis. Soft tissues: T he soft tissues appear unremarkable. IMPRESSION: Left femoral neck frac ture reported on bone scan on 01/26/2020 is not seen on this exam. Signed by: Héctor Agustin MD on 01/28/2020 1:53 PM Dictated By: HÉCTOR LEIGH MD 1353 Transc ribed By: ELAYNE on 01/28/20 1353 COPY TO: KEITH ORLANDO MD CT CERVICAL SPINE [id number] 13:46:00 [place] [address] Patient Name: WAYNE MCCARTNEY MR #: [id number] : 1930 Age/Sex: 89/M Req #: [id number] Adm Physician: JOSÉ MIGUEL CADET MD Ordered by: KEITH ORLANDO MD Report #: [id number] Location: [facility] Room/Bed: [place] [address] Procedure: [id number] CT/CT CERVICAL SPINE WO Exam Date: 01/28/20 Exam Time: 1302 REPORT STATUS: Signed CT CERVICAL SPIN E WO HISTORY: Trauma COMPARISON: Concurrent head CT TECHNIQUE: C T of the cervical spine without contrast. Sagittal and coronal reformations w ere created. One or more of the following dose reduction techniques were used : Automated exposure control, adjustment of the mA and/or kV according to sarbjit ent size, and/or utilization of iterative reconstruction technique. FINDI NGS: Mild bone demineralization limits evaluation. Cervical lordosis is st raightened. There is no significant scoliosis. No definite acute fracture or compression deformity is seen. The craniocervical junction is intact. No gross spinal canal masses are seen. The paravertebral and paraspinal soft ti ssues are unremarkable. Degenerative changes. Moderate multilevel spondylo tic changes are associated with facet arthrosis. There is associated minimal g rade 1 anterolisthesis of C3 on C4. Prominent atlantoaxial arthrosis is presen t as well. At least mild multilevel canal stenoses are due to posterior disc o steophyte complexes. Multilevel moderate to severe bilateral foraminal stenose s are due to uncovertebral and facet arthrosis. Additional findings: Smal l bilateral pleural effusions are partially imaged. Incidental hypodense left thyroid nodule measures up to 1.3 cm; no further imaging is indicated. Small a mount of air is seen in the right submandibular region and in the lower right internal jugular vein. Mild bilateral carotid bulb calcified plaque is present . Cardiac device in the left anterior chest wall is partially imaged. IMP RESSION: 1. No acute osseous abnormalities. 2. Degenerative changes as d escribed. Signed by: Dr. Logan Anderson M.D. on 01/28/2020 1:52 PM D ictated By: LOGAN ANDERSON MD 1352 COPY TO: KEITH ORLANDO MD CT BRAIN [id number] 13:39:00 [place] [address] Patient Name: WAYNE MCCARTNEY MR #: [id number] : 1930 Age/Sex: 89/M Req #: [id number] Adm Physician: JOSÉ MIGUEL CADET MD Ordered by: KEITH ORLANDO MD Report #: [id number] Location: [facility] Room/Bed: [place] [address] Procedure: [id number] CT/CT BRAIN WO Exam Date: 01/28/20 Exam Time: 1302 REPORT STATUS: Signed CT BRAIN WO HISTORY: Trauma COMPARISON: None. Technique: Noncontrast axial scans were obtained from skull base to the vertex. Coronal and sagittal reconstructions obtained from the axial data. One or more of the following dose reduction kasandra hniques were used: Automated exposure control, adjustment of the mA and/or kV according to patient size, and/or utilization of iterative reconstruction tech nique. DISCUSSION: Scalp/Skull: Unremarkable. Brain sulci: Mildly pr ominent. Ventricles: Compensatory dilatation. Extra-axial spaces: No masses or fluid collections. Carotid and vertebral artery calcifications are present. Parenchyma: Moderate bilateral deep white matter hypodensity is likely chronic microvascular ischemic change. Otherwise, no masses, hemorrhage, or large vascular territory acute infarct. Dural sinuses: No abnormal densit ies. Sellar/Suprasellar region: Intact. Skull base: Intact. Incidental fin dings: Bilateral ocular lens replacement. Small amount of subcutaneous air is seen in the right premaxillary region. IMPRESSION: 1. No acute intracran ial abnormalities. 2. 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 Mild generalized cerebral volume loss. Signed by: Dr. Logan draper M.D. on 01/28/2020 1:44 PM Dictated By: LOGAN ANDERSON MD Elect ronically Signed By: LOGAN ANDERSON MD on 01/28/201343 Transcribed By: KLEVER MEZA on 01/28/201343 COPY TO: KEITH ORLANDO MD Fluoroscopic procedure less than one hour [id number] 12:10:00* Test Item Value Reference Range Interpretation Comments Coronavirus (PCR) (test code = Coronavirus (PCR)) NOT DETECTED NOTD ETECTED iAgreegic Aptima SARS-CoV-2 assay is a nucleic amplification test intended for the qualitative detection of RNA from SARS-CoV-2 from nasopharyngeal (CLOUD OPERATIONS ENGINEER) specimens . It is used under Emergency Use Authorization (EUA) by FDA.A positive result is indicative of the presence of SARS-CoV-2 RNA. Clinical correlation with patient history and other diagnostic information is necessary to determine patient infe ction status.A negative (Not Detected) result does not preclude SARS-CoV-2 infec tion. Clinical Correlation with patient history and other diagnostic information should be used in patient management decisions.Invalid: Unable to generate a va lid result on this specimen. Please submit a new specimen for reprat testing oc clinically indicated.Tesing performed by:[facility] Laboratory [address] [place] [address] [id number], Ephraim Villaseñor MD, PhD [facility] CenterProthrombin time (PT) in platelet poor plasma by coagulation [id number] 11:15:00* Test Item Value Reference Range Interpretation Comments Prothrombin Time (test code = 5902-2) 13.4 11.9-14.5 [facility] CenterINR in Platelet poor plasma by Coagulation [id number] 11:15:00* Test Item Value Reference Range Interpretation Comments Prothromb Time International Ratio (test code = 6301-6) 0.97 Oral Anticoagulant Therapy INR Values:1. Low Intensity Therapy 1.5 - 2.02 . Moderate Intensity Therapy 2.0 - 3.03. High Intensity Therapy(1) 2.5 - 3. 54. High Intensity Therapy(2) 3.0 - 4.05. Panic Value INR > 5.0 [facility] CenterActivated partial thromboplastin time (aPTT) in platelet poor plasma by coagulation [id number] 11:15:00* Test Item Value Reference Range Interpretation Comments Activated Partial Thromboplast Time (test code = 31542-1) 35.3 23.8-35.5 [facility] CenterBNP Ziz-gHud2072-41-26 11:15:00* Test Item Value Reference Range Interpretation Comments B-Type Natriuretic Peptide (test code = 07347-0) 401.4 0-100 [facility], 3 [id number] 17:18:00 [facility] [address] [place] [address] Patient Name: WAYNE MCCARTNEY MR #: [id number] : 1930 Age/Sex: 89/M Req #: [id number] Adm Physician: Ordered by: MARTINE JACOBSEN Report #: [id number] Location: [place] Room/Bed: Procedure: [id number] NM/BONE SCAN, 3 PHASE Exam Date: 01/26/20 Exam Time: 1045 REPORT STATUS: Signed Bone Scan, thr ee-phase Reason for exam: 89 M with left leg pain. Sustained on fall on hi s left side on 01/16/2020 and has complained of leg pain since the fall. R adiopharmaceutical: Tc-99m MDP 27.4 mCi IV RAC Comparison: Left femur and hip radiographs 01/16/2020 Following intravenous administration of the radi opharmaceutical, dynamic flow and immediate blood pool images of the thighs fo llowed by delayed total body and selected spot images were obtained. The flow and blood pool images show symmetric distribution of tracer in the thigh s and knees bilaterally. The hips were not included on these images. Two s mall round foci of increased tracer are seen in the anterior aspect of the lef t 3rd and 4th ribs in an adjacent pattern. Focal moderately increased tracer is seen in the femoral neck of the left femur. A left knee prosthesis is prese nt and has not associated increased osteoblastic activity. Impression: 1. Acute fracture in the left femoral neck. 2. Healing rib fractures in the left 3rd and 4th ribs anteriorly. 3. Dr. Martine Jacobsen was notified of these results at 5:30 pm on 01/26/2020. Signed by: Dr. Annmarie Waite M.D. on 01/26/2020 5:37 PM Dictated By: ANNMARIE WAITE MD 36 Transcribed By: ELAYNE on 01/26/201736 COPY TO: MARTINE JACOBSEN HIP LEFT 2-3 VW (+/- PELVIS)2020-01-16 21:36:00 [place] [address] Patient Name: WAYNE MCCARTNEY MR #: [id number] : 1930 Age/Sex: 89/M Req #: [id number] Adm Physician: Ordered by: SAHIL CADET DO Report #: [id number] Location: ER Room/Bed: Procedure: [id number] DX/HIP LEFT 2-3 VW (+/- PELVIS) Exam Date: Exam Time: REPORT STATUS: Signed Exam: Left hip an d AP pelvis, 3 views History: Status post fall, left Comparison: None . Findings: There is decreased bone mineralization, which limits evaluatio n of the bony structures. No acute, displaced fracture or dislocation. Mild to moderate degenerative changes in bilateral hip and sacroiliac joints a nd lower lower lumbosacral spine. No lytic lesions. Well-circumscribed 2.0 cm round sclerotic focus projecting over the left iliac crest likely represents a gluteal injection granuloma and less likely a bone island. No soft tissue swelling. Impression: 1. No acute, displaced fracture or dislocation despite the limitations of the study. Correlate clinically for need for furthe r imaging. Signed by: Dr. Rodrigo Bianchi M.D. on 01/16/2020 9:38 PM Dictated By: RODRIGO BIANCHI MD 37 Transcribed By: ELAYNE on 01/16/202137 COPY TO: SAHIL PENDLETON DO FEMUR 2 VIEWS MINIMUM [id number] 21:33:00 [place] [address] Patient Name: WAYNE MCCARTNEY MR #: [id number] : 1930 Age/Sex: 89/M Req #: [id number] Adm Physician: Ordered by: SAHIL CADET DO Report #: [id number] Location: ER Room/Bed: Procedure: [id number] DX/FEMUR 2 VIEW S MINIMUM LEFT Exam Date: Exam Time: REPORT STATUS: Signed Exam: Left femur, 4 views History: Status post fall, leg pain. Comparison: None. Fi ndings: There is decreased bone mineralization, which limits evaluation of th e bony structures.. No acute, displaced fracture or dislocation. Mild to mod erate degenerative changes in the left hip joint. 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 Vascular calcifications. No aggressive lytic or suspicious focal scleroti c lesions. No soft tissue swelling. Impression: 1. No acute, displac ed fracture or dislocation despite the limitations. Signed by: Dr. Zohaib Bianchi M.D. on 01/16/2020 9:34 PM Dictated By: RODRIGO BIANCHI MD E lectronically Signed By: RODRIGO BIANCHI MD on 01/16/202133 Transcribed By: JOI CADET on 01/16/202133 COPY TO: SAHIL CADET DO COMPREHENSIVE METABOLIC [id number] 06:31:00* Test Item Value Reference Range Interpretation Comments [...] due to change in reagent. COMPREHENSIVE METABOLIC [id number] 06:18:00* Test Item Value Reference Range Interpretation [...] code = ALKP) IUnit/L 45-117 CBC W/AUTO [id number] 05:53:00* Test Item Value Reference Range Interpretation [...] NRBC#) 0.00 K/mm3 0.0-0.1 N CBC W/AUTO [id number] 05:50:00* Test Item Value Reference Range Interpretation [...] code = BA#) K/mm3 0.0-0.2 COMPREHENSIVE METABOLIC [id number] 07:27:00* Test Item Value Reference Range Interpretation [...] due to change in reagent. COMPREHENSIVE METABOLIC [id number] 07:16:00* Test Item Value Reference Range Interpretation [...] code = ALKP) IUnit/L 45-117 CBC W/AUTO [id number] 07:05:00* Test Item Value Reference Range Interpretation [...] code = NRBC#) 0.00 K/mm3 0.0-0.1 N [id number] 20:39:00* Test Item Value Reference Range Interpretation Comments GLUBED (test code = GLUBED) 113 mg/dL 74-106 H Performed by certified fire engine pump operator at [facility] - XR CHEST 2 [id number] 13:02:00 FAX: Griselda Toure MD [phone] [place]: St: DIS FAX: Ondina Nova DO [phone] Name: WAYNE MCCARTNEY [facility] : 1930 Age/S: 89/M [address] [facility] Unit #: [id number] Loc: V.5013 [place] [address] Phys: Ondina Way DO Acct: [id number] Dis Date: [id number] Status: DIS IN PHONE #: [phone] Exam Date: 08/23/2019 1220 FAX #: [phone] Reason: S/P PPM INSERTION EXAMS: CPT CODE: [id number] XR CHEST 2 V 42772 REASON FOR EXAM: S/P PPM INSERTION Exam Order Date: 08/23/2019 5:00 AM Ordering Chito: Ondnia Nova DO PROCEDURE: - XR CHEST 2 [...] the right atrium, right ventricle, and left ginger tricle and are unchanged from the previous study. IMPRES CHI: No acute cardiopulmonary process. Location: [facility] at 1302 Reported and signed by: Tyson Kamara MD CC: Daksha Smith ma, MD; Ondina Nova DO Technologist: Margo Babin RT(R) Trnscrd Date/Time/By: 08/23/2019 (7299) : By: t [email or web address] Orig Print D/T: S: 08/23/2019 (8238) PAGE 1 Signed Report - XR CHEST 2 [id number] 13:02:00 FAX: Griselda Toure MD [phone] [place]: St: [facility] FAX: Ondina Nova DO [phone] Name: WYANE MCCARTNEY [facility] : 1930 Age/S: 89/M [address] [facility] Unit #: [id number] Loc: V.5[address] [place] [address] Phys: Ondina Way DO Acct: [id number] Dis Date: Status: ADM IN PHONE #: [phone] Exam Date: 08/23/2019 1220 FAX #: [phone] Reason: S/P PPM INSERTION EXAMS: CPT CODE: [id number] XR CHEST 2 V 07936 REASON FOR EXAM: S/P PPM INSERTION Exam Order Date: 08/23/2019 5:00 AM Ordering [place]: Ondina Nova DO PROCEDURE: - XR CHEST [...] the right atrium, right ventricle, and left ginger tricle and are unchanged from the previous study. IMPRES CHI: No acute cardiopulmonary process. Location: [facility] at 1302 Reported and signed by: Tyson Kamara MD CC: Daksha Smith ma, MD; Ondina Nova DO Technologist: Margo Babin RT(R) Trnscrd Date/Time/By: 08/23/2019 (3031) : By: t [email or web address] Orig Print D/T: S: 08/23/2019 (7607) PAGE 1 Signed Report - XR CHEST 1 [id number] 13:43:00 FAX: Griselda Toure MD [phone] [place]: St: DIS FAX: Ondina Nova DO [phone] Name: WAYNE MCCARTNEY [facility] : 1930 Age/S: 89/M [address] Unit #: [id number] Loc: V.5013 [place] [address] Phys: Ondina Way DO Acct: [id number] Dis Date: [id number] Status: DIS IN PHONE #: [phone] Exam Date: 08/22/2019 1328 FAX #: [phone] Reason: S/P PPM INSERTION EXAMS: CPT CODE: [id number] XR CHEST 1 V 38562 REASON FOR EXAM: S/P PPM INSERTION Exam Order Date: 08/22/2019 1:17 PM Ordering MMichael: Ondina Nova DO PROCEDURE: - XR CHEST 1 V COMPARISON: Chest x-ray August 20, 2019 FINDINGS: There is subsegmental atelectasis in the left lung base. Remainder of the lungs are clear. Cardi omediastinal silhouette is normal in size for technique. The aorta is tort uous. There is been interval placement of a left subclavian biventricular pacemaker with leads in the right atrium, right ventricle, and left ventri mario. There are degenerative changes in the spine. Th e visualized upper abdomen is within normal limits. IMPR ESSION: No pneumothorax following placement of left subclavian biventric ular pacemaker. Lungs are clear other than mild subsegmental ate lectasis in the left lung base. Location: [facility] at 1343 Reported and signed by: Tyson Kamara MD CC: Griselda Smith MD; Ondina Pop DO Technologist: Hodan Key(R); STUDENT T ECHNOLOGIST Trnscrd Date/Time/By: 08/22/2019 (2447) : By: [email or web address] Orig Print D/T: S: 08/22/2019 (9832) PAGE 1 Signed Report - XR CHEST 1 V 2019-08-22 13:43:00 FAX: Griselda Toure MD [phone] [place]: St: ADM FAX: Ondina Nova DO [phone] Name: WAYNE MCCARTNEY [facility] : 1930 Age/S: 89/M [address] Unit #: [id number] Loc: V.4032 [place] [address] Phys: Ondina Way DO Acct: [id number] Dis Date: Status: ADM IN PHONE #: [phone] Exam Date: 08/22/2019 1328 FAX #: [phone] Reason: S/P PPM INSERTION EXAMS: CPT CODE: [id number] XR CHEST 1 V 27001 REASON FOR EXAM: S/P PPM INSERTION Exam Order Date: 08/22/2019 1:17 PM Ordering M.D.: Ondina Nova DO PROCEDURE: - XR CHEST 1 V COMPARISON: Chest x-ray August 20, 2019 FINDINGS: There is subsegmental atelectasis in the left lung base. Remainder of the lungs are clear. Cardi omediastinal silhouette is normal in size for technique. The aorta is tort uous. There is been interval placement of a left subclavian biventricular pacemaker with leads in the right atrium, right ventricle, and left ventri mario. There are degenerative changes in the spine. Th e visualized upper abdomen is within normal limits. IMPR ESSION: No pneumothorax following placement of left subclavian biventric ular pacemaker. Lungs are clear other than mild subsegmental ate lectasis in the left lung base. Location: [facility] at 1343 Reported and signed by: Tyson Kamara MD CC: Griselda Smith MD; Ondina Pop DO Technologist: Hodan Key(R); STUDENT T ECHNOLOGIST Trnscrd Date/Time/By: 08/22/2019 (3057) : By: [email or web address] Orig Print D/T: S: 08/22/2019 (5337) PAGE 1 Signed Report BASIC METABOLIC [id number] 05:59:00* Test Item Value Reference Range Interpretation [...] CA) 8.7 mg/dL 8.5-10.1 N BASIC METABOLIC [id number] 05:54:00* Test Item Value Reference Range Interpretation [...] code = CA) mg/dL 8.5-10.1 CBC W/AUTO [id number] 05:23:00* Test Item Value Reference Range Interpretation [...] NRBC#) 0.00 K/mm3 0.0-0.1 N BASIC METABOLIC [id number] 05:12:00* Test Item Value Reference Range Interpretation [...] CA) 8.4 mg/dL 8.5-10.1 L BASIC METABOLIC [id number] 05:11:00* Test Item Value Reference Range Interpretation [...] CA) 8.4 mg/dL 8.5-10.1 L CBC W/AUTO [id number] 04:45:00* Test Item Value Reference Range Interpretation [...] (test code = MDIFF) NO CBC W/AUTO [id number] 04:33:00* Test Item Value Reference Range Interpretation [...] # (test code = BA#) K/mm3 0.0-0.2 [id number] 09:17:00* Test Item Value Reference Range Interpretation Comments PHOSPHORUS (test code = PHOS) 3.2 mg/dL 2.5-4.9 N THYROID STIMULATING [id number] 09:17:00* Test Item Value Reference Range Interpretation Comments THYROID STIMULATING HORMONE (test code = TSH) 3.080 uIU/mL 0.36-3.7 4 N TSH REFERENCE RANGES: EUTHYROID: 0.35 - 4.3 mIU/mL HYPO : > 5.5 mIU/mL HYPER : < 0.35 mIU/mL BASIC METABOLIC [id number] 09:17:00* Test Item Value Reference Range Interpretation [...] code = CA) 8.5 mg/dL 8.5-10.1 N [id number] 09:17:00* Test Item Value Reference Range Interpretation Comments MAGNESIUM (test code = MAG) 2.2 mg/dL 1.8-2.4 N [id number] 09:17:00* Test Item Value Reference Range Interpretation Comments TROPONIN-I (test code = TROPI) <0.015 ng/mL 0-0.045 N PROTHROMBIN [id number] 09:04:00* Test Item Value Reference Range Interpretation [...] (2.5-3.5) IS PATIENT ON ANTICOAGULANTS? NTHROMBOPLASTIN TIME [id number] 09:04:00* Test Item Value Reference Range Interpretation Comments THROMBOPLASTIN TIME PARTIAL (test code = PTT) 31.4 seconds 25.0-36. 5 N IS PATIENT ON ANTICOAGULANTS? NBASIC METABOLIC [id number] 09:04:00* Test Item Value Reference Range Interpretation [...] CALCIUM (test code = CA) mg/dL 8.5-10.1 [id number] 09:04:00* Test Item Value Reference Range Interpretation Comments MAGNESIUM (test code = MAG) mg/dL 1.8-2.4 [id number] 09:04:00* Test Item Value Reference Range Interpretation Comments TROPONIN-I (test code = TROPI) ng/mL 0-0.045 - XR CHEST 1 [id number] 09:02:00 FAX: Alivia Reddy [place]: B St: DIS Name: WAYNE GAITAN [facility] : [birth year] Age/S: 89/M [address] [facility] Unit #: [id number] Loc: V.5[address] [place] [address] Phys: Alivia Reddy DO Acct: [id number] Dis Date: [id number] Status: DIS IN PHONE #: [phone] Exam Date: 08/20/201953 FAX #: [phone] Reason: CHEST PAIN EXAMS: CPT CODE: [id number] XR CHEST 1 V 84314 HISTORY: CHEST PAIN TECHNIQUE: AP chest x-ray COMPARISON: None FINDINGS: No airspace consolidation or pleural effusion. Mild cardiomegaly. Tortuous thoracic aorta with vascular calcification. Thoracic spond ylosis. IMPRESSION: No radiographic ev idence of acute cardiopulmonary process. L OCATION: LP Electronically Signed by Saumya Tirado D.O. on at 0902 Reported and signed by: Saumya Tirado D.O. CC: Alivia Reddy DO Te chnologist: Donna LUCAS(R) Trnscrd Date/ Time/By: 08/20/2019 (901) : By: [email or web address] Orig Print D/T: S: 08/20/19 (904) PAGE 1 Signed Report - XR CHEST 1 [id number] 09:02:00 FAX: Alivia Reddy [facility]: B St: REG Name: WAYNE GAITAN [facility] : [birth year] Age/S: 89/M [place] Unit #: [id number] Loc: [place] [address] Phys: Alivia Reddy DO Acct: [id number] Dis Date: Status: REG ER PHONE #: [phone] Exam Date: 08/20/2019 0853 FAX #: [phone] Reason: CHEST PAIN EXAMS: CPT CODE: [id number] XR CHEST 1 V 38653 HISTORY: CHEST PAIN TECHNIQUE: AP chest x-ray [...] By: [email or web address] Orig Print D/T: S: 08/20/19 (904) PAGE 1 Signed Report CBC W/O [id number] 09:00:00* Test Item Value Reference Range Interpretation [...] MPV) 11.1 fL 6.7-11.0 H MODIFIED BA. [id number] 12:35:00 [place] [address] Patient Name: WAYNE MCCARTNEY MR #: [id number] : 1930 Age/Sex: 88/M Req #: [id number] Adm Physician: Ordered by: MARTINE JACOBSEN Report #: [id number] Location: DX Room/Bed: Procedure: [id number] DX /MODIFIED BA. SWALLOW Exam Date: 03/15/19 [...] of laryngeal penetration and no aspiration. CONCLUSION: Modifi ed barium swallow demonstrating one episode of laryngeal penetration and no as piration. Please refer to the speech pathology report for further details. Signed by: Hung Talley MD on 03/20/2019 12:38 PM Dictated By: HUNG Burrows 1238 Transcribed By: JOI CADET on 03/20/19 1238 COPY TO: MARTINE JACOBSEN MODIFIED BA. [id number] 08:45:00 [place] [id number] [place] [address] Patient Name: WAYNE MCCARTNEY MR #: [id number] : 1930 Age/Sex: 88/M Req #: [id number] Adm Physician: Ordered by: MARTINE JACOBSEN Report #: [id number] Location: DX Room/Bed: Procedure: [id number] DX/M ODIFIED BA. SWALLOW Exam Date: 02/10/19 [...] AM Di ctated By: HUNG TALLEY MD 08 45 Transcribed By: ELAYNE on 02/13/19 0845 COPY TO: MARTINE JACOBSEN MODIFIED BA. [id number] 13:40:00 [place] [address] Patient Name: WAYNE MCCARTNEY MR #: [id number] : 1930 Age/Sex: 88/M Req #: [id number] Adm Physician: Ordered by: STRAR BANUELOS MD Report #: [id number] Location: DX Room/Bed: Procedure: DX/MODIFIED BA. SWALLOW Exam Date: 01/03/19 Exam [...] 1340 COPY TO: STARR BANUELOS MD CHEM [id number] 16:05:000.7[facility] [id number] 16:05:0087[facility]
[2020-02-10 14:06] LABS: BASOPHILS % 0.6 % (0.0-1.0); EOSINOPHILS % 0.8 % (0.0-6.0); HEMOGLOBIN 13.4 g/dL (14.0-18.0); LYMPHOCYTES # (AUTO) 0.5 (1.0-3.2); LYMPHOCYTES % 9.8 % (18.0-39.1); MEAN CORPUSCULAR HEMOGLOBIN 32.8 pg (28-32); MEAN CORPUSCULAR HGB CONC 33.5 g/dL (31-35); MEAN CORPUSCULAR VOLUME 97.8 fL (81-99); MONOCYTES # (AUTO) 0.6 (0.2-0.8); MONOCYTES % 11.1 % (4.4-11.3); NEUTROPHILS # (AUTO) 4.1 (2.1-6.9); NEUTROPHILS % 77.1 % (38.7-80.0); PLATELET COUNT 304 x10e3/uL (140-360); RED BLOOD COUNT 4.09 x10e6/uL (4.3-5.7); RED CELL DISTRIBUTION WIDTH 12.4 % (11.7-14.4)
[2020-02-10 14:17] LABS: INR 1.17; PARTIAL THROMBOPLASTIN TIME 37.5 seconds (23.8-35.5); PROTHROMBIN TIME 15.6 seconds (11.9-14.5)
[2020-02-10 14:27] LABS: ALANINE AMINOTRANSFERASE 6 IU/L (0-55); ALBUMIN 3.4 g/dL (3.5-5.0); ALBUMIN/GLOBULIN RATIO 1.3 (0.8-2.0); ALKALINE PHOSPHATASE 104 IU/L (40-150); ANION GAP 14.8 mmol/L (8-16); BLOOD UREA NITROGEN 16 mg/dL (7-26); BUN/CREATININE RATIO 19 (6-25); CALCIUM 8.6 mg/dL (8.4-10.2); CARBON DIOXIDE 27 mmol/L (22-29); CHLORIDE 99 mmol/L (98-107); CREATINE KINASE 148 IU/L (30-200); CREATININE, SERUM 0.85 mg/dL (0.72-1.25); EST GLOMERULAR FILTRATION RATE > 60 ML/MIN (60-); GLUCOSE 157 mg/dL (74-118); POTASSIUM 3.8 mmol/L (3.5-5.1); SODIUM 137 mmol/L (136-145)
[2020-02-10 14:29] LABS: CLARITY,URINE CLEAR (CLEAR); COLOR,URINE YELLOW (YELLOW); LEUKOCYTE ESTERASE ,URINE NEGATIVE (NEGATIVE); NITRITE,URINE NEGATIVE (NEGATIVE); PROTEIN,URINE DIPSTICK NEGATIVE (NEGATIVE)
[2020-02-10 14:30] LABS: BILIRUBIN,URINE NEGATIVE (NEGATIVE); KETONES,URINE TRACE (NEGATIVE); URINE UROBILINOGEN 0.2 mg/dL (0.2 - 1)
[2020-02-10 14:33] LABS: OCCULT BLOOD STOOL NEGATIVE (NEGATIVE)
[2020-02-10 14:51] LABS: BACTERIA,URINE FEW /HPF; EPITHELIAL CELLS,URINE FEW /LPF; WBC,URINE (MAN) 0-5 /HPF (0-5)
[2020-02-10 14:52] LABS: MUCUS,URINE MODERATE (RARE)
[2020-02-10 15:16] LABS: C DIFFICILE TOXIN A&B AMP PROB NEGATIVE (NEGATIVE)
[2020-02-10] MEDS ORDERED: CARBIDOPA/LEVODOPA 25/100 TAB PO ONE (15:18)
--- NOTE | 2020-02-10 15:31 | Diagnostic Imaging Report ---
Exam: Head CT without contrast History: Syncope Comparison studies: None Technique: Axial images were obtained from the skull base to the vertex. Coronal and sagittal images reconstructed from the axial data. Dose modulation, iterative reconstruction, and/or weight based adjustment of the mA/kV was utilized to reduce the radiation dose to as low as reasonably achievable. Radiation dose: Total DLP: 1036.57 mGy*cm. Estimated effective dose: DLP x 0.015 Intravenous contrast: None Findings: Scalp: No abnormalities. Bones: No fractures, blastic or lytic lesions. Brain sulci: Mildly prominent. Ventricles: Moderate compensatory dilatation. No hydrocephalus. Extra-axial spaces: No masses, no fluid collection. Parenchyma: No mass, acute hemorrhage or acute cortical insults. 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 Unchanged ill-defined and confluent hypodensities in the supratentorial white matter are nonspecific but are most compatible with chronic microvascular ischemic changes. Sellar/suprasellar region: No abnormalities. Craniocervical junction: Patent foramen magnum. No Chiari one malformation. Incidental findings: Bilateral intraocular lens replacements. Atherosclerotic calcifications in the carotid siphons an in the intradural vertebral arteries. IMPRESSION: No acute intracranial abnormalities. Chronic findings: 1. Moderate generalized cerebral volume loss. 2. 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 Signed by: Dr. Nikko Victoria M.D. on 02/10/2020 3:28 PM
--- NOTE | 2020-02-10 15:43 | Diagnostic Imaging Report ---
EXAMINATION: PELVIS AP 1-2 VIEWS INDICATION: Postoperative COMPARISON: 01/30/2020. FINDINGS: No acute displaced fracture. Foreshortening of the right femoral neck is felt to be related to positioning. Redemonstration of status post left proximal femur ORIF with 3 partially threaded screws. No displaced fracture. Degenerative changes of the hip joints bilaterally. Degenerative changes of the SI joints bilaterally. Degenerative changes of the lower lumbar spine. IMPRESSION: status post ORIF of the left proximal femur with intact hardware. No displaced acute fracture. Signed by: Dr. Tyra Chen M.D. on 02/10/2020 3:39 PM
--- NOTE | 2020-02-10 15:44 | Emergency Department Note ---
History of Present Illnes History of Present Illness Chief Complaint: General Medicine Complaints History of Present Illness This is a 89 year old male ARRIVED VIA [facility] FOR [facility] WHILE SITTING EATING LUNCH AT [facility]; PLACED ON THE MONITOR AND IN A GOWN. 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: SEE EMS REPORT Round Up Ring Hand Required: No Onset (how long ago): minute(s) Location: [facility] Radiation: Reports non-radiation Severity: moderate Onset quality: sudden (PER NURSES AT [facility] WAS UNRESPONSIVE FOR A COUPLE MINS, NO SZ ACTIVITY, NO POST-ICTAL STATE) Timing of current episode: sporadic Progression: resolved Chronicity: new Context: Reports recent surgery Relieving factors: none Exacerbating factors: none Associated symptoms: Reports other (DIARRHEA) Treatments prior to arrival: none Past Medical/Family History Physician Review I have reviewed the patient's past medical and family history. Any updates have been documented here. Past Medical History Recent Fever: No Clinical Suspicion of Infectio: No New/Unexplained Change in Ment: No Past Medical History: Hypertension, CHF Other Medical History: Parkinsons, Pacemaker Past Surgical History: Pacer/AICD Social History Smoking Cessation: Never Smoker Counseling Performed: No Alcohol Use: None Any Illegal Drug Use: No TB Exposure/Symptoms: No Physically hurt or threatened: No Family History Family history of heart diseas: No Other Any Pre-Existing Lines (PICC,: No Review of Systems Review of Systems Constitutional: Reports no symptoms EENTM: Reports no symptoms Cardiovascular: Reports as per HPI, Reports syncope Respiratory: Reports no symptoms Gastrointestinal: Reports no symptoms Genitourinary: Reports no symptoms Musculoskeletal: Reports no symptoms Integumentary: Reports no symptoms Neurological: Reports no symptoms Psychological: Reports no symptoms Endocrine: Reports no symptoms Hematological/Lymphatic: Reports no symptoms Physical Exam Related Data Allergies: Coded Allergies: No Known Allergies (Unverified , 01/16/20) Triage Vital Signs Vital Signs Date Time Temp Pulse Resp B/P (MAP) Pulse Ox O2 Delivery O2 Flow Rate FiO2 02/10/20 13:20 95/63 02/10/20 13:20 98.3 80 16 98 Room Air Vital signs reviewed: Yes Physical Exam CONSTITUTIONAL Constitutional: Present well-developed, Present well-nourished HENT HENT: Present normocephalic, Present atraumatic, Present mucosae dry, Present nose normal HENT L/R: Present left ext ear normal, Present right ext ear normal EYES Eyes: Reports PERRL, Reports conjunctivae normal NECK Neck: Present ROM normal PULMONARY Pulmonary: Present effort normal, Present breath sounds normal CARDIOVASCULAR Cardiovascular: Present regular rhythm, Present heart sounds normal, Present capillary refill normal, Present normal rate GASTROINTESTINAL Abdominal: Present soft, Present nontender, Present bowel sounds normal GENITOURINARY Genitourinary: Present exam deferred SKIN Skin: Present warm, Present dry MUSCULOSKELETAL Musculoskeletal: Present ROM normal NEUROLOGICAL Neurological: Present alert, Present oriented x 3, Present no gross motor or sensory deficits PSYCHOLOGICAL Psychological: Present mood/affect normal, Present judgement normal Results Laboratory Result Diagram: 02/10/20 1322 02/10/20 1322 Laboratory Laboratory Tests Test 02/10/20 14:42 02/10/20 13:58 02/10/20 13:22 Urine Color Yellow (YELLOW) Urine Clarity Clear (CLEAR) Urine pH 6.5 (5 - 7) Urine Specific [place] 1.020 (1.010-1.025) Urine Protein Negative (NEGATIVE) Urine Glucose (UA) Negative (NEGATIVE) Urine Ketones Trace (NEGATIVE) Urine Blood Negative (NEGATIVE) Urine Nitrite Negative (NEGATIVE) Urine Bilirubin Negative (NEGATIVE) Urine Urobilinogen 0.2 mg/dL (0.2 - 1) Urine Leukocyte Esterase Negative (NEGATIVE) Urine RBC None /HPF (0-5) Urine WBC 0-5 /HPF (0-5) Urine Epithelial Cells Few /LPF (NONE) Urine Bacteria Few /HPF (NONE) Urine Mucus Moderate (RARE) Stool Occult Blood Negative (NEGATIVE) Clostridium Difficile Toxin A & B Negative (NEGATIVE) White Blood Count 5.31 x10e3/uL (4.8-10.8) Red Blood Count 4.09 x10e6/uL (4.3-5.7) Hemoglobin 13.4 g/dL (14.0-18.0) Hematocrit 40.0 % (38.2-49.6) Mean Corpuscular Volume 97.8 fL (81-99) Mean Corpuscular Hemoglobin 32.8 pg (28-32) Mean Corpuscular Hemoglobin Concent 33.5 g/dL (31-35) Red Cell Distribution Width 12.4 % (11.7-14.4) Platelet Count 304 x10e3/uL (140-360) Neutrophils (%) (Auto) 77.1 % (38.7-80.0) Lymphocytes (%) (Auto) 9.8 % (18.0-39.1) Monocytes (%) (Auto) 11.1 % (4.4-11.3) Eosinophils (%) (Auto) 0.8 % (0.0-6.0) Basophils (%) (Auto) 0.6 % (0.0-1.0) Neutrophils # (Auto) 4.1 (2.1-6.9) Lymphocytes # (Auto) 0.5 (1.0-3.2) Monocytes # (Auto) 0.6 (0.2-0.8) Eosinophils # (Auto) 0.0 (0.0-0.4) Basophils # (Auto) 0.0 (0.0-0.1) Absolute Immature Granulocyte (auto 0.03 x10e3/uL (0-0.1) Prothrombin Time 15.6 seconds (11.9-14.5) Prothromb Time International Ratio 1.17 Activated Partial Thromboplast Time 37.5 seconds (23.8-35.5) Sodium Level 137 mmol/L (136-145) Potassium Level 3.8 mmol/L (3.5-5.1) Chloride Level 99 mmol/L (98-107) Carbon Dioxide Level 27 mmol/L (22-29) Anion Gap 14.8 mmol/L (8-16) Blood Urea Nitrogen 16 mg/dL (7-26) Creatinine 0.85 mg/dL (0.72-1.25) Estimat Glomerular Filtration Rate > 60 ML/MIN (60-) BUN/Creatinine Ratio 19 (6-25) Glucose Level 157 mg/dL (74-118) Calcium Level 8.6 mg/dL (8.4-10.2) Magnesium Level 2.0 MG/DL (1.3-2.1) Total Bilirubin 0.7 mg/dL (0.2-1.2) Aspartate Amino Transf (AST/SGOT) 30 IU/L (5-34) Alanine Aminotransferase (ALT/SGPT) 6 IU/L (0-55) Alkaline Phosphatase 104 IU/L (40-150) Creatine Kinase 148 IU/L (30-200) Creatine Kinase MB 1.90 ng/mL (0-5.0) Troponin I 0.004 ng/mL (0-0.300) Total Protein 6.0 g/dL (6.5-8.1) Albumin 3.4 g/dL (3.5-5.0) Globulin 2.6 g/dL (2.3-3.5) Albumin/Globulin Ratio 1.3 (0.8-2.0) Lab results reviewed: Yes Imaging Imaging results reviewed: Yes Procedures 12 Lead ECG Interpretation ECG Interpretation : ECG: ECG 1 Round Up Ring Hand: Interpreted by ED physician Date: Feb 10, 2020 Time: 13:22 Rhythm: paced (CONTINUOUS VENTRIC PACED) Rate: normal (77) QRS axis: left ST segments normal: Yes T waves normal: Yes Clinical Impression: abnormal ECG Assessment & Plan Medical Decision Making MDM SYNCOPE - CHECK CBC, CHEM, ECG, CARDIACS, UA, CX'S - R/O STEMI/NSTEMI, D YSRHYTHMIA, ELECTROLYTE ABNL, UTI Reassessment Reassessment ADMIT TO DR CADET Assessment & Plan Final Impression: (1) Syncope Depart Disposition: ADMITTED Last Vital Signs Date Time Temp Pulse Resp B/P (MAP) Pulse Ox O2 Delivery O2 Flow Rate FiO2 02/10/20 14:20 85 16 102/65 96 Room Air 02/10/20 13:20 98.3 Home Meds Reported Medications Polyethylene Glycol 3350 (MIRALAX) 17 Gm Powd.pack, 17 GM PO DAILY, GM 01/28/20 Ibuprofen (ADVIL) 100 Mg Tab.chew, 650 MG PO PRN 01/28/20 Multivitamin (MULTI-VITAMIN DAILY) 1 Each Tablet, PO 01/28/20 Furosemide (FUROSEMIDE) 40 Mg Tablet, 40 MG PO Daily, #30 TAB 01/28/20 Tamsulosin Hcl* (FLOMAX*) 0.4 Mg Cap, 0.4 MG PO HS, #30 CAP 01/28/20 Naproxen (NAPROXEN) 250 Mg Tablet, 500 MG PO BID, TAB 01/28/20 Donepezil Hcl (DONEPEZIL HCL) 5 Mg Tablet, 5 MG SL DAILY 01/28/20 Aspirin (ASPIRIN) 81 Mg Tab.chew, 81 MG PO DAILY 01/28/20 Carbidopa/Levodopa (SINEMET 25-100 MG TABLET) 1 Each Tablet, 3 TAB PO TID, #90 TAB 3 tablets at 6:00 AM before breakfast 3 tablets at 1:00 pm 3 tablets at 5:00 pm 1 tablet at 9:00 PM 01/28/20 Medications in the ED Sodium Chloride 1,000 ml @ 0 mls/hr Q0M STAT IV Last administered on 02/10/20at 14:00; Admin Dose 999 MLS/HR; Start 02/10/20 at 13:20; Stop 02/10/20 at 13:21 Carbidopa/Levodopa 1 ea QID PO ; Start 02/10/20 at 18:00; Stop 03/11/20 at 17:59 Carbidopa/Levodopa 1 ea NOW ONCE PO ; Start 02/10/20 at 15:18; Stop 02/10/20 at 15:19 KEITH ORLANDO MD Feb 10, 2020 15:44
--- NOTE | 2020-02-10 15:45 | Diagnostic Imaging Report ---
EXAMINATION: CHEST SINGLE (PORTABLE) INDICATION: ^[facility]NCOPE ^[id number] ^[id number] COMPARISON: 01/28/2020. 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 LUNGS/PLEURA: Lungs are well inflated. There are bilateral interstitial opacities, consistent with pulmonary edema.. There is no pleural effusion or pneumothorax. HEART AND MEDIASTINUM: Cardiac size is mildly enlarged. BONES AND SOFT TISSUES: No acute osseous lesion. UPPER ABDOMEN: No free air under the diaphragm. IMPRESSION: No acute thoracic abnormality. Signed by: Dr. Tyra Chen M.D. on 02/10/2020 3:41 PM
--- OUTSIDE RECORDS SUMMARY | 2020-02-10 16:05 | XMS REPORT | Continuity of Care Document ---
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 [facility] Pathology Reports No Data Provided for This [...] Moderate atherosclerotic disease of the aorta. 11/11/2015 [facility] Consultation Notes No Data Provided for This Section Discharge Summaries No Data Provided for This Section History and Physicals No Data Provided for This Section Vital Signs No Data Provided for This Section Encounters Location Location Details Encounter Type Encounter Number Reason For Visit Attending Provider ADM Date DC Date Status Source [facility] [id number] Yareli Barker 11/11/2015 11/12/2015 [facility] [place] [facility] [id number] Mil Brito 08/17/2016 09/16/2016 [facility] [place] [facility] [id number] [place] 09/01/2016 10/01/2016 [facility] [place] [facility] [id number] Mil Brito 09/17/2016 10/17/2016 [facility] [place] [facility] [id number] [place] 10/01/2016 10/31/2016 [facility] [place] [facility] [id number] Mil Brito 10/20/2016 11/19/2016 [facility] [place] Out[facility] [id number] NURSE VISIT 08/07/2019 Active [facility] [place] [facility] Pre-Reg [id number] NURSE VISIT 08/07/2019 08/07/2019 Medical Group [facility] [place] Phone Message [phone] 08/18/19 20 08/20/2019 Medical Group Procedures No Data Provided for This Section Assessment and Plan No Data Provided for This Section Plan of Care No Data Provided for This Section Social History Social History Date Source No data available for this section 08/20/2019 [facility] Group No data available for this section 11/19/2016 [facility] [place] No data available for this section 10/31/2016 [facility] No data available for this section 11/12/2015 [facility] Family History No Data Provided for This Section Advance Directives No Data Provided for This Section Functional Status No Data Provided for This Section
--- OUTSIDE RECORDS SUMMARY | 2020-02-10 16:06 | XMS REPORT | Continuity of Care Document ---
Author Author [facility] Organization [facility] Address [address] [place] [address] Phone Unavailable Care Team Providers Care Licensed Architect Name Role Phone Marc JACOBSEN PCP Narciso ORLANDO Attphys Unavailable JOSÉ MIGUEL CADET Attphys Unavailable Marc JACOBSEN Attphys Unavailable SAHIL CADET Attphys Unavailable Jeannette HUYNH, Tyrell Attphys [facility] Attphys Unavailable STARR BANUELOS Attphys Unavailable Amira Moise Attphys [place] Attphys Lars Barker Attphys JOSÉ MIGUEL CADET Admphys Unavailable Payers Payer Name Policy Type Policy Number Effective Date Expiration Date Christa Michael [facility] Care [id number] 2011 00:00:00 C [facility] Medicare A & B [id number] 1996 00:00:00 C [facility] Problems Condition Name Condition Details Condition Category Status Onset Date Resolution Date Last Treatment Date Treating Clinician Comments Source RIGHT KNEE AND BALANCE NOEMÍ Ella KNEE AND BALANCE Active 08/04/2016 [facility] [place] Diagnosis Active 2016-08-04 08:00:00 2016-10-20 11:52:00 [facility] RT KNEE AND BALANCE RT K NEE AND BALANCE Active 07/17/2016 [facility] [place] Diagnosis Active 2016-07-17 08:00:00 2016-09-17 14:55:[facility]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, WIT AORTIC AN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, 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 [facility] Diagnosis Active 2015-10-11 00:00:00 2015-11-11 10:03:00 [facility] PARKINSON PARK INSON Active 07/05/2000 [facility] Diagnosis Active 2000-07-05 08:00:00 2016-10-01 15:44:00 [facility] Pain of left thigh Problem Active [facility] Fracture of neck of left femur Problem Active [facility] Fall Problem Active [facility] Allergies, Adverse Reactions, Alerts Allergy Name Allergy Type Status Severity Reaction(s) Onset Date Inacti ve Date Treating Clinician Comments Source No Known Allergies DA Active U 2019-08-20 00:00:00 [facility] Social History Social Habit Start Date Stop Date Quantity Comments Source Social History 2015-11-12 04:59:00 2015-11-12 04:59:00 [facility] [place] Sex Assigned At 1930 00:00:00 1930 00:00:00 Male [facility] Medications Ordered Medication Name Filled Medication Name Start Date Stop Da te Current Medication? Ordering Clinician Indication Dosage Frequency Signature (SIG) Comments Components Source Aspirin Aspirin Yes 81 Daily [facility] Carbidopa/Levodopa (Sinemet 25-100 Mg Tablet) 1 Each T ABLET Carbidopa/Levodopa (Sinemet 25-100 Mg Tablet) 1 Each TABLET Yes 3 Three Times A Day [facility] Donepezil Hcl Donepezil Hcl Yes 5 Daily [facility] Furosemide Furosemide Yes 40 Daily [facility] Ibuprofen (Advil) 100 Mg TAB.CHEW Ibuprofen (Advil) 100 Mg TAB.CHEW Yes 650 As Needed [facility] Multivitamin (Multi-Vitamin Daily) 1 Each TABLET Multi vitamin (Multi-Vitamin Daily) 1 Each TABLET Yes [facility] Naproxen Naproxen Yes 500 Twice A Day [facility] Polyethylene Glycol 3350 (Miralax) 17 Gm POWD.PACK Ernst yethylene Glycol 3350 (Miralax) 17 Gm POWD.PACK Yes 17 Daily [facility] Tamsulosin Hcl (Flomax*) 0.4 Mg CAP Tamsulosin Hcl (Flomax*) 0.4 Mg C AP Yes .4 Bedtime [facility] Vital Signs Vital Name Observation Time Observation Value Comments Source Body Temperature 2020-02-05 11:27:00 99.4 [degF] [facility] Weight 2020-02-04 08:09:00 177 [lb_av] [facility] BMI (Body Mass Index) 2020-02-04 08:09:00 26.1 kg/m2 [facility] Procedures Procedure Date / Time Performed Performing Clinician [facility] e Computed tomography of brain without radiopaque contrast 2020-01 00:00:00 [facility] Computed tomography of cervical spine without contrast 2020-01-04 6 00:00:00 [facility] X-ray of chest, single view 2020-01-28 00:00:00 [facility] Encounters Start Date/Time End Date/Time Encounter Type Admission Type [facility] Care Department Encounter ID Source 2020-01-28 11:22:00 2020-02-05 15:09:00 Discharged Inpatient 1 JOSÉ MIGUEL CADET [facility] [id number] [facility] 2020-01-26 09:52:00 2020-01-26 09:52:00 Registered Clinic 3 MARTINE JACOBSEN [facility] [id number] [facility] 2020-01-16 20:00:00 2020-01-16 22:15:00 Departed Emergency Room SAHIL CADET [facility] [id number] [facility] 2020-01-04 10:51:08 2020-01-04 13:54:57 Office Visit Tyrell Collier [facility] [id number] 2019-08-18 15:53:01 2019-08-19 23:59:59 [facility]patient [facility] [id number] 2019-08-07 08:30:00 2019-08-07 08:30:00 [facility] [id number] 2019-03-13 09:53:00 2019-04-03 23:59:[address] [facility] [id number] [facility] 2019-03-15 09:29:00 2019-03-15 09:29:00 Registered Clinic [address] [facility] [id number] [facility] 2019-02-03 10:08:00 2019-03-04 23:59:[address] [facility] [id number] [facility] 2019-02-10 10:09:00 2019-02-10 10:09:00 Registered Clinic [address] [facility] [id number] [facility] 2019-01-12 09:48:00 2019-02-01 23:59:[address] [facility] [id number] [facility] 2019-01-03 11:32:00 2019-01-03 11:32:00 Registered Clinic [address] [facility] [id number] [facility] 2016-10-20 11:45:00 2016-11-18 23:59:00 Outpatient Mil Moise [id number] 2016-10-01 08:00:00 2016-10-30 23:59:00 Outpatient [place] [facility] [id number] 2016-09-17 14:52:00 2016-10-16 23:59:00 Outpatient Mil Moise Amira [id number] 2016-09-01 08:00:00 2016-09-30 23:59:00 Outpatient [place] [facility] [id number] 2016-08-17 09:30:00 2016-09-15 23:59:00 Outpatient Mil Moise [id number] 2015-11-11 09:52:00 2015-11-11 23:59:00 Outpatient Radha Barker [facility] [id number] Results Test Description Test Time Test Comments Results Result Comments Source CHEST SINGLE (PORTABLE) 2020-02-10 15:39:00 [place] [address] Patient Name: WAYNE MCCARTNEY MR #: [id number] : 1930 Age/Sex: 89/M Req #: [id number] Adm Physician: Ordered by: KEITH ORLANDO MD Report #: [id number] Location: ER Room/Bed: Procedure: [id number] DX/CHEST SINGLE (PORTABLE) Exam Date: 02/10/20 Exam Time: 1510 REPORT STATUS: Signed EXAMINATION: CHEST SINGLE (PORTABLE) INDICATION: SYNCOPE 20200210 COMPARISON: 01/28/2020. 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 LUNGS/PLEURA: Lungs are well inflated. The re are bilateral interstitial opacities, consistent with pulmonary edema.. There is no pleural effusion or pneumothorax. HEART AND MEDIASTINUM: Cardiac size is mildly enlarged. BONES AND SOFT TISSUES: No acute osseous lesion. UPPER ABDOMEN: No free air under the diaphragm. IMPRESSION: No acute thoracic abnormality. Signed by: Dr. Tyra Fatima M.D. on 02/10/2020 3:41 PM Dictated By: WINSOME FATIMA MD, MD 40 Transcribed By: ELAYNE on 02/10/201540 COPY TO: KEITH ORLANDO MD PELVIS AP 1-2 VIEWS 2020-02-10 15:37:00 [place] [address] Patient Name: WAYNE MCCARTNEY MR #: [id number] : 1930 Age/Sex: 89/M Req #: [id number] Adm Physician: Ordered by: KEITH ORLANDO MD Report #: [id number] Location: ER Room/Bed: Procedure: [id number] DX/PELVIS AP 1-2 VIEWS Exam Date: 02/10/20 Exam Time: 1509 REPORT STATUS: Signed EXAMINATION: PELVIS AP 1-2 VIEWS INDICATION: Postoperative COMPARISON: 01/30/2020. FINDINGS: No acute displaced fracture. Foreshortening of the right femoral neck is felt to be related to positioning. Redemonstration of status post left p roximal femur ORIF with 3 partially threaded screws. No displaced fracture. Degenerative changes of the hip joints bilaterally. Degenerative changes of the SI joints bilaterally. Degenerative changes of the lower lumbar spine. IMPRESSION: status post ORIF of the left proximal femur with intact hardware. No displaced acute fracture. Signed by: Dr. Tyra Fatima M.D. on 02/10/2020 3:39 PM Dictated By: WINSOME FATIMA MD, MD 38 Transcribed By: ELAYNE on 02/10/201538 COPY TO: KEITH ORLANDO MD CT BRAIN WO 2020-02-10 15:23:00 [place] [address] Patient Name: WAYNE MCCARTNEY MR #: [id number] : 1930 Age/Sex: 89/M Req #: [id number] Adm Physician: Ordered by: KEITH ORLANDO MD Report #: [id number] Location: ER Room/Bed: Procedure: [id number] CT/CT BRAIN WO Exam Date: 02/10/20 Exam Time: 1500 REPORT STATUS: Signed Exam: Head CT without contrast History: Syncope Comparison studies: None Technique: Axial images were obtained from the skull base to the vertex. Coronal and sagittal images reconstructed from the axial data. Dose modulation, iterative reconstruction, and/or weight based adjustment of the mA/kV was utilized to reduce the radiation dose to as low as reasonably achievable. Radiation dose: Total DLP: 1036.57 mGy*cm. Estimated effective dose: DLP x 0.015 Intravenous contrast: None Findings: Scalp: No abnormalities. Bones: No fractures, blastic or lytic lesions. Brain sulci: Mildly prominent. Ventricles: Moderate compen satory dilatation. No hydrocephalus. Extra-axial spaces: No masses, no fluid collection. Parenchyma: No mass, acute hemorrhage or acute cortical insults. 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 Unchanged ill-defined and confluent hypodensities in the supratentorial white matter are nonspecific but are most compatible with chronic microvascular ischemic changes. Sellar/suprasellar region: No abnormalities. Craniocervical junction: Patent foramen magnum. No Chiari one malformation. Incidental findings: Bilateral intraocular lens replacements. Atherosclerotic calcifications in the carotid siphons an in the intradural vertebral arteries. IMPRESSION: No acute intracranial abnormalities. Chronic findings: 1. Moderate generalized cerebral volume loss. 2. 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 Signed by: Dr. Elpidio Zuniga M.D. on 02/10/2020 3:28 PM Dictated By: ELPIDIO ZUNIGA MD 1528 Transcribed By: ELAYNE on 02/10/20 1528 COPY TO: KEITH ORLANDO MD Blood leukocytes automated count (number/volume) 2020-02-04 05:05:00 Test Item White Blood Count (test code = 6690-2) 6.73 4.8-10.8 [facility] erythrocytes automated count (number/volume)2020-02-04 05:05:00* Test Item Value Reference Range Interpretation Comments Red Blood Count (test code = 789-8) 4.09 4.3-5.7 [facility] measurement (moles/volume)2020-02-04 05:05:00* Test Item Value Reference Range Interpretation Comments Hemoglobin (test code = 09962-2) 13.4 14.0-18.0 [facility] blood hematocrit (volume fraction)2020-02-04 05:05:00* Test Item Value Reference Range Interpretation Comments Hematocrit (test code = 4544-3) 39.9 38.2-49.6 [facility] erythrocyte mean corpuscular uewrjd7282-41-79 05:05:00* Test Item Value Reference Range Interpretation Comments Mean Corpuscular Volume (test code = 787-2) 97.6 81-99 [facility] mean corpuscular hemoglobin (mass per erythrocyte)2020-02-04 05:05:00* Test Item Value Reference Range Interpretation Comments Mean Corpuscular Hemoglobin (test code = 785-6) 32.8 28-32 [facility] erythrocyte mean corpuscular hemoglobin concentration measurement (mass/volume)2020-02-04 05:05:00* Test Item Value Reference Range Interpretation Comments Mean Corpuscular Hemoglobin Concent (test code = 786-4) 33.6 31-35 [facility] HospitalRDW CvsCf-Cgh5645-41-02 05:05:00* Test Item Value Reference Range Interpretation Comments Red Cell Distribution Width (test code = 03685-5) 12.6 11.7 -14.4 [facility] platelet count (count/volume)2020-02-04 05:05:00* Test Item Value Reference Range Interpretation Comments Platelet Count (test code = 777-3) 285 140-360 [facility] blood segmented neutrophil count as percentage of total vgskuyiosr9798-94-02 05:05:00* Test Item Value Reference Range Interpretation Comments Neutrophils (%) (Auto) (test code = 65562-5) 70.0 38.7-80.0 [facility] Hospital[facility] lymphocyte count as percentage ot total rntcwfmmqx5515-85-98 05:05:00* Test Item Value Reference Range Interpretation Comments Lymphocytes (%) (Auto) (test code = 736-9) 15.3 18.0-39.1 [facility] Hospital[facility] blood monocyte count as percentage of total ljweaekzdw8458-01-38 05:05:00* Test Item Value Reference Range Interpretation Comments Monocytes (%) (Auto) (test code = 5905-5) 11.7 4.4-11.3 [facility] Hospital[facility] blood eosinophil count as percentage of total ezlulsnfbo5490-18-07 05:05:00* Test Item Value Reference Range Interpretation Comments Eosinophils (%) (Auto) (test code = 713-8) 1.8 0.0-6.0 [facility] blood basophil count as percentage of total boprumqcto6017-33-64 05:05:00* Test Item Value Reference Range Interpretation Comments Basophils (%) (Auto) (test code = 706-2) 0.6 0.0-1.0 [facility] HospitalFluoroscopic procedure less than one hour wivvojox4071-34-51 05:05:00* Test Item Value Reference Range Interpretation Comments IM GRANULOCYTES % (test code = IM GRANULOCYTES %) 0.6 0.0- 1.0 [facility] Hospital[facility] blood neutrophil count 2020-02-04 05:05:00* Test Item Value Reference Range Interpretation Comments Neutrophils # (Auto) (test code = 751-8) 4.7 2.1-6.9 [facility] lymphocytes count (number/volume) 2020-02-04 05:05:00* Test Item Value Reference Range Interpretation Comments Lymphocytes # (Auto) (test code = 47937-0) 1.0 1.0-3.2 [facility] monocytes automated count (number/volume)2020-02-04 05:05:00* Test Item Value Reference Range Interpretation Comments Monocytes # (Auto) (test code = 742-7) 0.8 0.2-0.8 [facility] HospitalAutom[facility] blood eosinophil count 2020-02-04 05:05:00* Test Item Value Reference Range Interpretation Comments Eosinophils # (Auto) (test code = 711-2) 0.1 0.0-0.4 [facility] HospitalAutom[facility] blood basophil count (count/volume)2020-02-04 05:05:00* Test Item Value Reference Range Interpretation Comments Basophils # (Auto) (test code = 704-7) 0.0 0.0-0.1 [facility] HospitalFluoroscopic procedure less than one hour jrozcflu5231-57-31 05:05:00* Test Item Value Reference Range Interpretation Comments Absolute Immature Granulocyte (auto (kia t code = Absolute Immature Granulocyte (auto) 0.04 0-0.1 [facility] sodium measurement (moles/volume)2020-02-04 05:05:00* Test Item Value Reference Range Interpretation Comments Sodium Level (test code = 2951-2) 137 136-145 [facility] potassium measurement (moles/volume)2020-02-04 05:05:00* Test Item Value Reference Range Interpretation Comments Potassium Level (test code = 2823-3) 4.0 3.5-5.1 [facility] plasma chloride measurement (moles/volume)2020-02-04 05:05:00* Test Item Value Reference Range Interpretation Comments Chloride Level (test code = 2075-0) 101 98-107 [facility] or plasma carbon dioxide, total measurement (moles/volume)2020-02-04 05:05:00* Test Item Value Reference Range Interpretation Comments Carbon Dioxide Level (test code = 2028-9) 27 22-29 [facility] or plasma anion liz6698-62-20 05:05:00* Test Item Value Reference Range Interpretation Comments Anion Gap (test code = 20954-1) 13.0 8-16 [facility] plasma urea nitrogen measurement (mass/volume)2020-02-04 05:05:00* Test Item Value Reference Range Interpretation Comments Blood Urea Nitrogen (test code = 3094-0) 16 7-26 [facility] plasma creatinine measurement (mass/volume)2020-02-04 05:05:00* Test Item Value Reference Range Interpretation Comments Creatinine (test code = 2160-0) 0.70 0.72-1.25 [facility] plasma urea nitrogen/creatinine mass uiovi1823-62-91 05:05:00* Test Item Value Reference Range Interpretation Comments BUN/Creatinine Ratio (test code = 3097-3) 23 6-25 [facility] HospitalEstimated glomerular filtration rate (GFR) bkivgelzrstme3561-35-10 05:05:00* Test Item Value Reference Range Interpretation Comments Estimat Glomerular Filtration Rate (test code = 427706798) > 60 >60 Ranges were taken from the National Kidney Disease Education Program and the [employer] ional [employer] Foundation literature.Reference ranges:60 or greater: Pkdxno46-77 ( for 3 consecutive months): Chronic kidney disease 15 or less: Kidney failureMethodist Children's HospitalGlucose vmiatjqmltt5626-61-96 05:05:00* Test Item Value Reference Range Interpretation Comments Glucose Level (test code = RYV2068) 96 74-118 [facility] plasma calcium measurement (mass/volume)2020-02-04 05:05:00* Test Item Value Reference Range Interpretation Comments Calcium Level (test code = 43020-3) 8.6 8.4-10.2 [facility] HospitalUrine color myvxvfujmbtfr1761-73-09 15:33:00* Test Item Value Reference Range Interpretation Comments Urine Color (test code = 5778-6) YELLOW YELLOW [facility] HospitalUrine bfenpxq2787-66-31 15:33:00* Test Item Value Reference Range Interpretation Comments Urine Clarity (test code = 68141-6) SL CLOUDY CLEAR [facility] Hospitalpecific gravity of Urine by Test strip 2020-01-30 15:33:00* Test Item Value Reference Range Interpretation Comments Urine Specific [place] (test code = 5811-5) 1.025 1.010-1.02 5 [facility] HospitalU[facility] pH measurement by automated test vkvko2824-15-81 15:33:00* Test Item Value Reference Range Interpretation Comments Urine pH (test code = 10990-1) 7 5-7 [facility] HospitalU[facility] leukocyte esterase detection by ahyymsjp3515-35-90 15:33:00* Test Item Value Reference Range Interpretation Comments Urine Leukocyte Esterase (test code = 5799-2) NEGATIVE NEGATIVE [facility] HospitalUrine nitrite nwrshllcj8061-66-19 15:33:00* Test Item Value Reference Range Interpretation Comments Urine Nitrite (test code = 31688-4) NEGATIVE NEGATIVE [facility] HospitalUrine protein measurement by test strip (mass/volume)2020-01-30 15:33:00* Test Item Value Reference Range Interpretation Comments Urine Protein (test code = 5804-0) 1+ NEGATIVE [facility] HospitalUrine glucose qeaiqmfrd8372-26-82 15:33:00* Test Item Value Reference Range Interpretation Comments Urine Glucose (UA) (test code = 2349-9) NEGATIVE NEGATIVE [facility] HospitalUrine ketones detection by automated test qhnjl0055-07-23 15:33:00* Test Item Value Reference Range Interpretation Comments Urine Ketones (test code = 91031-2) 2+ NEGATIVE [facility] HospitalUrine urobilinogen measurement by test strip (mass/volume)2020-01-30 15:33:00* Test Item Value Reference Range Interpretation Comments Urine Urobilinogen (test code = 71149-1) 0.2 0.2-1 [facility] HospitalU[facility] total bilirubin measurement (mass/volume)2020-01-30 15:33:00* Test Item Value Reference Range Interpretation Comments Urine Bilirubin (test code = 1978-6) SMALL NEGATIVE [facility] HospitalU[facility] erythrocytes rjwthavjz0974-06-74 15:33:00* Test Item Value Reference Range Interpretation Comments Urine Blood (test code = 49352-5) TRACE NEGATIVE [facility] HospitalAutomated urine sediment leukocyte count by microscopy (number/high power field)2020-01-30 15:33:00* Test Item Value Reference Range Interpretation Comments Urine WBC (test code = 5821-4) NONE 0-5 [facility] HospitalErythrocytes detection in urine sediment by light jzzqtzrwgz4646-27-94 15:33:00* Test Item Value Reference Range Interpretation Comments Urine RBC (test code = 41676-8) NONE 0-5 [facility] HospitalBacteria detection in urine sediment by light jkoblrucqq8144-03-87 15:33:00* Test Item Value Reference Range Interpretation Comments Urine Bacteria (test code = 92045-1) FEW NONE [facility] HospitalEpithelial cells detection in urine sediment by light nyxmedxdap5810-59-51 15:33:00* Test Item Value Reference Range Interpretation Comments Urine Epithelial Cells (test code = 69858-3) NONE NONE [facility] HospitalPELVIS AP 1-2 KJKUP0746-68-34 14:55:00 [facility] [address] [place], [place] [address] Patient Name: WAYNE MCCARTNEY MR #: [id number] : 1930 Age/Sex: 89/M Req #: [id number] Adm Physician: JOSÉ MIGUEL CADET MD Ordered by: MIL MOISE MD Report #: [id number] Location: MED/SURG Natal[place] m/Bed: 100 Procedure: [id number] DX/PELVIS A P 1-2 VIEWS Exam Date: 01/30/20 Exam Time: 1430 REPORT STATUS: Signed EXAMINATION: PELVIS AP 1-2 VIEWS INDICATION: Postoperative COMPARISON: Pelvic a nd hip radiographs of 01/28/2020, bone scan of 01/26/2020 FINDINGS: AP view of the pelvis demonstrates postoperative findings of left proximal fe mur ORIF with 3 partially threaded screws. No displaced fracture. Mild degener ative changes of both viejas hip joints. Surgical skin cheikh in place. IM PRESSION: Anatomic alignment status post ORIF of the left proximal femur. Signed by: Hung Talley MD on 01/30/2020 2:57 PM Dictated By: HUNG TALLEY MD [id number] Transcribed By: RAMEZ BATRES on 01/30/20 1457 COPY TO: MIL MOISE MD Serum or plasma total bilirubin measurement (mass/volume)2020-01-29 06:21:00* Test Item Value Reference Range Interpretation Comments Total Bilirubin (test code = 1975-2) 0.7 0.2-1.2 [facility] HospitalFluoroscopic procedure less than one hour oogagynp5242-45-99 06:21:00* Test Item Value Reference Range Interpretation Comments Aspartate Amino Transf (AST/SGOT) (test code = Aspartate Amino Transf (AST/SGOT)) 21 5-34 [facility] or plasma alanine aminotransferase measurement (enzymatic activity/volume)2020-01-29 06:21:00* Test Item Value Reference Range Interpretation Comments Alanine Aminotransferase (ALT/SGPT) (test code = 1742-6) 8 0-55 [facility] or plasma protein measurement (mass/volume)2020-01-29 06:21:00* Test Item Value Reference Range Interpretation Comments Total Protein (test code = 2885-2) 6.1 6.5-8.1 [facility] plasma albumin measurement (mass/volume)2020-01-29 06:21:00* Test Item Value Reference Range Interpretation Comments Albumin (test code = 1751-7) 3.4 3.5-5.0 [facility] HospitalPlasma globulin measurement (mass/volume) 2020-01-29 06:21:00* Test Item Value Reference Range Interpretation Comments Globulin (test code = 60474-9) 2.7 2.3-3.5 [facility] or plasma albumin/globulin mass tnbxz6609-33-55 06:21:00* Test Item Value Reference Range Interpretation Comments Albumin/Globulin Ratio (test code = 1759-0) 1.3 0.8-2.0 [facility] or plasma alkaline phosphatase measurement (enzymatic activity/volume)2020-01-29 06:21:00* Test Item Value Reference Range Interpretation Comments Alkaline Phosphatase (test code = 6768-6) 76 40-150 [facility] creatine kinase measurement (enzymatic activity/volume)2020-01-29 06:21:00* Test Item Value Reference Range Interpretation Comments Creatine Kinase (test code = 2157-6) 54 30-200 [facility] creatine kinase MB measurement (mass/volume)2020-01-29 06:21:00* Test Item Value Reference Range Interpretation Comments Creatine Kinase MB (test code = 53591-4) 2.00 0-5.0 [facility] measurement by highly sensitive enzyme [id number] 06:21:00* Test Item Value Reference Range Interpretation Comments Troponin I (test code = 16244-8) 0.019 0-0.300 [facility] HospitalBlood cobalamin (vitamin B12) measurement (mass/volume)2020-01-29 06:21:00* Test Item Value Reference Range Interpretation Comments Vitamin B12 Level (test code = 31612-3) 656 213-816 [facility] thyrotropin measurement by detection limit <= 0.005 miu/l (units/volume)2020-01-29 06:21:00* Test Item Value Reference Range Interpretation Comments Thyroid Stimulating Hormone (TSH) (test code = 73074-0) 2.235 0.350-4.940 [facility] folate measurement (mass/volume)2020-01-29 06:21:00* Test Item Value Reference Range Interpretation Comments Folate (test code = 2284-8) 15.4 >3.0 A serum folate concentration of less than 3.1 ng/mL isconsidered to represent cl inical deficiency.Performed at: - [facility] [address] [id number] Director: Feliciano Case MD, Phone: [phone] Children's HospitalCHEST SINGLE (NOT PORTABLE)2020-01-28 13:54:00 [facility] [address] [place] [address] Patient Name: WAYNE MCCARTNEY MR #: [id number] : 1930 Age/Sex: 89/M Req #: [id number] Adm Physician: JOSÉ MIGUEL CADET MD Ordered by: KEITH ORLANDO MD Report #: [id number] Location: [facility] Room/Bed: [place] [address] Procedure: DX/CHEST SINGL E (NOT PORTABLE) Exam [...] HIP LEFT 2-3 VW (+/- PELVIS)2020-01-28 13:49:00 [place] [address] Patient Name: WAYNE MCCARTNEY MR #: [id number] : 1930 Age/Sex: 89/M Req #: [id number] Adm Physician: JOSÉ MIGUEL CADET MD Ordered by: KEITH ORLANDO MD Rep ort #: [id number] Location: [facility] Room/B ed: [place] [address] Procedure: DX/HIP LEFT 2- 3 VW (+/- [...] TO: KEITH ORLANDO MD CT CERVICAL SPINE [id number] 13:46:00 [place] [address] Patient Name: WAYNE MCCARTNEY MR #: [id number] : 1930 Age/Sex: 89/M Req #: [id number] Adm Physician: JOSÉ MIGUEL CADET MD Ordered by: KEITH ORLANDO MD Report #: [id number] Location: [facility] Room/Bed: [place] [address] Procedure: [id number] CT/CT CERVICAL SPINE WO Exam Date: 07/26/20 Exam Time: 1302 REPORT STATUS: Signed CT [...] COPY TO: KEITH ORLANDO MD CT BRAIN [id number] 13:39:00 [place] [address] Patient Name: WAYNE MCCARTNEY MR #: [id number] : 1930 Age/Sex: 89/M Req #: [id number] Adm Physician: JOSÉ MIGUEL CADET MD Ordered by: KEITH ORLANDO MD Report #: [id number] Location: [facility] Room/Bed: [facility] Procedure: [id number] CT/CT BRAIN WO Exam Date: 01/28/20 Exam [...] on 01/28/201343 Transcribed By: KLEVER MEZA on 01/28/20 134 COPY TO: KEITH ORLANDO MD Fluoroscopic procedure less than one hour [id number] 12:10:00* Test Item Value Reference Range Interpretation Comments Coronavirus (PCR) (test code = Coronavirus (PCR)) NOT DETECTED NOTD ETECTED Hologic Aptima SARS-CoV-2 assay is a nucleic amplification test intended for the qualitative detection of RNA from SARS-CoV-2 from nasopharyngeal ([employer]) specimens . It is used under Emergency [...] for reprat testing oc clinically indicated.Tesing performed by:[facility] [address] [place] [id number], Ephraim Villaseñor MD, PhD [facility] HospitalProthrombin time (PT) in platelet poor plasma by coagulation [id number] 11:15:00* Test Item Value Reference Range Interpretation Comments Prothrombin Time (test code = 5902-2) 13.4 11.9-14.5 [facility] HospitalINR in Platelet poor plasma by Coagulation [id number] 11:15:00* Test Item Value Reference Range Interpretation Comments Prothromb Time International Ratio (test code = 6301-6) 0.97 Oral Anticoagulant Therapy INR Values:1. Low Intensity Therapy 1.5 - 2.02 . Moderate Intensity Therapy 2.0 - 3.03. High Intensity Therapy(1) 2.5 - 3. 54. High Intensity Therapy(2) 3.0 - 4.05. Panic Value INR > 5.0 [facility] HospitalActivated partial thromboplastin time (aPTT) in platelet poor plasma by coagulation vkfgj9142-43-15 11:15:00* Test Item Value Reference Range Interpretation Comments Activated Partial Thromboplast Time (test code = 89001-5) 35.3 23.8-35.5 [facility] HospitalBNP Tdc-cJvo5123-67-26 11:15:00* Test Item Value Reference Range Interpretation Comments B-Type Natriuretic Peptide (test code = 65414-5) 401.4 0-100 [facility] HospitalB[facility], 3 [id number] 17:18:00 [facility] [address] [place] [address] Patient Name: WAYNE MCCARTNEY MR #: [id number] : 1930 Age/Sex: 89/M Req #: [id number] Adm Physician: Ordered by: MARTINE JACOBSEN Report #: [id number] Location: [place] Room/Bed: Procedure: [id number] NM/BONE SCAN, 3 PHASE Exam Date: 01/26/20 [...] HIP LEFT 2-3 VW (+/- PELVIS)2020-01-16 21:36:00 [place] [address] Patient Name: WAYNE MCCARTNEY MR #: [id number] : 1930 Age/Sex: 89/M Req #: [id number] Adm Physician: Ordered by: SAHIL CADET DO Report #: [id number] Location: ER Room/Bed: Procedure: [id number] DX/HIP LEFT 2-3 VW (+/- PELVIS) Exam [...] SAHIL PENDLETON DO FEMUR 2 VIEWS MINIMUM [id number] 21:33:00 [place] [address] Patient Name: WAYNE MCCARTNEY MR #: [id number] : 1930 Age/Sex: 89/M Req #: [id number] Adm Physician: Ordered by: SAHIL CADET DO Report #: [id number] Location: ER Room/Bed: Procedure: [id number] DX/FEMUR 2 VIEW S MINIMUM LEFT Exam [...] By: JOI CADET on 01/16/202133 COPY TO: CADETSAHIL DO COMPREHENSIVE METABOLIC [id number] 06:31:00* Test Item Value Reference Range Interpretation [...] due to change in reagent. COMPREHENSIVE METABOLIC [id number] 06:18:00* Test Item Value Reference Range Interpretation [...] code = ALKP) IUnit/L 45-117 CBC W/AUTO [id number] 05:53:00* Test Item Value Reference Range Interpretation [...] NRBC#) 0.00 K/mm3 0.0-0.1 N CBC W/AUTO [id number] 05:50:00* Test Item Value Reference Range Interpretation [...] code = BA#) K/mm3 0.0-0.2 COMPREHENSIVE METABOLIC [id number] 07:27:00* Test Item Value Reference Range Interpretation [...] due to change in reagent. COMPREHENSIVE METABOLIC [id number] 07:16:00* Test Item Value Reference Range Interpretation [...] code = ALKP) IUnit/L 45-117 CBC W/AUTO [id number] 07:05:00* Test Item Value Reference Range Interpretation [...] code = NRBC#) 0.00 K/mm3 0.0-0.1 N [id number] 20:39:00* Test Item Value Reference Range Interpretation Comments GLUBED (test code = GLUBED) 113 mg/dL 74-106 H Performed by certified steam plant operator at [facility] - XR CHEST 2 [id number] 13:02:00 FAX: Griselda Toure MD [phone] [place]: St: DIS FAX: Ondina Nova DO [phone] Name: WAYNE MCCARTNEY [facility] : 1930 Age/S: 89/M [address] [facility] Unit #: [id number] Loc: V.5013 [place] [address] Phys: Ondina Way DO Acct: [id number] Dis Date: [id number] Status: DIS IN PHONE #: [phone] Exam Date: 08/23/2019 1220 FAX #: [phone] Reason: S/P PPM INSERTION EXAMS: CPT CODE: [id number] XR CHEST 2 V 93553 REASON FOR EXAM: S/P PPM INSERTION Exam Order Date: 08/23/2019 5:00 AM Ordering MMichael: Ondina Nova DO PROCEDURE: - [...] IMPRES CHI: No acute cardiopulmonary process. Location: [facility] at 1302 Reported and signed by: Tyson Kamara MD CC: Daksha Smith ma, MD; Ondina Nova DO Technologist: Margo Babin RT(R) Trnscrd Date/Time/By: 08/23/2019 (7323) : By: [email or web address] Orig Print D/T: S: 08/23/2019 (9956) PAGE 1 Signed Report - XR CHEST 2 [id number] 13:02:00 FAX: Griselda Toure MD [phone] [place]: St: ADM FAX: Ondina Nova DO [phone] Name: WAYNE MCCARTNEY [facility] : 1930 Age/S: 89/M [address] [facility] Unit #: [id number] Loc: V.5013 [place] [address] Phys: Ondina Way DO Acct: [id number] Dis Date: Status: ADM IN PHONE #: [phone] Exam Date: 08/23/2019 1220 FAX #: [phone] Reason: S/P PPM INSERTION EXAMS: CPT CODE: [id number] XR CHEST 2 V 81063 REASON FOR EXAM: S/P PPM INSERTION Exam [...] IMPRES CHI: No acute cardiopulmonary process. Location: [facility] at 1302 Reported and signed by: Tyson Kamara MD CC: Daksha Smith ma, MD; Ondina Nova DO Technologist: Margo Babin RT(R) Trnscrd Date/Time/By: 08/23/2019 (1069) : By: t .[email or web address] Orig Print D/T: S: 08/23/2019 (2959) PAGE 1 Signed Report - XR CHEST 1 [id number] 13:43:00 FAX: Griselda Toure MD [phone] [place]: St: DIS FAX: Ondina Nova DO [phone] Name: WAYNE MCCARTNEY [facility] : 1930 Age/S: 89/M [address] [facility] Unit #: [id number] Loc: V.5013 [place] [address] Phys: Ondina Way DO Acct: [id number] Dis Date: [id number] Status: DIS IN PHONE #: [phone] Exam Date: 08/22/2019 1328 FAX #: [phone] Reason: S/P PPM INSERTION EXAMS: CPT CODE: [id number] XR CHEST 1 V 00230 REASON FOR EXAM: S/P PPM INSERTION Exam [...] lectasis in the left lung base. Location: [facility] at 1343 Reported and signed by: Tyson Kamara MD CC: Griselda Smith MD; Ondina Pop DO Technologist: Hodan Key(R); STUDENT T ECHNOLOGIST Trnscrd Date/Time/By: 08/22/2019 (9439) : By: [email or web address] Orig Print D/T: S: 08/22/2019 (7190) PAGE 1 Signed Report - XR CHEST 1 V 2019-08-22 13:43:00 FAX: Griselda Toure MD [phone] [place]: St: ADM FAX: Ondina Nova DO [phone] Name: WAYNE MCCARTNEY [facility] : 1930 Age/S: 89/M [address] Unit #: [id number] Loc: V.4032 [place] [address] Phys: Ondina Way DO Acct: [id number] Dis Date: Status: ADM IN PHONE #: [phone] Exam Date: 08/22/2019 1328 FAX #: [phone] Reason: S/P PPM INSERTION EXAMS: CPT CODE: [id number] XR CHEST 1 V 50439 REASON FOR EXAM: S/P PPM INSERTION Exam [...] lectasis in the left lung base. Location: [facility] at 1343 Reported and signed by: Tyson Kamara MD CC: Griselda Smith MD; Ondina Pop DO Technologist: Hodan Key(Jeane); STUDENT T ECHNOLOGIST Trnscrd Date/Time/By: 08/22/2019 (2258) : By: [email or web address] Orig Print D/T: S: 08/22/2019 (7938) PAGE 1 Signed Report BASIC METABOLIC [id number] 05:59:00* Test Item Value Reference Range Interpretation [...] CA) 8.7 mg/dL 8.5-10.1 N BASIC METABOLIC [id number] 05:54:00* Test Item Value Reference Range Interpretation [...] code = CA) mg/dL 8.5-10.1 CBC W/AUTO [id number] 05:23:00* Test Item Value Reference Range Interpretation [...] NRBC#) 0.00 K/mm3 0.0-0.1 N BASIC METABOLIC [id number] 05:12:00* Test Item Value Reference Range Interpretation [...] CA) 8.4 mg/dL 8.5-10.1 L BASIC METABOLIC [id number] 05:11:00* Test Item Value Reference Range Interpretation [...] CA) 8.4 mg/dL 8.5-10.1 L CBC W/AUTO [id number] 04:45:00* Test Item Value Reference Range Interpretation [...] (test code = MDIFF) NO CBC W/AUTO [id number] 04:33:00* Test Item Value Reference Range Interpretation [...] # (test code = BA#) K/mm3 0.0-0.2 [id number] 09:17:00* Test Item Value Reference Range Interpretation Comments PHOSPHORUS (test code = PHOS) 3.2 mg/dL 2.5-4.9 N THYROID STIMULATING [id number] 09:17:00* Test Item Value Reference Range Interpretation Comments THYROID STIMULATING HORMONE (test code = TSH) 3.080 uIU/mL 0.36-3.7 4 N TSH REFERENCE RANGES: EUTHYROID: 0.35 - 4.3 mIU/mL HYPO : > 5.5 mIU/mL HYPER : < 0.35 mIU/mL BASIC METABOLIC [id number] 09:17:00* Test Item Value Reference Range Interpretation [...] code = CA) 8.5 mg/dL 8.5-10.1 N [id number] 09:17:00* Test Item Value Reference Range Interpretation Comments MAGNESIUM (test code = MAG) 2.2 mg/dL 1.8-2.4 N [id number] 09:17:00* Test Item Value Reference Range Interpretation Comments TROPONIN-I (test code = TROPI) <0.015 ng/mL 0-0.045 N PROTHROMBIN [id number] 09:04:00* Test Item Value Reference Range Interpretation [...] (2.5-3.5) IS PATIENT ON ANTICOAGULANTS? NTHROMBOPLASTIN TIME [id number] 09:04:00* Test Item Value Reference Range Interpretation Comments THROMBOPLASTIN TIME PARTIAL (test code = PTT) 31.4 seconds 25.0-36. 5 N IS PATIENT ON ANTICOAGULANTS? NBASIC METABOLIC [id number] 09:04:00* Test Item Value Reference Range Interpretation [...] CALCIUM (test code = CA) mg/dL 8.5-10.1 [id number] 09:04:00* Test Item Value Reference Range Interpretation Comments MAGNESIUM (test code = MAG) mg/dL 1.8-2.4 [id number] 09:04:00* Test Item Value Reference Range Interpretation Comments TROPONIN-I (test code = TROPI) ng/mL 0-0.045 - XR CHEST 1 [id number] 09:02:00 FAX: Alivia Reddy [place]: B St: DIS Name: WAYNE GAITAN [facility] : [birth year] Age/S: 89/M [address] Unit #: [id number] Loc: V.5013 [place] [address] Phys: Alivia Reddy DO Acct: [id number] Dis Date: [id number] Status: DIS IN PHONE #: [phone] Exam Date: 08/20/201953 FAX #: [phone] Reason: CHEST PAIN EXAMS: CPT CODE: [id number] XR CHEST 1 V 52387 HISTORY: CHEST PAIN TECHNIQUE: AP chest x-ray [...] 1 Signed Report - XR CHEST 1 [id number] 09:02:00 FAX: Alivia Reddy [facility]: B St: REG Name: WAYNE GAITAN [facility] : [birth year] Age/S: 89/M [address] Unit #: [id number] Loc: [place] [address] Phys: Alivia Reddy DO Acct: [id number] Dis Date: Status: REG ER PHONE #: [phone] Exam Date: 08/20/2019 0853 FAX #: [phone] Reason: CHEST PAIN EXAMS: CPT CODE: [id number] XR CHEST 1 V 14476 HISTORY: CHEST PAIN TECHNIQUE: AP chest x-ray [...] (904) PAGE 1 Signed Report CBC W/O [id number] 09:00:00* Test Item Value Reference Range Interpretation [...] MPV) 11.1 fL 6.7-11.0 H MODIFIED BA. [id number] 12:35:00 [facility] [address] [place] [address] Patient Name: WAYNE MCCARTNEY MR #: [id number] : 1930 Age/Sex: 88/M Req #: [id number] Adm Physician: Ordered by: MARTINE JACOBSEN Report #: [id number] Location: DX Room/Bed: Procedure: [id number] DX /MODIFIED BA. SWALLOW Exam Date: 03/15/19 [...] of laryngeal penetration and no aspiration. [facility] demonstrating one episode of laryngeal penetration and no as piration. Please refer to the speech pathology report for further details. Signed by: Hung Talley MD on 03/20/2019 12:38 PM Dictated By: HUNG Burrows 1238 Transcribed By: JOI CADET on 03/20/19 1238 COPY TO: MARTINE JACOBSEN MODIFIED BA. [id number] 08:45:00 [facility] [address] [place] [address] Patient Name: WAYNE MCCARTNEY MR #: [id number] : 1930 Age/Sex: 88/M Req #: [id number] Adm Physician: Ordered by: MARTINE JACOBSEN Report #: [id number] Location: DX Room/Bed: Procedure: [id number] DX/M ODIFIED BA. SWALLOW Exam Date: 02/10/19 [...] 0845 COPY TO: MARTINE JACOBSEN MODIFIED BA. [id number] 13:40:00 [place] [address] [place] [address] Patient Name: WAYNE MCCARTNEY MR #: [id number] : 1930 Age/Sex: 88/M Req #: [id number] Adm Physician: Ordered by: STARR BANUELOS MD Report #: [id number] Location: DX Room/Bed: Procedure: 4 DX/MODIFIED BA. SWALLOW Exam Date: 01/03/19 [...] 1340 COPY TO: STARR BANUELOS MD CHEM [id number] 16:05:000[facility] [id number] 16:05:0087[facility]
[2020-02-10] MEDS: CARBIDOPA/LEVODOPA 25/100 TAB PO SCH ×2 (18:53→21:20)
--- NOTE | 2020-02-10 20:30 | NUR ---
Patient arrived from ED as a new admit with diagnoses of dehydration, diarrhea and syncope. Pt alert and oriented x2-3 (but pt mostly able to answer questions efficiently and correctly). Pt on strict bed rest at this time. Pt to be turned Q2hr since pt has stage redness on bilateral buttocks. Allevyn foam dressing applied on buttocks for protection. Wall noted on left side of hip (s/p hip surgery in past). Pt has betts catheter and is incontinent of bladder and bowel. Pt on IVF (NS at 100ml/hr). Bed alarm active. Call barron within reach. Will monitor closely.
[2020-02-10 20:49] VITALS: BP 132/83
[2020-02-10 21:00] VITALS: BP 132/83
[2020-02-10] MEDS: SODIUM CHLORIDE 0.9% 1000ML 1,000 ML IV SCH (21:17)
--- NOTE | 2020-02-10 22:07 | NUR ---
Pt extra belongings (clothes) brought up to floor from ED. Original hospital coder adapter was misplaced but replaced with compatible iphone adapter. Explained to pt the situation and pt appreciated the new adapter given to him.
[2020-02-10] MEDS ORDERED: DULCOLAX SUPP10 MG RC (23:29)
[2020-02-10] MEDS ORDERED: ASCORBIC ACID500 M2 PO (23:29)
[2020-02-10] MEDS ORDERED: SENOKOT-S TABL1 EACH PO (23:29)
[2020-02-10] MEDS ORDERED: ACETAMINOPHEN325 M1 PO (23:29)
[2020-02-10] MEDS ORDERED: XARELTO10 MG PO (23:29)
[2020-02-10] MEDS ORDERED: MAGNESIUM OXID400 MG PO (23:29)
[2020-02-10] MEDS ORDERED: OLOPATADINE OU (23:29)
[2020-02-10] MEDS ORDERED: ZOFRAN4 MG PO (23:29)
[2020-02-10] MEDS ORDERED: NORCO 5-325 TA1 EACH PO (23:29)
[2020-02-10] MEDS ORDERED: METOPROLOL TART50 MG PO (23:29)
[2020-02-10] MEDS ORDERED: POTASSIUM CHLO10 ME1 PO (23:29)
[2020-02-10] MEDS ORDERED: SYSTANE 0.3-0.415 ML OU (23:32)
--- NOTE | 2020-02-10 23:34 | NUR ---
Talked to patient and explained the importance of being turned in bed. Patient refused to be turned and stated he's comfortable laying on his back at this time.
[2020-02-11] VITALS (8 sets, daily range): BP systolic 116–143; BP diastolic 70–84
[2020-02-11] MEDS ORDERED: HYDROCODONE/APAP 5MG-325MG TAB PO PRN (00:15)
[2020-02-11] MEDS ORDERED: BISACODYL 10 MG SUPP PR PRN (00:15)
[2020-02-11] MEDS ORDERED: ACETAMINOPHEN 325 MG TAB PO PRN (00:15)
[2020-02-11] MEDS ORDERED: NON-FORMULARY MEDICATION (Ondansetron Hcl* (Zofran*) 4 MG) PO PRN (00:15)
[2020-02-11] MEDS ORDERED: ONDANSETRON HCL 4 MG ORAL DISINTEGRATING TAB PO PRN (00:45)
[2020-02-11] MEDS: SODIUM CHLORIDE 0.9% 1000ML 1,000 ML IV SCH ×2 (06:30→16:36)
[2020-02-11 06:38] LABS: BASOPHILS % 0.9 % (0.0-1.0); EOSINOPHILS # (AUTO) 0.1 (0.0-0.4); EOSINOPHILS % 1.1 % (0.0-6.0); HEMATOCRIT 37.6 % (38.2-49.6); HEMOGLOBIN 13.6 g/dL (14.0-18.0); LYMPHOCYTES # (AUTO) 0.9 (1.0-3.2); LYMPHOCYTES % 18.8 % (18.0-39.1); MEAN CORPUSCULAR HEMOGLOBIN 37.2 pg (28-32); MEAN CORPUSCULAR HGB CONC 36.2 g/dL (31-35); MONOCYTES # (AUTO) 0.8 (0.2-0.8); MONOCYTES % 16.3 % (4.4-11.3); NEUTROPHILS # (AUTO) 2.9 (2.1-6.9); NEUTROPHILS % 62.3 % (38.7-80.0); PLATELET COUNT 211 x10e3/uL (140-360); RED BLOOD COUNT 3.66 x10e6/uL (4.3-5.7); RED CELL DISTRIBUTION WIDTH 13.8 % (11.7-14.4)
[2020-02-11 07:04] LABS: ALANINE AMINOTRANSFERASE 8 IU/L (0-55); ALBUMIN 3.2 g/dL (3.5-5.0); ALBUMIN/GLOBULIN RATIO 1.1 (0.8-2.0); ALKALINE PHOSPHATASE 103 IU/L (40-150); ANION GAP 12.8 mmol/L (8-16); BLOOD UREA NITROGEN 14 mg/dL (7-26); BUN/CREATININE RATIO 18 (6-25); CALCIUM 8.8 mg/dL (8.4-10.2); CARBON DIOXIDE 27 mmol/L (22-29); CHLORIDE 103 mmol/L (98-107); CHOL/HDL RATIO 3.8 (3.9-4.7); CHOLESTEROL 138 MD/DL (0-199); CREATININE, SERUM 0.79 mg/dL (0.72-1.25); EST GLOMERULAR FILTRATION RATE > 60 ML/MIN (60-); GLUCOSE 77 mg/dL (74-118); HDL CHOLESTEROL 36 MG/DL (40-60); LDL CHOLESTEROL 90 MG/DL (60-130); SODIUM 138 mmol/L (136-145); TRIGLYCERIDES 59 MG/DL (0-149)
[2020-02-11 07:07] LABS: POTASSIUM 4.8 mmol/L (3.5-5.1)
--- NOTE | 2020-02-11 07:25 | NUR ---
PATIENT IN BED RESTING WITH EYES CLOSED, NO DISTRESS NOTED. WILSON CATHETER DRAINING CLEAR YELLOW URINE. ADITHYA INTACT TO LEFT HIP OLD INCISION. BED IN LOWER POSITION, CALL LIGHT AT REACH.
[2020-02-11 07:29] LABS: MEAN CORPUSCULAR VOLUME 102.7 fL (81-99)
[2020-02-11] MEDS ORDERED: OLOPATADINE OU SCH (09:00)
[2020-02-11] MEDS: OLOPATADINE 5 ML BTL OP SCH ×2 (09:01→20:08)
[2020-02-11] MEDS: MULTIVITAMINS/MINERALS TAB PO SCH (09:01)
[2020-02-11] MEDS: RIVAROXABAN 10 MG TABLET PO SCH (09:01)
[2020-02-11] MEDS: MAGNESIUM OXIDE 400 MG TAB PO SCH ×2 (09:01→17:14)
[2020-02-11] MEDS: CARBIDOPA/LEVODOPA 25/100 TAB PO SCH ×3 (09:01→20:08)
[2020-02-11] MEDS: METOPROLOL TARTRATE 50 MG TAB PO SCH ×2 (09:01→17:14)
[2020-02-11] MEDS: ASCORBIC ACID 500 MG TAB PO SCH ×2 (09:01→17:14)
--- NOTE | 2020-02-11 12:28 | History and Physical ---
CHIEF COMPLAINT: Syncope while sitting, eating lunch at the [employer], the patient completely passed out. He also has massive diarrhea in the diaper. The patient in the emergency room was responsive. Baseline Parkinson disease and dementia. HISTORY OF PRESENT ILLNESS: The patient is an 89-year-old male, recently had status post fall with left femoral neck fractures, status post left femoral neck open reduction and internal fixation done by Dr. Mil Brito. Procedure was done while he was hospitalized from 01/28/2020 to 02/05/2020. The patient was getting physical therapy. While eating, sitting he completely passed out. He does have a left permanent pacemaker. The patient had dementia. Not much history can be obtained at this time, but the patient is stable. PAST MEDICAL HISTORY: Recent ORIF of the left hip. Atrial fibrillation on anticoagulant therapy, Xarelto. Permanent pacemaker placement of left upper chest. Parkinson disease, hypertension, congestive heart failure, osteoarthritis, enlarged prostate. PAST SURGICAL HISTORY: Left hip ORIF. Permanent pacemaker placement. SOCIAL HISTORY: The patient lives with his . He does not smoke or use alcohol. No regular drugs. ALLERGIES: NO KNOWN ALLERGIES. HOME MEDICATIONS: List is reviewed. REVIEW OF SYSTEMS: The patient is awake, alert, comfortable. He does have Parkinson disease without any focal deficit complaint of. He denies any chest pain or shortness of breath vaguely. PHYSICAL EXAMINATION: VITAL SIGNS: Temperature was 98, blood pressure 126/78, pulse rate 88, respirations 18. GENERAL: The patient is not in acute distress. He is awake. HEENT: Normocephalic, atraumatic. Anicteric. NECK: Supple grossly. PULMONARY: Diminished breath sounds bilaterally without any wheezing or rales. CARDIOVASCULAR: S1, S2. Left permanent pacemaker. ABDOMEN: Soft, nontender, non-distention. EXTREMITIES: Status post left hip ORIF. No edema. No cyanosis. NEUROLOGIC: The patient moving all extremities. He does have Parkinson disease and dementia. LABORATORY DATA: Sodium is 137, potassium 3.8, chloride 99, bicarb 27, BUN 16, creatinine 0.8, glucose 157. WBC is 5.3, hemoglobin 13.4, hematocrit 40, platelet is 304. Urinalysis unremarkable. Stool for occult blood negative. Serologies, C difficile toxin is negative. Coronavirus PCR is still pending. IMPRESSION: 1. Syncopal episode. 2. History of sick sinus syndrome, had a permanent pacemaker. 3. Parkinson disease. 4. Hypertension. 5. Dementia. 6. Recent left hip open reduction and internal fixation. PLAN: Consultation with Cardiology, Dr. Nikko Chavez. Continue with home medication. We will need to have permanent pacemaker in irrigation. Physical therapy. We will monitor the patient closely at this time. MD LORA Murray/ANNETTE /[id number]
--- NOTE | 2020-02-11 15:35 | NUR ---
PATIENT REPOSITIONED IN BED BY 2 STAFFS, HEAD OF BED ELEVATED. BED IN LOWER POSITION, CALL LIGHT AT REACH.
--- NOTE | 2020-02-11 16:35 | NUR ---
PATIENT ASSISTED WITH DIAPER CHANGE, HAD A LARGE BM.
--- NOTE | 2020-02-11 19:15 | NUR ---
Patient visited in room during nursing rounds. Pt alert and oriented x2-3 (but pt mostly able to answer questions efficiently and correctly). Pt on strict bed rest at this time. Pt to be turned Q2hr since pt has redness on bilateral buttocks with Allevyn foam dressing in place to buttocks for protection. Chana noted on left side of hip (s/p hip surgery in past). Pt has betts catheter and is incontinent of bladder and bowel. Pt on IVF (NS at 100ml/hr). at bedside and asked questions to nurse (Mario). Mario was able to answer questions (e.g. plan of care, etc.) to her satisfaction. said she will leave tonight but will be back tomorrow morning and talk to Dr. Dubon. Bed alarm active. Call barron within reach. Will monitor closely.
[2020-02-11] MEDS: ARTIFICIAL TEARS (OPTH) 15 ML BTL OU SCH (20:08)
[2020-02-11] MEDS: TAMSULOSIN HCL 0.4 MG CAP PO SCH (20:08)
[2020-02-11] MEDS: DONEPEZIL HCL 5 MG TAB PO SCH (20:08)
[2020-02-11] MEDS ORDERED: PEG OU SCH (21:00)
[2020-02-11] MEDS ORDERED: PROPYLENE GLYCOL OU SCH (21:00)
[2020-02-12] VITALS (8 sets, daily range): BP systolic 115–130; BP diastolic 70–83
[2020-02-12] MEDS: SODIUM CHLORIDE 0.9% 1000ML 1,000 ML IV SCH (02:39)
[2020-02-12] MEDS ORDERED: CARBIDOPA/LEVODOPA 25/100 TAB PO SCH ×2 (06:00→13:00)
--- NOTE | 2020-02-12 06:05 | NUR ---
Patient repositioned in bed. Pillow placed under legs for extra comfort. Patient stable and denies pain or discomfort at this time.
--- NOTE | 2020-02-12 07:00 | NUR ---
received bedside report. pt is sleeping, no s/s of distress. call light within reach and bed safety in place
[2020-02-12] MEDS: METOPROLOL TARTRATE 50 MG TAB PO SCH ×2 (09:14→17:24)
[2020-02-12] MEDS: RIVAROXABAN 10 MG TABLET PO SCH (09:14)
[2020-02-12] MEDS: MULTIVITAMINS/MINERALS TAB PO SCH (09:14)
[2020-02-12] MEDS: MAGNESIUM OXIDE 400 MG TAB PO SCH ×2 (09:14→17:24)
[2020-02-12] MEDS: ASCORBIC ACID 500 MG TAB PO SCH ×2 (09:14→17:24)
[2020-02-12] MEDS: OLOPATADINE 5 ML BTL OP SCH ×3 (09:14→23:57)
[2020-02-12] MEDS: CARBIDOPA/LEVODOPA 25/100 TAB PO SCH ×4 (10:45→20:00)
--- NOTE | 2020-02-12 11:57 | Diagnostic Imaging Report ---
EXAMINATION: HIP LEFT 2-3 VW (+/- PELVIS) INDICATION: Postoperative COMPARISON: None FINDINGS: Postoperative findings of open reduction internal fixation of the left proximal femur with 3 partially threaded screws. Alignment appears anatomic. No unexpected fracture. Old left pubic fractures. Moderate degenerative changes of the [place] right hip joint. Mild degenerative changes of the left hip joint. Surgical skin cheikh at the lateral left thigh. IMPRESSION: Postoperative findings of left proximal femur ORIF. No acute osseous injury. Signed by: Kelvin Kimball MD on 02/12/2020 11:53 AM
--- NOTE | 2020-02-12 13:10 | NUR ---
WOUND CARE CONSULT FOR 89 YO MALE HX OF DEHYDRATION ,SYNCOPAL EPISODES ,DIARRHEA KATHE 13 ON MODERATE PUP STATUS AND INTERVENTIONS AND ALTERNATING MATTRESS LABS: WBC-4.67 HGB_13.6 GLUCOSE-77 SKIN ASSESSMENT COMPLETE PATIENT PRESENTS WITH BILATERAL ELBOW ABRASIONS R/T FALL LEFT HIP STAPLE LINE BILATERAL INNER GLUTEAL HEALING STAGE 2 ULCERATION NO LONGER OPEN DUSKY RED COLORATION MEASURES 4CM X 9CM RECOMMENDATIONS: NURSING TO CONTINUE TO MAINTAIN MODERATE PUP STATUS AND INTERVENTIONS AND ALTERNATING PRESSURE MATTRESS NURSING TO CONTINUE TO ASSIST PATIENT OUT OF BED FOR MEALS AND MUCH TOLERATED NURSING TO CONTINUE TO ASSIST PATIENT NEEDED WITH MEALS AND NUTRITIONAL SUPPLEMENTS TO ENSURE PROPER REQUIREMENTS FOR HEALING NURSING TO CONTINUE TO OFFLOAD FEET AND HEELS NEEDED WITH PILLOW SUSPENSION WHEN IN BED NURSING TO CLEAN BILATERAL ELBOW ABRASIONS , LEFT HIP STAPLE LINE AND BILATERAL INNER GLUTEAL HEALING STAGE 2 ULCERATION WITH NORMAL SALINE DAILY AND APPLY VENELEX OINTMENT AND ALLEVYN FOAM DRESSINGS
--- NOTE | 2020-02-12 13:14 | NUR ---
pt is resting comfortably in bed, no s/s of distress, pt reposition and turned to right side. is at the bedside. no complaints at this time. call light within reach and bed safety in place
--- NOTE | 2020-02-12 14:27 | NUR ---
SPOKE WITH PABLO SHE IS AGREEABLE TO TRY FOCUSED CARE [facility]
--- NOTE | 2020-02-12 15:31 | NUR ---
STILL PENDING PT NOTE, FROM TODAY, WILL NEED TO FAX WHEN AVAILABLE.
--- NOTE | 2020-02-12 15:31 | NUR ---
FAXED CLINICALS TO [facility]
[2020-02-12] MEDS: CEPHALEXIN 500 MG CAP PO SCH ×2 (17:24→23:57)
[2020-02-12] MEDS: TAMSULOSIN HCL 0.4 MG CAP PO SCH (20:22)
[2020-02-12] MEDS: DONEPEZIL HCL 5 MG TAB PO SCH (20:22)
[2020-02-12] MEDS: ARTIFICIAL TEARS (OPTH) 15 ML BTL OU SCH ×2 (20:22→23:57)
--- NOTE | 2020-02-12 21:41 | NUR ---
Bright red urine noted in [place] catheter drainage bag. No evidence of external genital trauma. Dr. Dubon notified. New orders received. Will implement new orders and continue to monitor pt.
[2020-02-13] VITALS (8 sets, daily range): BP systolic 110–138; BP diastolic 71–88
[2020-02-13 05:48] LABS: BASOPHILS % 0.4 % (0.0-1.0); EOSINOPHILS # (AUTO) 0.1 (0.0-0.4); EOSINOPHILS % 1.7 % (0.0-6.0); HEMATOCRIT 37.9 % (38.2-49.6); LYMPHOCYTES # (AUTO) 0.8 (1.0-3.2); LYMPHOCYTES % 15.5 % (18.0-39.1); MEAN CORPUSCULAR HEMOGLOBIN 33.7 pg (28-32); MEAN CORPUSCULAR HGB CONC 34.3 g/dL (31-35); MEAN CORPUSCULAR VOLUME 98.2 fL (81-99); MONOCYTES # (AUTO) 0.6 (0.2-0.8); MONOCYTES % 10.6 % (4.4-11.3); NEUTROPHILS # (AUTO) 3.8 (2.1-6.9); NEUTROPHILS % 71.4 % (38.7-80.0); PLATELET COUNT 233 x10e3/uL (140-360); RED BLOOD COUNT 3.86 x10e6/uL (4.3-5.7); RED CELL DISTRIBUTION WIDTH 12.6 % (11.7-14.4)
[2020-02-13] MEDS: CEPHALEXIN 500 MG CAP PO SCH ×4 (06:00→23:32)
[2020-02-13] MEDS: MULTIVITAMINS/MINERALS TAB PO SCH (08:36)
[2020-02-13] MEDS: CARBIDOPA/LEVODOPA 25/100 TAB PO SCH ×4 (08:36→20:30)
[2020-02-13] MEDS: METOPROLOL TARTRATE 50 MG TAB PO SCH ×2 (08:36→16:30)
[2020-02-13] MEDS: ASCORBIC ACID 500 MG TAB PO SCH ×2 (08:36→16:30)
[2020-02-13] MEDS: MAGNESIUM OXIDE 400 MG TAB PO SCH ×2 (08:36→16:30)
[2020-02-13] MEDS: RIVAROXABAN 10 MG TABLET PO SCH (08:36)
[2020-02-13] MEDS: BALSAM PERU/CASTOR OIL 60 GM OINT...G. TP SCH (13:42)
--- NOTE | 2020-02-13 15:15 | NUR ---
FAXED PT NOTES TO FACILITY
[2020-02-13] MEDS ORDERED: POLYETHYLENE GLYCOL 3350 17 GM PACK PO PRN (17:30)
[2020-02-13] MEDS: TAMSULOSIN HCL 0.4 MG CAP PO SCH (20:30)
[2020-02-13] MEDS: OLOPATADINE 5 ML BTL OP SCH (20:30)
[2020-02-13] MEDS: NYSTATIN SUSPENSION 5 ML UDC PO SCH (20:30)
[2020-02-13] MEDS: DONEPEZIL HCL 5 MG TAB PO SCH (20:30)
[2020-02-14 00:17] VITALS: BP 126/88
[2020-02-14 05:09] VITALS: BP 135/71
[2020-02-14] MEDS: CEPHALEXIN 500 MG CAP PO SCH ×2 (05:49→13:08)
--- NOTE | 2020-02-14 07:00 | NUR ---
RECEIVED PATIENT RESTING IN BED NO S/S OF DISTRESS. BED LOW, WHEELS LOCKED, SIDE RAILS X2. CALL LIGHT IN REACH WILL CONTINUE TO MONITOR PATIENT.
[2020-02-14 07:53] VITALS: BP 142/79
[2020-02-14] MEDS: BALSAM PERU/CASTOR OIL 60 GM OINT...G. TP SCH (08:37)
[2020-02-14] MEDS: OLOPATADINE 5 ML BTL OP SCH (08:37)
[2020-02-14] MEDS: MULTIVITAMINS/MINERALS TAB PO SCH (08:37)
[2020-02-14] MEDS: MAGNESIUM OXIDE 400 MG TAB PO SCH (08:37)
[2020-02-14] MEDS: ASCORBIC ACID 500 MG TAB PO SCH (08:37)
[2020-02-14] MEDS: NYSTATIN SUSPENSION 5 ML UDC PO SCH (08:37)
[2020-02-14] MEDS: CARBIDOPA/LEVODOPA 25/100 TAB PO SCH ×2 (08:37→13:22)
[2020-02-14] MEDS: METOPROLOL TARTRATE 50 MG TAB PO SCH (08:39)
--- NOTE | 2020-02-14 09:24 | NUR ---
CORRECTION FACILITY DISCHARGE INFORMATION PATIENT HAS BEEN ACCEPTED TO: NAME: [facility] ADDRESS: [id number] [place] [address] ACCEPTING PROGRAM MANAGER RN: SHERIN DORADO ACCEPTING MD: TYLER ROOM:[id number] NURSE CALL REPORT TO: [phone] IMM SIGNED AND OBTAINED (if applicable): IMM THE FOLLOWING DOCUMENTS MUST ACCOMPANY PATIENT FOR TRANSFER: COPIED CHART: PACKET
[2020-02-14 10:13] VITALS: BP 142/79
--- NOTE | 2020-02-14 11:56 | NUR ---
OK TO DC PATIENT TO SNF WITH [facility] PER DR. CADET. PATIENT TO FOLLOW UP WITH DR. MOISE IN 1-2 WEEKS.
[2020-02-14 12:00] VITALS: BP 99/63
--- NOTE | 2020-02-14 12:23 | NUR ---
REPORT CALLED TO TAMAR HERNANDEZ AT [facility]. SUMMARY OF CARE PROVIDED.
--- NOTE | 2020-02-14 12:45 | NUR ---
REMOVED PATIENTS IV. CATHETER TIP INTACT AND PRESSURE DRESSING APPLIED.
[2020-02-14] MEDS: RIVAROXABAN 10 MG TABLET PO SCH (13:22)
--- NOTE | 2020-02-14 14:44 | NUR ---
PATIENT DISCHARGED TO [facility] WITH EMS IN STABLE CONDITION. GATHERED ALL PERSONAL BELONGINGS.
--- NOTE | 2020-03-23 13:19 | Discharge Summary ---
PRIMARY CARE PHYSICIAN: Ankit Jacobsen FINAL DIAGNOSES: 1. Status post fall, previously with status post left hip open reduction and internal fixation. 2. Dehydration, diarrhea, and falling. 3. Progressive decline. SUMMARY: The patient is 89 years old male, [facility]. There, the patient was able to do some physical therapy, but because of spouse unable to see the patient due to COVID-19 pandemic, the patient subsequently was brought back to the hospital with dehydration, with diarrhea, and also episode of per note passing out. The patient has advanced Parkinson disease, but the patient is somewhat able to do things for himself. He does have a left permanent pacemaker. Permanent pacemaker interrogation was otherwise unremarkable previously. X-ray of the left hip was stable as well. Discussed with Mrs. Gutiérrez regarding placement for Mr. Gutiérrez and then subsequently discussed about how was the next step as far as care for the patient after the skilled placement and max physical therapy. The patient subsequently placed to the skilled facility after agreeable and with assistance of the case managers. The patient was discharged. Medication reconciliation was done. Continue with outpatient management and monitoring at the skilled facility and subsequently may need further plan after discharge from the skilled facility. The patient will go to [facility] [place] on February 13. The patient will continue with his physical therapy, fall precaution management. Medication reconciliation was done and the patient is to be followed by his family physician after he is discharged from the skilled facility. Case discussed with the patient's spouse, Mrs. Gutiérrez and she expressed understanding and has reasonable expectation for her spouse. MD LORA Murray/MODL /[id number]
== END 2020-02-14 14:44 | DRG 56 ==
LOC: ER 13:15 → ERHOLD 14:59 → MED/SURG3 20:35
PROVIDERS: ADMIT Internal Medicine; ATTEND Internal Medicine
DX: G90.3 Multi-system degeneration of the autonomic nervous system (principal); G93.41 Metabolic encephalopathy; E86.0 Dehydration; G20 Parkinson's disease; F02.80 Dementia in other diseases classified elsewhere, unspecified severity, without behavioral disturbance, psychotic disturbance, mood disturbance, and anxiety; Z95.0 Presence of cardiac pacemaker; R19.7 Diarrhea, unspecified; I50.9 Heart failure, unspecified; L89.302 Pressure ulcer of unspecified buttock, stage 2; Z91.81 History of falling
CPT/HCPCS: 36415; 70450; 71045; 72170; 80053; 80061; 81001; 82270; 82550; 82553; 83605; 83735; 84484; 85025; 85610; 85730; 87040; 87086; 87493; 93005; 97139; 99284; J7030; U0002